=== PATIENT | female | born 1935 | race Native Hawaiian/Other Pacific Islander ===

== ENCOUNTER 2018-03-30 10:27 | Emergency (ER) | payer MEDICARE ==
[2018-03-30 10:42] VITALS: BMI 30.1
--- NOTE | 2018-03-30 10:52 | ED PDOC ---
Arrival/HPI - General Chief Complaint: Dizziness/Lightheaded Time Seen by Provider: 03/30/18 10:48 Historian: Patient - History of Present Illness Narrative History of Present Illness (Text): 03/30/18 10:45 82 year old female, whose PMH includes hypertension, diabetes, CVA, and atrial fibrillation, who presents to the emergency department complaining of dizziness since one week. Patient reports also having chest discomfort, mild shortness of breath, and abdominal pain that began 3 days ago. Patient associates her abdominal pain with lack of appetite. She denies taking medication for her atrial fibrillation. Patient denies nausea, vomiting, diarrhea, headache, dysruria, hematuria, or other complaints. PMD Dr. William Time/Duration: 1 week Symptom Onset: Gradual Symptom Course: Unchanged Context: Standing Past Medical History - Provider Review Nursing Documentation Reviewed: Yes - Infectious Disease Hx of Infectious Diseases: None - Reproductive Menopause: Yes - Cardiac Hx Atrial Fibrillation: Yes Hx Hypertension: Yes - Neurological HX Cerebrovascular Accident: Yes - Psychiatric Hx Substance Use: No Family/Social History - Physician Review Nursing Documentation Reviewed: Yes Family/Social History: Unknown Family HX Smoking Status: Never Smoked Hx Alcohol Use: No Hx Substance Use: No Allergies/Home Meds Allergies/Adverse Reactions: Allergies No Known Allergies Allergy (Verified 03/23/18 12:44) Home Medications: Home Meds Medication Instructions Recorded Confirmed Metoprolol Tartrate [Lopressor] 0 mg PO DAILY 03/23/18 03/23/18 metFORMIN [glucOPHAGE] 0 mg PO DAILY 03/23/18 03/23/18 Review of Systems - Review of Systems Constitutional: absent: Fevers ENT: absent: Sinus Congestion Respiratory: SOB. absent: Cough Cardiovascular: Chest Pain Gastrointestinal: Abdominal Pain, Appetite Changes. absent: Diarrhea Genitourinary Female: absent: Dysuria Musculoskeletal: absent: Back Pain Skin: absent: Rash Neurological: Dizziness. absent: Headache Endocrine: absent: Diaphoresis Physical Exam Vital Signs Temp Pulse Resp BP Pulse Ox 03/30/18 14:08 98 F 86 18 164/84 H 98 03/30/18 14:00 98 F 86 18 164/84 H 98 03/30/18 12:56 86 20 169/107 H 97 03/30/18 10:46 98.3 F 104 H 19 145/84 96 Appearance: Positive for: Well-Appearing, Non-Toxic, Comfortable Pain Distress: None Mental Status: Positive for: Alert and Oriented X 3 - Systems Exam Head: Present: Atraumatic, Normocephalic Pupils: Present: PERRL Extroacular Muscles: Present: EOMI Conjunctiva: Present: Normal Respiratory/Chest: Present: Clear to Auscultation, Good Air Exchange. No: Respiratory Distress, Accessory Muscle Use, Wheezes, Rhonchi Cardiovascular: Present: Irregular Rhythm. No: Regular Rate and Rhythm, Murmurs , Normal S1, S2 Abdomen: Present: Normal Bowel Sounds. No: Tenderness, Distention, Peritoneal Signs, Rebound, Guarding Lower Extremity: Present: Normal Inspection, NORMAL PULSES, Normal ROM, Neurovascularly Intact, Capillary Refill < 2 s. No: Edema, Tenderness, Swelling , Erythema, Deformity Neurological: Present: GCS=15, CN II-XII Intact, Speech Normal Skin: Present: Warm, Dry, Normal Color. No: Rashes Psychiatric: Present: Alert, Oriented x 3, Normal Insight, Normal Concentration Medical Decision Making ED Course and Treatment: 03/30/18 Impression: 82 year old female with irregularly irregular complaining of shortness of breath and chest discomfort Plan: -- EKG -- Labs -- Chest X-ray -- Urinalysis -- Reassess and disposition Progress Notes: 03/30/18 11:20 Chest X-ray: Creator : Evan Borrero MD COMPARISON: 09/14/2016 FINDINGS: LUNGS: No active pulmonary disease. PLEURA: No significant pleural effusion identified, no pneumothorax apparent. CARDIOVASCULAR: Normal. OSSEOUS STRUCTURES: No significant abnormalities. VISUALIZED UPPER ABDOMEN: Normal. OTHER FINDINGS: None. IMPRESSION: No active disease. 03/30/18 13:00 On reevaluation the patient feels better and is in no acute distress or feeling dizziness. I have discussed the results and plan with the patient, who expresses understanding. Patient given the opportunity to ask question, all questions were answered and there is agreement with the plan to discharge the patient home. Patient is stable for discharge and is requesting to eat something. 03/30/18 13:20 Case discussed with STEFANIE Malhotra, covering for Dr. William. STEFANIE states that he sent the patient to the emergency department due to her feeling dizziness and need assistance to ambulate, which made him concerned. If patient can ambulate, she can probably go home. 03/30/18 13:45 Patient is able to ambulate with minimal assistance and states she uses cane at home, this is her baseline ambulation sans cane. Patient also noted that she takes Meclizine for dizziness, but ran out of the medication a month ago. Will discharge with Rx for meclizine, advised outpatient followup and return to ED if symptoms do not improve. 03/30/18 EKG: Ordered, reviewed, and independently interpreted the EKG. Rate : 104 BPM Rhythm : Atrial fibrillation Interpretation : QTC [address] elevation - Lab Interpretations Lab Results: 03/30/18 11:00 03/30/18 11:00 Lab Results 03/30/18 11:24: Urine Color Yellow, Urine Appearance Clear, Urine pH 6.5, Ur Specific [place] 1.010, Urine Protein 30 H, Urine Glucose (UA) Negative, Urine Ketones Negative, Urine Blood Trace-lysed H, Urine Nitrate Negative, Urine Bilirubin Negative, Urine Urobilinogen 0.2, Ur Leukocyte Esterase Negative, Urine RBC 1 - 3, Urine WBC 0 - 2, Ur Epithelial Cells 3 - 4, Urine Bacteria Few 03/30/18 11:00: Sodium 143, Potassium 3.7, Chloride 105, Carbon Dioxide 27, Anion Gap 14, BUN 13, Creatinine 0.7, Est GFR ( Amer) > 60, Est GFR (Non- Af Amer) > 60, Random Glucose 161 H, Calcium 9.1, Magnesium 1.9, Total Bilirubin 0.8, AST 21, ALT 22, Alkaline Phosphatase 59, Lactate Dehydrogenase 528, Total Creatine Kinase 49, Troponin I < 0.01, Total Protein 7.4, Albumin 4.0 , Globulin 3.4, Albumin/Globulin Ratio 1.2 03/30/18 11:00: PT 12.3, INR 1.07, APTT 33.0 03/30/18 11:00: WBC 6.5, RBC 4.71, Hgb 14.8, Hct 42.5, MCV 90.2, MCH 31.4, MCHC 34.8, RDW 13.6, Plt Count 209, MPV 10.2, Gran % 55.2, Lymph % (Auto) 33.9, Garvin % (Auto) 6.9 H, Eos % (Auto) 3.2, Baso % (Auto) 0.8, Gran # 3.61, Lymph # (Auto ) 2.2, Garvin # (Auto) 0.5, Eos # (Auto) 0.2, Baso # (Auto) 0.05 03/30/18 10:45: POC Glucose (mg/dL) 150 H I have reviewed the lab results: Yes - RAD Interpretation Radiology Orders: 03/30/18 10:49 CHEST PORTABLE [RAD] Stat Membership Sales Advisor: Radiologist - EKG Interpretation Interpreted by ED Physician: Yes Type: 12 lead EKG - Medication Orders Current Medication Orders: Discontinued Medications Sodium Chloride (Sodium Chloride 0.9%) 1,000 mls @ 999 mls/hr IV .Q1H1M STA Stop: 03/30/18 12:42 Last Admin: 03/30/18 11:52 Dose: 999 mls/hr eMAR Start Stop Document 03/30/18 11:52 SRE (Rec: 03/30/18 11:53 SRE [id number]) Intravenous Solution Start Date 03/30/18 Start Time 11:52 End Date 03/30/18 End time 12:55 Total Infusion Time 63 - Scribe Statement The provider has reviewed the documentation as recorded by the Sobeidaibe Carmen Castro Provider Scribe Attestation: All medical record entries made by the Scribe were at my direction and personally dictated by me. I have reviewed the chart and agree that the record accurately reflects my personal performance of the history, physical exam, medical decision making, and the department course for this patient. I have also personally directed, reviewed, and agree with the discharge instructions and disposition. Disposition/Present on Arrival - Present on Arrival Any Indicators Present on Arrival: No History of DVT/PE: No History of Uncontrolled Diabetes: No Urinary Catheter: No History of Decub. Ulcer: No History Surgical Site Infection Following: CABG - Mediastinitis - Disposition Have Diagnosis and Disposition been Completed?: Yes Diagnosis: Dizziness Disposition: HOME/ ROUTINE Disposition Time: 14:08 Patient Plan: Discharge Condition: STABLE Discharge Instructions (ExitCare): Vertigo (a Type of Dizziness) (DC) Additional Instructions: KESHIA BASHIR, thank you for letting us take care of you today. Your provider was Katelyn Paige MD and you were treated for DIZZINESS. The emergency medical care you received today was directed at your acute symptoms. If you were prescribed any medication, please fill it and take as directed. It may take several days for your symptoms to resolve. Return to the Emergency Department if your symptoms worsen, do not improve, or if you have any other problems. Please contact your doctor or call one of the physicians/clinics you have been referred to that are listed on the Patient Visit Information form that is included in your discharge packet. Bring any paperwork you were given at discharge with you along with any medications you are taking to your follow up visit. Our treatment cannot replace ongoing medical care by a primary care provider outside of the emergency department. Thank you for allowing the [facility] team to be part of your care today. If you had an X-Ray or CT scan: A Radiologist will review the ED reading if any change in treatment is needed we will contact you. If you had a blood, urine, or wound culture: It will take several days for the results, if any change in treatment is needed we will contact you. If you had an STI test: It will take 48 hours for the results. Please call after 1 week if you have not heard back. Prescriptions: Meclizine [Meclizine*] 25 mg PO Q6 #14 tab Referrals: Teagan Pearce MD [Primary Care Provider] - Follow up with primary Forms: [employer] (Malawian)
[2018-03-30 11:10] LABS: BASO # 0.05 K/mm3 (0.0-2.0); BASO % 0.8 % (0.0-3.0); EOS # 0.2 (0.0-0.7); EOS % 3.2 % (1.5-5.0); GRAN # 3.61 (1.4-6.5); GRAN % 55.2 % (50.0-68.0); HEMOGLOBIN 14.8 g/dL (12.0-16.0); LYMPH # 2.2 (1.2-3.4); LYMPH % 33.9 % (22.0-35.0); MEAN CELL VOLUME 90.2 fl (80.0-105.0); MEAN CORPUSCULAR HEMOGLOBIN 31.4 pg (25.0-35.0); MEAN CORPUSCULAR HGB CONC 34.8 g/dl (31.0-37.0); MEAN PLATELET VOLUME 10.2 fl (7.0-11.0); MONO # 0.5 (0.1-0.6); MONO % 6.9 % (1.0-6.0); RBC 4.71 10^6/uL (3.5-6.1); RED CELL DISTRIBUTION WIDTH 13.6 % (11.5-14.5); WHITE BLOOD COUNT 6.5 10^3/ul (4.5-11.0)
--- NOTE | 2018-03-30 11:17 | RAD ---
Date of service: 03/30/2018 HISTORY: chest pain COMPARISON: 09/14/2016 FINDINGS: LUNGS: No active pulmonary disease. PLEURA: No significant pleural effusion identified, no pneumothorax apparent. CARDIOVASCULAR: Normal. OSSEOUS STRUCTURES: No significant abnormalities. VISUALIZED UPPER ABDOMEN: Normal. OTHER FINDINGS: None. IMPRESSION: No active disease.
[2018-03-30 11:22] LABS: PROTHROMBIN TIME 12.3 SECONDS (9.4-12.5)
[2018-03-30 11:23] LABS: INR 1.07 (0.93-1.08)
[2018-03-30 11:27] LABS: ALB/GLOB RATIO 1.2 (1.1-1.8); ALT/SGPT 22 U/L (7-56); AST/SGOT 21 U/L (14-36); BLOOD UREA NITROGEN 13 mg/dL (7-21); CALCIUM 9.1 mg/dL (8.4-10.5); GFR AFRICAN-AMERICAN > 60; GFR NON-AFRICAN AMERICAN > 60
[2018-03-30 11:27] LABS: PH,URINE 6.5 (4.7-8.0); URINE BILIRUBIN NEGATIVE (NEGATIVE); URINE BLOOD TRACE-LYSED (NEGATIVE); URINE GLUCOSE (UA) NEGATIVE (NEGATIVE); URINE LEUKOCYTE ESTERASE NEGATIVE Leu/uL (NEGATIVE); URINE PROTEIN 30 mg/dL (<30 mg/dL); URINE UROBILINOGEN 0.2 E.U./dL (<1 E.U./dL)
[2018-03-30 11:28] LABS: URINE APPEARANCE CLEAR (CLEAR); URINE COLOR YELLOW (YELLOW)
[2018-03-30 11:40] LABS: URINE BACTERIA FEW (NEG); URINE WBC 0 - 2 /hpf (0-6)
[2018-03-30 11:41] LABS: TROPONIN I < 0.01 ng/mL
[2018-03-30] MEDS ORDERED: Sodium Chloride 0.9% 1,000 ML IV STA (11:42)
[2018-03-30 12:57] VITALS: PULSE 86
[2018-03-30 14:08] VITALS: BP 164/84; RESP 18; TEMP 98; O2SAT 98
--- NOTE | 2018-03-30 17:32 | CARD ---
APPROVED REPORT Date of service: 03/30/2018 EKG Measurement Heart [id number] <Conclusion> Atrial fibrillation with rapid ventricular response Abnormal ECG
== END 2018-03-30 14:08 | disposition home or self-care (01) ==
LOC: ED 10:27
DX: R42 Dizziness and giddiness (principal); I10 Essential (primary) hypertension; I48.91 Unspecified atrial fibrillation; E11.9 Type 2 diabetes mellitus without complications; Z86.73 Personal history of transient ischemic attack (TIA), and cerebral infarction without residual deficits
CPT/HCPCS: 71045; 80053; 81001; 82550; 82948; 83615; 83735; 84484; 85025; 85610; 85730; 93005; 96360; 99285; J7030

== ENCOUNTER 2018-04-16 06:17 | Day surgery (SDC) | payer MEDICARE ==
--- NOTE | 2018-04-14 02:15 | HP ---
Copied To: Jie Hilton MD Attending MD: Jie Hilton MD REASON FOR ADMISSION: Left heart cath, possible angioplasty, abnormal stress test, history of atrial fibrillation. BRIEF CLINICAL HISTORY: This is an 82-year-old female with past medical history significant for atrial fibrillation, hypertension, hyperlipidemia, on Eliquis, history of CVA, obesity, being admitted for left heart cath, possible angioplasty, because the patient's abnormal stress test. PAST MEDICAL HISTORY: Significant for diabetes, hypertension, hyperlipidemia, chronic atrial fibrillation, on Eliquis. RECENT CARDIAC WORKUP: The patient had a stress test dated 03/23/2018 that showed an abnormal stress myocardial perfusion study, reversible ischemia, anterior defect suspicious for ischemia, ejection fraction of 63%. The patient had echocardiography dated 03/18/2018 that showed ejection fraction of 55%, biatrial enlargement in long axis. The patient is in AFib, mild to moderate aortic regurgitation, moderate mitral regurgitation, trace tricuspid regurgitation. CURRENT MEDICATIONS: The patient is taking meclizine 25 mg daily, metoprolol tartrate every a.m., clopidogrel 75 mg daily, simvastatin 20 mg daily, Hamilton-3, Pepcid, amlodipine, valsartan 80, metformin, hydrocortisone gel p.r.n. ALLERGIES: NO KNOWN DRUG ALLERGY. REVIEW OF SYSTEMS: As per HPI. SOCIAL HISTORY: Denies smoking. Denies any history of alcohol abuse. FAMILY HISTORY: Noncontributory at this stage of the life. PHYSICAL EXAMINATION: As follows; GENERAL: Height of the patient is 5 feet 3 inches, weight of the patient is 170 pounds, body mass index 30 kg/sq m. HEENT: PERRLA. Extraocular muscles intact. NECK: Supple. No carotid bruits or thyromegaly. CHEST: Clear to auscultation. HEART: S1 and S2, regular. ABDOMEN: Soft. EXTREMITIES: Clubbing and cyanosis negative. LABORATORY DATA: Blood workup pending. IMPRESSION: An 82-year-old female with a past medical history of diabetes, hypertension, hyperlipidemia, abnormal stress test, suspicious for ischemia, ejection fraction 60%-65%, chronic atrial fibrillation, moderate mitral regurgitation, trace tricuspid regurgitation, mild to moderate aortic regurgitation. No evidence of aortic stenosis. Scheduled for elective cardiac cath, possible angioplasty because of abnormal stress test. We will review the blood workup when available; after that, we will proceed for cardiac catheterization. Risks, benefits, and alternatives were discussed with the patient, patient agreed. We will proceed for cardiac catheterization. Thank you Dr. Rollins for providing us the opportunity in taking care of the patient, Hermila Arellano. iJe Hilton MD cc:
[2018-04-16 07:11] LABS: BASO # 0.03 K/mm3 (0.0-2.0); BASO % 0.4 % (0.0-3.0); EOS # 0.3 (0.0-0.7); GRAN % 58.8 % (50.0-68.0); HEMOGLOBIN 14.8 g/dL (12.0-16.0); LYMPH # 1.9 (1.2-3.4); LYMPH % 28.1 % (22.0-35.0); MEAN CELL VOLUME 90.8 fl (80.0-105.0); MEAN CORPUSCULAR HEMOGLOBIN 31.6 pg (25.0-35.0); MEAN CORPUSCULAR HGB CONC 34.8 g/dl (31.0-37.0); MEAN PLATELET VOLUME 9.6 fl (7.0-11.0); MONO # 0.6 (0.1-0.6); MONO % 8.7 % (1.0-6.0); RBC 4.68 10^6/uL (3.5-6.1); RED CELL DISTRIBUTION WIDTH 13.4 % (11.5-14.5); WHITE BLOOD COUNT 6.8 10^3/ul (4.5-11.0)
[2018-04-16 07:16] LABS: BLOOD UREA NITROGEN 15 mg/dL (7-21); CALCIUM 9.5 mg/dL (8.4-10.5); GFR AFRICAN-AMERICAN > 60; GFR NON-AFRICAN AMERICAN > 60; HDL CHOLESTEROL 34 mg/dL (29-60)
[2018-04-16 07:17] LABS: INR 0.99; PARTIAL THROMBOPLASTIN TIME 34.1 Seconds (25.1-36.5); PROTHROMBIN TIME 11.4 SECONDS (9.4-12.5)
[2018-04-16 07:27] LABS: LDL CHOLESTEROL 91 mg/dL (0-129)
[2018-04-16 07:43] VITALS: O2SAT 96
[2018-04-16] MEDS ORDERED: Iodixanol 320 MG/ML 200 ML BOTTLE IV ONE (09:57)
[2018-04-16] MEDS ORDERED: Iohexol 350mgl/ml 50 ML ONE (09:57)
[2018-04-16] MEDS ORDERED: Lidocaine PF 2% (5 ml) Inj (For Cardiac Arrhy) ONE (09:58)
[2018-04-16] MEDS ORDERED: Verapamil 2 ML ONE ×2 (09:59)
[2018-04-16] MEDS ORDERED: Midazolam 2 MG/2 ML VIAL ONE (10:23)
[2018-04-16] MEDS ORDERED: Eptifibatide 20 mg/10mL Inj IVP ONE (10:48)
[2018-04-16] MEDS ORDERED: Sodium Chloride 0.9% 1,000 ML IV SCH (11:30)
--- NOTE | 2018-04-16 11:35 | CARD ---
APPROVED REPORT Date of service: 04/16/2018 EKG Measurement Heart [id number] <Conclusion> Atrial fibrillation Moderate Rate.
[2018-04-16 12:01] VITALS: TEMP 97.6
--- NOTE | 2018-04-16 12:06 | CPOSTOP ---
Copied To: Jie Hilton MD Attending MD: Jie Hilton MD DATE: 04/16/2018 CARDIOVASCULAR LAB POST PROCEDURE NOTE PHYSICIAN: Jie Hilton MD BANQUET COORDINATOR: Ruperto Celis. TYPE OF ANESTHESIA: Moderate conscious sedation, total 1 mg of Versed, 50 mcg of fentanyl was given. PRE-PROCEDURE DIAGNOSES: Chest pain, abnormal stress test, anterior wall ischemia. PROCEDURE PERFORMED: Left heart catheterization/angioplasty of LAD with bare metal stent. FINDINGS: Single vessel disease. FINAL DIAGNOSIS: One-vessel disease. POST PROCEDURE CONDITION: Stable. VASCULAR ACCESS SITE: Right femoral artery. CLOSURE DEVICE: Angio-Seal. RADIATION DOSE: 7888.01 milligray unit. FLUORO TIME: 5.6 minute. Jie Hilton MD
--- NOTE | 2018-04-16 13:13 | CARD ---
APPROVED REPORT Date of service: 04/16/2018 EKG Measurement Heart [id number] <Conclusion> Atrial fibrillation Abnormal ECG
[2018-04-16] MEDS ORDERED: Insulin Reg-LOW-Coverage SC SCH (16:30)
--- NOTE | 2018-04-16 16:38 | CARD ---
APPROVED REPORT Date of service: 04/16/2018 Procedure(s) performed: Left Heart Catheterization PTCA with Stenting of Mid LAD with ELEANOR. HISTORY The patient is a 82 year-old female with a history of : most recent EF: 67%. (EF Method: RADIONUCLIDE), previous CVA remote >= 2 weeks, diabetes mellitus with oral treatment , previous diagnostic cath, hypertension , dyslipidemia , cerebrovascular disease , Hx of A fib on Eliquis but non comliance to meds. INDICATION The indication(s) include : positive stress test, arrhythmia, atrial fibrillation. CASE TECHNIQUE The patient was brought electively to the Cardiac Catheterization Laboratory in a fasting state and was prepped and draped in a sterile manner. The right femoral groin was infiltrated with 2% Lidocaine subcutaneous anesthesia. A 6 Fr x 11 cm Marianela sheath was inserted into the right femoral artery without difficulty. Coronary angiography was performed using coronary diagnostic catheters. The left coronary system was accessed and visualized with a Diagnostic , 6F JL4 CATH DXT 100 CM catheter. The right coronary system was accessed and visualized with a Diagnostic ,6F JR 4 CATH DXT 100 CM catheter. The left ventricle was accessed and visualized with a 6F PIGTAIL 145 CATH DXT 110 CM catheter. Left ventricular/Aortic Valve gradient assessed on pullback. Left ventriculogram was performed in ODONNELL projection. Closure device was deployed with a 6 Fr Angio-Seal without any complications. The patient tolerated the procedure well and there were no complications associated with the procedure. Vessel Analysis The patient's coronary anatomy is right dominant. The left main coronary artery is a large size vessel with diffuse calcification noted throughout this vessel and without significant stenosis. The left main bifurcates to the left anterior descending and circumflex. The left anterior descending artery is a medium size vessel with diffuse calcification noted throughout this vessel and with significant stenosis. There is a 80% stenosis in the mid segment. The first diagonal branch is a small size vessel with diffuse calcification noted throughout this vessel and without significant stenosis. The second diagonal branch is a small size vessel with diffuse calcification noted throughout this vessel and without significant stenosis. The circumflex artery is a medium size vessel with diffuse calcification noted throughout this vessel and without significant stenosis. The first obtuse marginal branch is a medium size vessel with diffuse calcification noted throughout this vessel and without significant stenosis. The right coronary artery is a medium size vessel with diffuse calcification noted throughout this vessel and without significant stenosis. There is a 30-40%% stenosis in the distal segment. The right posterior descending artery is a medium size vessel with diffuse calcification noted throughout this vessel and without significant stenosis. The right posterolateral branch is a medium size vessel with diffuse calcification noted throughout this vessel and without significant stenosis. Left Ventricle The left ventricle is normal in size with normal contractility. There was no cardiomyopathy. The left ventricular ejection fraction is estimated to be 55%. The left ventricular end diastolic pressure is 15-20 mmHg. There was no gradient across the aortic valve upon pullback. PCI Technique Lesion Anticoagulation was achieved with Heparin. Percutaneous coronary intervention was performed on the mid left anterior descending artery segment. The lesion stenosis prior to intervention was 80% with ALESIA 2 flow. A 6 Fr JL 3.5 Launcher Guide Catheter was used to engage the ostium. A BeQuan 182 Interventional Guidewire was used to cross the lesion. BALLOON DILATION A Balloon catheter 2.5 x 10 mm Sprinter RX was inserted and inflated up to 12.00atm for 9seconds. STENT DEPLOYMENT A drug-eluting stent 3.0 x 15 mm Vision BMS was inserted and inflated up to 12.00atm for 9seconds. POST STENT DEPLOYMENT BALLOON DILATION A Balloon catheter 3.25 x 9 mm Sprinter NC was inserted and inflated up to 12.00atm for 20seconds. Final angiography reveals 0 % stenosis with ALESIA 3 flow. Conclusion One vessel CAD involving Mid LAD. Preserved Lv Fx. EF-55%, EDP-15-20 mmof hg. Successful PTCA with BMS( BMS used b/c pt is non compliant to meds, on Eliquis for A fib., and alsao has unsteady gait). Recommendations Cardiac Rehabilitation Referral Aggressive Medical TherapyCardiac Risk Reduction Program Weight Loss Reduction Program Continue Eliquis for Afib plus Plavix for 4 weeks. then ASA and eliquis. CC; waqar William / Ayo.
[2018-04-16 17:04] LABS: BASO # 0.03 K/mm3 (0.0-2.0); BASO % 0.4 % (0.0-3.0); EOS # 0.2 (0.0-0.7); EOS % 3.2 % (1.5-5.0); GRAN # 3.9 (1.4-6.5); GRAN % 56.6 % (50.0-68.0); HEMOGLOBIN 14.1 g/dL (12.0-16.0); LYMPH # 2.4 (1.2-3.4); LYMPH % 34.4 % (22.0-35.0); MEAN CELL VOLUME 90.2 fl (80.0-105.0); MEAN CORPUSCULAR HEMOGLOBIN 31.3 pg (25.0-35.0); MEAN CORPUSCULAR HGB CONC 34.6 g/dl (31.0-37.0); MEAN PLATELET VOLUME 9.3 fl (7.0-11.0); MONO # 0.4 (0.1-0.6); MONO % 5.4 % (1.0-6.0); RBC 4.51 10^6/uL (3.5-6.1); RED CELL DISTRIBUTION WIDTH 13.4 % (11.5-14.5); WHITE BLOOD COUNT 6.9 10^3/ul (4.5-11.0)
[2018-04-16 17:13] LABS: BLOOD UREA NITROGEN 12 mg/dL (7-21); CALCIUM 8.7 mg/dL (8.4-10.5); GFR AFRICAN-AMERICAN > 60; GFR NON-AFRICAN AMERICAN > 60
[2018-04-16 17:56] VITALS: BP 121/66; PULSE 82; RESP 19
== END 2018-04-16 18:41 | disposition home or self-care (01) ==
LOC: CATH 06:17 → 2RSO 11:39 → CATH 18:41
PROVIDERS: ATTEND Internal Medicine Cardiovascular Disease
DX: I25.10 Atherosclerotic heart disease of native coronary artery without angina pectoris (principal); I10 Essential (primary) hypertension; E11.9 Type 2 diabetes mellitus without complications; I08.3 Combined rheumatic disorders of mitral, aortic and tricuspid valves; E78.5 Hyperlipidemia, unspecified; E66.9 Obesity, unspecified; I48.2 Chronic atrial fibrillation; Z79.01 Long term (current) use of anticoagulants; Z86.73 Personal history of transient ischemic attack (TIA), and cerebral infarction without residual deficits; Z68.30 Body mass index [BMI] 30.0-30.9, adult; Z91.14 Patient's other noncompliance with medication regimen
CPT/HCPCS: 36415; 80048; 80061; 82948; 85025; 85175; 85610; 85730; 86850; 86900; 92928; 93005; 93458; 99152; 99153; C1725 ×2; C1760; C1769 ×2; C1876; C1887; C2629; J1327; J1644 ×2; J2250; J3010; Q9966; Q9967

== ENCOUNTER 2019-01-09 03:03 | Inpatient (IN) | payer MEDICARE, OTHER ==
[2019-01-09] MEDS ORDERED: Sodium Chloride 0.9% 1,000 ML IV ONE (03:27)
[2019-01-09 04:44] VITALS: BMI 29.7
[2019-01-09 04:48] LABS: ALB/GLOB RATIO 1.2 (1.1-1.8); ALBUMIN 4.5 g/dL (3.0-4.8); ALT/SGPT < 6 U/L (7-56); AST/SGOT 23 U/L (14-36); BLOOD UREA NITROGEN 12 mg/dL (7-21); CALCIUM 9.5 mg/dL (8.4-10.5); GFR NON-AFRICAN AMERICAN > 60
[2019-01-09 04:49] LABS: INR 1.03; PARTIAL THROMBOPLASTIN TIME 36.4 Seconds (26.9-38.3); PROTHROMBIN TIME 11.4 SECONDS (9.4-12.5); TROPONIN I 0.01 ng/mL; WHITE BLOOD COUNT 9.9 10^3/uL (4.5-11.0)
[2019-01-09 04:50] LABS: BASO % 0.3 % (0.0-3.0); EOS % 3.3 % (1.5-5.0); HEMOGLOBIN 15.9 g/dL (12.0-16.0); LYMPH % 45.1 % (22.0-35.0); MEAN CELL VOLUME 92.1 fl (80.0-105.0); MEAN CORPUSCULAR HEMOGLOBIN 31.5 pg (25.0-35.0); MEAN CORPUSCULAR HGB CONC 34.3 g/dl (31.0-37.0); MEAN PLATELET VOLUME 10.5 fl (7.0-11.0); MONO % 4.8 % (1.0-6.0); RBC 5.04 10^6/uL (3.5-6.1); RED CELL DISTRIBUTION WIDTH 13.6 % (11.5-14.5)
[2019-01-09 04:51] LABS: BASO # 0.03 K/mm3 (0.0-2.0); EOS # 0.3 (0.0-0.7); LYMPH # 4.5 (1.2-3.4); MONO # 0.5 (0.1-0.6)
--- NOTE | 2019-01-09 05:43 | CP.PCM.HP ---
<Rio Hamilton - Last Filed: 01/09/19 07:04> History of Present Illness - History of Present Illness History of Present Illness: HISTORY & PHYSICAL NOTE FOR HOSPITALIST SERVICE- DR. DAX HAMILTON PGY1 cc: dizziness 83 y/o F polish with PMH of Afib, CAD s/p BM LAD stent, hx CVA w/minimal R sided deficits(10+ yrs ago), HTN, HLD, DM2, R breast ca s/p lumpectomy, obesity presents to ED with complaints of dizziness, nausea and non-bloody non-bilious, clear vomiting that started yesterday evening. Pt reports she normally is able to walk at home without a cane and noticed dizziness only yesterday evening. She hasn't ate anything unusual and denies recent travel, sick contacts. Pt is a very poor historian. She denies fevers, chills, chest pain, palpitations, shortness of breath, current nausea, vomiting, constipation, diarrhea, dysuria PMH: Afib, CAD s/p BM LAD stent(04/2018), hx CVA w/ minimal residual R sided deficits, HTN, HLD, DM2, obesity All: Denies PSH: cholecystectomy, R breast ca s/p lumpectomy, b/l TKR (20+ years ago) @[facility]: denies tobacco/ETOH/drug use Hosp: Denies recent hospitalization FH: Mother/Father: , no medical problems Meds: Pt unable to confirm-poor historian- will confirm in am PMD: Dr. Teagan William Pharmacy: [address] Present on Admission - Present on Admission Any Indicators Present on Admission: No Review of Systems - Review of Systems Review of Systems: per HPI Past Patient History - Infectious Disease Hx of Infectious Diseases: None - Past Social History Smoking Status: Never Smoked - CARDIAC Hx Cardiac Disorders: Yes Hx Hypercholesterolemia: Yes Hx Hypertension: Yes - NEUROLOGICAL Hx Neurological Disorder: Yes HX Cerebrovascular Accident: Yes (2013) Hx Paralysis: No - ENDOCRINE/METABOLIC Hx Endocrine Disorders: Yes Hx Diabetes Mellitus Type 2: Yes - HEMATOLOGICAL/ONCOLOGICAL Hx Blood Transfusions: No Hx Blood Transfusion Reaction: No - MUSCULOSKELETAL/RHEUMATOLOGICAL Hx Musculoskeletal Disorders: No - PSYCHIATRIC Hx Emotional Abuse: No Hx Physical Abuse: No Hx Substance Use: No - SURGICAL HISTORY Hx Surgeries: Yes Hx Breast Biopsy: Yes Hx Cholecystectomy: Yes - ANESTHESIA Hx Anesthesia Reactions: (UNKNOWN- COULD NOT REMEMBER) Hx Malignant Hyperthermia: No Meds Allergies/Adverse Reactions: Allergies Allergy/AdvReac Type Severity Reaction Status Date / Time No Known Allergies Allergy Verified 01/09/19 06:01 Physical Exam - Constitutional Appears: Well, Non-toxic, No Acute Distress - Head Exam Head Exam: NORMAL INSPECTION, NORMOCEPHALIC - Eye Exam Eye Exam: EOMI, Normal appearance, PERRL Additional comments: b/l cataracts noted - ENT Exam ENT Exam: Mucous Membranes Moist, Normal Exam - Neck Exam Neck exam: Positive for: Normal Inspection - Respiratory Exam Respiratory Exam: Clear to Auscultation Bilateral, NORMAL BREATHING PATTERN - Cardiovascular Exam Cardiovascular Exam: Irregular Rhythm, +S1, +S2 - GI/Abdominal Exam GI & Abdominal Exam: Soft. absent: Tenderness Additional comments: incision scars noted c/d/i Results - Vital Signs Recent Vital Signs: Last Vital Signs Temp 97.6 F 01/09/19 03:05 Pulse 79 01/09/19 03:28 Resp 18 01/09/19 03:28 BP 182/85 H 01/09/19 03:28 Pulse Ox 98 01/09/19 03:28 - Labs Result Diagrams: 01/09/19 03:27 01/09/19 03:27 Labs: Laboratory Results - last 24 hr 01/09/19 01/09/19 01/09/19 03:27 03:27 03:27 WBC 9.9 RBC 5.04 Hgb 15.9 Hct 46.4 MCV 92.1 MCH 31.5 MCHC 34.3 RDW 13.6 Plt Count 196 MPV 10.5 Neut % (Auto) 46.5 L Lymph % (Auto) 45.1 H [place] % (Auto) 4.8 Eos % (Auto) 3.3 Baso % (Auto) 0.3 Lymph # (Auto) 4.5 H [place] # (Auto) 0.5 Eos # (Auto) 0.3 Baso # (Auto) 0.03 Absolute Neuts (auto) 4.60 PT 11.4 INR 1.03 APTT 36.4 Sodium 142 Potassium 3.0 L Chloride 102 Carbon Dioxide 26 Anion Gap 17 BUN 12 Creatinine 0.7 Est GFR ( Amer) > 60 Est GFR (Non-Af Amer) > 60 Random Glucose 220 H Calcium 9.5 Total Bilirubin 0.7 AST 23 ALT < 6 L Alkaline Phosphatase 66 Troponin I 0.01 Total Protein 8.3 Albumin 4.5 Globulin 3.7 Albumin/Globulin Ratio 1.2 Assessment & Plan - Assessment and Plan (Free Text) Assessment: 83 y/o F with PMH of Afib, CAD s/p BM LAD stent 2018, hx CVA, HTN, HLD, DM2, obesity admitted for dizziness, vomiting Plan: Dizziness bedside magui-hallpike negative. CTH: no acute findings obtain orthostatic vital signs Continue home meclizine Physical therapy eval & treat fall precautions Atrial fibrillation Currently not in RVR Will continue home metoprolol Pt denies anticoagulation, will confirm with pharmacy Hypokalemia repleted in ED recheck BMP in am DM2 continue home metformin A1c pending DVT/GI: SCD/pepcid Case reviewed with attending physician, Dr. Dax Hamilton PGY1 <Jessica Verduzco - Last Filed: 01/09/19 10:01> Results - Vital Signs Recent Vital Signs: Last Vital Signs Temp 98.6 F 01/09/19 06:00 Pulse 89 01/09/19 07:11 Resp 18 01/09/19 07:11 BP 170/90 H 01/09/19 07:11 Pulse Ox 96 01/09/19 07:11 - Labs Result Diagrams: 01/09/19 03:27 01/09/19 08:00 Labs: Laboratory Results - last 24 hr 01/09/19 01/09/19 01/09/19 03:27 03:27 03:27 WBC 9.9 RBC 5.04 Hgb 15.9 Hct 46.4 MCV 92.1 MCH 31.5 MCHC 34.3 RDW 13.6 Plt Count 196 MPV 10.5 Neut % (Auto) 46.5 L Lymph % (Auto) 45.1 H [place] % (Auto) 4.8 Eos % (Auto) 3.3 Baso % (Auto) 0.3 Lymph # (Auto) 4.5 H [place] # (Auto) 0.5 Eos # (Auto) 0.3 Baso # (Auto) 0.03 Absolute Neuts (auto) 4.60 PT 11.4 INR 1.03 APTT 36.4 Sodium 142 Potassium 3.0 L Chloride 102 Carbon Dioxide 26 Anion Gap 17 BUN 12 Creatinine 0.7 Est GFR ( Amer) > 60 Est GFR (Non-Af Amer) > 60 POC Glucose (mg/dL) Random Glucose 220 H Calcium 9.5 Phosphorus Magnesium Total Bilirubin 0.7 AST 23 ALT < 6 L Alkaline Phosphatase 66 Troponin I 0.01 Total Protein 8.3 Albumin 4.5 Globulin 3.7 Albumin/Globulin Ratio 1.2 Triglycerides Cholesterol LDL Cholesterol Direct HDL Cholesterol Free T4 TSH 3rd Generation Urine Color Urine Appearance Urine pH Ur Specific [place] Urine Protein Urine Glucose (UA) Urine Ketones Urine Blood Urine Nitrate Urine Bilirubin Urine Urobilinogen Ur Leukocyte Esterase Urine RBC Urine WBC Ur Epithelial Cells Urine Bacteria Influenza Typ A,B (EIA) 01/09/19 01/09/19 01/09/19 03:27 03:27 05:39 WBC RBC Hgb Hct MCV MCH MCHC RDW Plt Count MPV Neut % (Auto) Lymph % (Auto) [place] % (Auto) Eos % (Auto) Baso % (Auto) Lymph # (Auto) [place] # (Auto) Eos # (Auto) Baso # (Auto) Absolute Neuts (auto) PT INR APTT Sodium Potassium Chloride Carbon Dioxide Anion Gap BUN Creatinine Est GFR ( Amer) Est GFR (Non-Af Amer) POC Glucose (mg/dL) Random Glucose Calcium Phosphorus 2.8 Magnesium 1.8 Total Bilirubin AST ALT Alkaline Phosphatase Troponin I Total Protein Albumin Globulin Albumin/Globulin Ratio Triglycerides 200 H Cholesterol 142 LDL Cholesterol Direct 79 HDL Cholesterol 34 Free T4 1.13 TSH 3rd Generation 1.91 Urine Color Urine Appearance Urine pH Ur Specific [place] Urine Protein Urine Glucose (UA) Urine Ketones Urine Blood Urine Nitrate Urine Bilirubin Urine Urobilinogen Ur Leukocyte Esterase Urine RBC Urine WBC Ur Epithelial Cells Urine Bacteria Influenza Typ A,B (EIA) Negative for flu a/b 01/09/19 01/09/19 01/09/19 05:39 07:40 08:00 WBC RBC Hgb Hct MCV MCH MCHC RDW Plt Count MPV Neut % (Auto) Lymph % (Auto) [place] % (Auto) Eos % (Auto) Baso % (Auto) Lymph # (Auto) [place] # (Auto) Eos # (Auto) Baso # (Auto) Absolute Neuts (auto) PT INR APTT Sodium 142 Potassium 4.3 Chloride 105 Carbon Dioxide 29 Anion Gap 13 BUN 11 Creatinine 0.7 Est GFR ( Amer) > 60 Est GFR (Non-Af Amer) > 60 POC Glucose (mg/dL) 196 H Random Glucose 204 H Calcium 8.5 Phosphorus Magnesium Total Bilirubin AST ALT Alkaline Phosphatase Troponin I Total Protein Albumin Globulin Albumin/Globulin Ratio Triglycerides Cholesterol LDL Cholesterol Direct HDL Cholesterol Free T4 TSH 3rd Generation Urine Color Straw Urine Appearance Clear Urine pH 7.0 Ur Specific [place] 1.020 Urine Protein 100 H Urine Glucose (UA) 100 H Urine Ketones Negative Urine Blood Small H Urine Nitrate Negative Urine Bilirubin Negative Urine Urobilinogen 0.2 Ur Leukocyte Esterase Negative Urine RBC 0 - 2 Urine WBC 0 - 2 Ur Epithelial Cells 1 - 3 Urine Bacteria Few Influenza Typ A,B (EIA) 01/09/19 09:16 WBC RBC Hgb Hct MCV MCH MCHC RDW Plt Count MPV Neut % (Auto) Lymph % (Auto) [place] % (Auto) Eos % (Auto) Baso % (Auto) Lymph # (Auto) [place] # (Auto) Eos # (Auto) Baso # (Auto) Absolute Neuts (auto) PT INR APTT Sodium Potassium Chloride Carbon Dioxide Anion Gap BUN Creatinine Est GFR ( Amer) Est GFR (Non-Af Amer) POC Glucose (mg/dL) 226 H Random Glucose Calcium Phosphorus Magnesium Total Bilirubin AST ALT Alkaline Phosphatase Troponin I Total Protein Albumin Globulin Albumin/Globulin Ratio Triglycerides Cholesterol LDL Cholesterol Direct HDL Cholesterol Free T4 TSH 3rd Generation Urine Color Urine Appearance Urine pH Ur Specific [place] Urine Protein Urine Glucose (UA) Urine Ketones Urine Blood Urine Nitrate Urine Bilirubin Urine Urobilinogen Ur Leukocyte Esterase Urine RBC Urine WBC Ur Epithelial Cells Urine Bacteria Influenza Typ A,B (EIA) Attending/Attestation - Attestation I have personally seen and examined this patient.: Yes I have fully participated in the care of the patient.: Yes I have reviewed all pertinent clinical information: Yes Notes (Text): 01/09/19 09:33 Pt seen with the resident. Case discussed. Documentation reviewed. Additional note to physical exam: Ext:No cyanosis,clubbing or edema.No calf tenderness. Neuro Exam:Oriented x 3,speech nl,slight R sided residual weakness n Orders reviewed. Additional orders to include work up for dizziness,namely CT angio of the neck.This was ordered by the hospitalist Additional diagnosis : History of CVA History of Hyperlipidemia History of Coronary artery disease. First troponin1 done in the ER was neg,2nd and 3rd troponin1 ordered. 01/09/19 09:49 01/09/19 09:56 01/09/19 10:00
[2019-01-09 06:05] LABS: URINE BILIRUBIN NEGATIVE (NEGATIVE); URINE BLOOD SMALL (NEGATIVE); URINE GLUCOSE (UA) 100 mg/dL (NEGATIVE); URINE LEUKOCYTE ESTERASE NEGATIVE Leu/uL (NEGATIVE); URINE PROTEIN 100 mg/dL (<30 mg/dL); URINE UROBILINOGEN 0.2 E.U./dL (<1 E.U./dL)
[2019-01-09 06:11] LABS: FREE T4 1.13 ng/dL (0.78-2.19)
[2019-01-09 06:25] LABS: URINE APPEARANCE CLEAR (CLEAR); URINE COLOR STRAW (YELLOW)
[2019-01-09 06:27] LABS: URINE BACTERIA FEW /hpf; URINE RBC 0 - 2 /hpf (0-2); URINE WBC 0 - 2 /hpf (0-6)
[2019-01-09] MEDS ORDERED: Metoprolol 1 mg/ml Inj IVP STA (06:50)
[2019-01-09] MEDS ORDERED: Iohexol 350 MG/100 ML VIAL ONE (08:00)
--- NOTE | 2019-01-09 08:03 | CT ---
Date of service: 01/09/2019 PROCEDURE: CT HEAD WITHOUT CONTRAST. HISTORY: NAUSEA, DIZZINESS COMPARISON: Brain MRI without contrast 07/18/2014. TECHNIQUE: Axial computed tomography images were obtained through the head/brain without intravenous contrast. Radiation dose: Total exam DLP = 905.63 mGy-cm. This CT exam was performed using one or more of the following dose reduction techniques: Automated exposure control, adjustment of the mA and/or kV according to patient size, and/or use of iterative reconstruction technique. FINDINGS: HEMORRHAGE: No intracranial hemorrhage. BRAIN: Good corticomedullary differentiation is seen. Proportional, diffuse expansion of the ventriculosulcal and cisternal spaces is appreciated with white matter lucency compatible with diffuse cerebral atrophy and chronic microangiopathy. No suspicious extra-axial fluid collection is identified and the midline brain anatomy appears grossly nonfocal as imaged. There is no mass effect throughout. VENTRICLES: Unremarkable. No hydrocephalus. CALVARIUM: Unremarkable. PARANASAL SINUSES: Unremarkable as visualized. No significant inflammatory changes. MASTOID AIR CELLS: Unremarkable as visualized. No inflammatory changes. OTHER FINDINGS: None. IMPRESSION: Age-appropriate age related neuro degenerative findings are identified as discussed above. Examination not dramatically changed compared prior brain MRI 07/18/2014. No definite acute findings as per standard CT criteria. Concordant preliminary report from [facility]ha, 01/09/2019, 5:22 a.m..
--- NOTE | 2019-01-09 08:12 | RAD ---
Date of service: 01/09/2019 HISTORY: NAUSEA, DIZZINESS COMPARISON: 03/30/2018 TECHNIQUE: 1 view obtained. FINDINGS: LUNGS: No active pulmonary disease. PLEURA: No significant pleural effusion identified, no pneumothorax apparent. CARDIOVASCULAR: Aortic calcification Normal cardiac size. No pulmonary vascular congestion. OSSEOUS STRUCTURES: No significant abnormalities. VISUALIZED UPPER ABDOMEN: Normal. OTHER FINDINGS: None. IMPRESSION: No active disease.
[2019-01-09 08:35] LABS: BLOOD UREA NITROGEN 11 mg/dL (7-21); CALCIUM 8.5 mg/dL (8.4-10.5); GFR NON-AFRICAN AMERICAN > 60
--- NOTE | 2019-01-09 09:42 | CARD ---
APPROVED REPORT Date of service: 01/09/2019 EKG Measurement Heart [id number] <Conclusion> Atrial fibrillation Abnormal ECG
[2019-01-09] MEDS: Insulin Reg-LOW-Coverage SC SCH ×4 (09:45→22:15)
[2019-01-09 09:53] LABS: ALB/GLOB RATIO 1.2 (1.1-1.8); ALBUMIN 4.1 g/dL (3.0-4.8); ALT/SGPT 8 U/L (7-56); AST/SGOT 23 U/L (14-36)
[2019-01-09] MEDS ORDERED: Metoprolol 1 mg/ml Inj IVP PRN (10:06)
[2019-01-09 10:10] LABS: HEMOGLOBIN 16.1 g/dL (12.0-16.0); MEAN CELL VOLUME 91.6 fl (80.0-105.0); MEAN CORPUSCULAR HEMOGLOBIN 31.4 pg (25.0-35.0); MEAN CORPUSCULAR HGB CONC 34.3 g/dl (31.0-37.0); MEAN PLATELET VOLUME 9.9 fl (7.0-11.0); RBC 5.12 10^6/uL (3.5-6.1); RED CELL DISTRIBUTION WIDTH 13.6 % (11.5-14.5); WHITE BLOOD COUNT 11.8 10^3/uL (4.5-11.0)
[2019-01-09] MEDS ORDERED: Sodium Chloride 0.45% 1,000 ML IV SCH (10:15)
--- NOTE | 2019-01-09 10:23 | CARD ---
APPROVED REPORT Date of service: 01/09/2019 EKG Measurement Heart [id number] <Conclusion> Atrial fibrillation Abnormal ECG
--- NOTE | 2019-01-09 10:24 | CARD ---
APPROVED REPORT Date of service: 01/09/2019 EKG Measurement Heart [id number] <Conclusion> Atrial fibrillation Abnormal ECG
[2019-01-09] MEDS ORDERED: Metoprolol Succinate 100 mg XL Tab PO SCH (11:00)
[2019-01-09] MEDS ORDERED: DiphenhydrAMINE 50 mg/ml Inj IVP STA (12:17)
--- NOTE | 2019-01-09 12:49 | CP.PCM.CON ---
<Alphonse Tony - Last Filed: 01/09/19 17:56> History of Present Illness - History of Present Illness History of Present Illness: PGY6 GI Fellow Consult Note Patient is an 83yo [place] female with past medical history significant for atrial fibrillation, CAD s/p PCI on ASA/plavix, CVA, uncontrolled HTN, DM, breast cancer s/p right lumpectomy who presented to the ED with dizziness. Patient is very uncomfortable at time of interview and is limited in her responses, thus history augmented from medical team and EMR. The patient developed sudden onset dizziness and lightheadedness two days prior to admission which progressively worsened to the point where she was having difficulty ambulating at home. She began to develop nausea and non-bloody, bilious emesis and was brought to the ED for further evaluation. Patient admits that she feels the room spinning at this time and is unable to even open her eyes to look at me during exam as this worsens symptoms. Moving her head in different directions also worsens her dizziness/nausea. She denies any prior episodes similar to this. Has had ongoing nausea/vomiting for the past several hours without much relief from Zofran administered in the hospital. Denies any abdominal pain, change in bowel habits, weight loss 12 system ROS performed and negative except where stated PMHx: See HPI PSHx: Right breast lumpectomy FHx: Patient denies pertinent family history Social: Denies tobacco, EtOH or illicit drug use Endo: Denies EGD/colonoscopy previously Past Patient History - Infectious Disease Hx of Infectious Diseases: None - Past Social History Smoking Status: Never Smoked - CARDIAC Hx Cardiac Disorders: Yes (A-FIB) Hx Cardia Arrhythmia: Yes Hx Congestive Heart Failure: Yes Hx Hypertension: Yes - PULMONARY Hx Respiratory Disorders: No - NEUROLOGICAL HX Cerebrovascular Accident: Yes (10 years ago) - HEENT Hx HEENT Problems: No - RENAL Hx Chronic Kidney Disease: No - ENDOCRINE/METABOLIC Hx Diabetes Mellitus Type 2: Yes - HEMATOLOGICAL/ONCOLOGICAL Hx Blood Disorders: No - INTEGUMENTARY Hx Dermatological Problems: No Other/Comment: dry skin on shins; bl heels black eschar - MUSCULOSKELETAL/RHEUMATOLOGICAL Hx Musculoskeletal Disorders: No Hx Falls: No Hx Unsteady Gait: Yes (walks with cane) - GASTROINTESTINAL Hx Gastrointestinal Disorders: Yes Other/Comment: cholectomy - GENITOURINARY/GYNECOLOGICAL Hx Genitourinary Disorders: No - PSYCHIATRIC Hx Psychophysiologic Disorder: No - SURGICAL HISTORY Hx Surgeries: Yes Hx Cardiac Catheterization: Yes (STENT) Hx Coronary Stent: Yes Hx Orthopedic Surgery: Yes (knee) Other/Comment: R breast lumpectomy - ANESTHESIA Hx Anesthesia Reactions: (UNKNOWN- COULD NOT REMEMBER) Hx Malignant Hyperthermia: No Meds Allergies/Adverse Reactions: Allergies Allergy/AdvReac Type Severity Reaction Status Date / Time No Known Allergies Allergy Verified 01/09/19 06:01 - Medications Medications: Current Medications Amlodipine Besylate (Norvasc) 10 mg PO DAILY [facility] Last Admin: 01/09/19 09:47 Dose: Not Given Aspirin (Aspirin Chewable) 81 mg PO DAILY [facility] Last Admin: 01/09/19 09:47 Dose: Not Given Atorvastatin Calcium (Lipitor) 10 mg PO QAM [facility] Last Admin: 01/09/19 09:47 Dose: Not Given Clonidine HCl (Catapres Tts1 0.1 Mg/24 Hr) 1 patch TD Q7D@1000 [facility] Clopidogrel Bisulfate (Plavix) 75 mg PO DAILY [facility] Last Admin: 01/09/19 09:47 Dose: Not Given Sodium Chloride (Sodium Chloride 0.45%) 1,000 mls @ 100 mls/hr IV .Q10H [facility] Stop: 01/09/19 20:14 Insulin Human Regular (Humulin R Low) 0 units SC ACHS [facility]; Protocol Last Admin: 01/09/19 09:45 Dose: 2 units Meclizine HCl (Antivert) 25 mg PO Q6H [facility] Last Admin: 01/09/19 07:02 Dose: 25 mg Metoprolol Succinate (Toprol Xl) 100 mg PO BRK [facility] Metoprolol Tartrate (Lopressor) 5 mg IVP Q6 PRN PRN Reason: Systolic Blood Pressure Ondansetron HCl (Zofran Inj) 4 mg IVP Q4H PRN PRN Reason: Nausea/Vomiting Pantoprazole Sodium (Protonix Inj) 40 mg IVP BID [facility] Physical Exam - Constitutional Additional comments: uncomfortable, nauseated, vomiting - Eye Exam Eye Exam: EOMI, PERRL - ENT Exam ENT Exam: Mucous Membranes Moist - Respiratory Exam Respiratory Exam: Clear to Auscultation Bilateral. absent: Rales, Rhonchi, Wheezes - Cardiovascular Exam Cardiovascular Exam: Tachycardia, REGULAR RHYTHM, +S1, +S2 - GI/Abdominal Exam GI & Abdominal Exam: Normal Bowel Sounds, Soft. absent: Distended, Firm, Guarding, Organomegaly, Rigid, Tenderness - Extremities Exam Extremities exam: Positive for: normal inspection. Negative for: pedal edema - Neurological Exam Neurological exam: Alert, Oriented x3 - Psychiatric Exam Psychiatric exam: Anxious - Skin Skin Exam: Dry, Warm Results - Vital Signs Recent Vital Signs: Last Vital Signs Temp 98.6 F 01/09/19 10:30 Pulse 96 H 01/09/19 10:30 Resp 18 01/09/19 10:36 BP 156/77 H 01/09/19 10:30 Pulse Ox 96 01/09/19 10:30 - Labs Result Diagrams: 01/09/19 10:00 01/09/19 08:00 Labs: Laboratory Results - last 24 hr 01/09/19 01/09/19 01/09/19 03:27 03:27 03:27 WBC 9.9 RBC 5.04 Hgb 15.9 Hct 46.4 MCV 92.1 MCH 31.5 MCHC 34.3 RDW 13.6 Plt Count 196 MPV 10.5 Neut % (Auto) 46.5 L Lymph % (Auto) 45.1 H Jay % (Auto) 4.8 Eos % (Auto) 3.3 Baso % (Auto) 0.3 Lymph # (Auto) 4.5 H Jay # (Auto) 0.5 Eos # (Auto) 0.3 Baso # (Auto) 0.03 Absolute Neuts (auto) 4.60 PT 11.4 INR 1.03 APTT 36.4 Sodium 142 Potassium 3.0 L Chloride 102 Carbon Dioxide 26 Anion Gap 17 BUN 12 Creatinine 0.7 Est GFR ( Amer) > 60 Est GFR (Non-Af Amer) > 60 POC Glucose (mg/dL) Random Glucose 220 H Hemoglobin A1c Calcium 9.5 Phosphorus Magnesium Total Bilirubin 0.7 AST 23 ALT < 6 L Alkaline Phosphatase 66 Troponin I 0.01 Total Protein 8.3 Albumin 4.5 Globulin 3.7 Albumin/Globulin Ratio 1.2 Triglycerides Cholesterol LDL Cholesterol Direct HDL Cholesterol Free T4 TSH 3rd Generation Urine Color Urine Appearance Urine pH Ur Specific [place] Urine Protein Urine Glucose (UA) Urine Ketones Urine Blood Urine Nitrate Urine Bilirubin Urine Urobilinogen Ur Leukocyte Esterase Urine RBC Urine WBC Ur Epithelial Cells Urine Bacteria Influenza Typ A,B (EIA) 01/09/19 01/09/19 01/09/19 03:27 03:27 03:27 WBC RBC Hgb Hct MCV MCH MCHC RDW Plt Count MPV Neut % (Auto) Lymph % (Auto) Jay % (Auto) Eos % (Auto) Baso % (Auto) Lymph # (Auto) Jay # (Auto) Eos # (Auto) Baso # (Auto) Absolute Neuts (auto) PT INR APTT Sodium Potassium Chloride Carbon Dioxide Anion Gap BUN Creatinine Est GFR ( Amer) Est GFR (Non-Af Amer) POC Glucose (mg/dL) Random Glucose Hemoglobin A1c 7.0 H Calcium Phosphorus 2.8 Magnesium 1.8 Total Bilirubin AST ALT Alkaline Phosphatase Troponin I Total Protein Albumin Globulin Albumin/Globulin Ratio Triglycerides 200 H Cholesterol 142 LDL Cholesterol Direct 79 HDL Cholesterol 34 Free T4 1.13 TSH 3rd Generation 1.91 Urine Color Urine Appearance Urine pH Ur Specific [place] Urine Protein Urine Glucose (UA) Urine Ketones Urine Blood Urine Nitrate Urine Bilirubin Urine Urobilinogen Ur Leukocyte Esterase Urine RBC Urine WBC Ur Epithelial Cells Urine Bacteria Influenza Typ A,B (EIA) 01/09/19 01/09/19 01/09/19 05:39 05:39 07:40 WBC RBC Hgb Hct MCV MCH MCHC RDW Plt Count MPV Neut % (Auto) Lymph % (Auto) Jay % (Auto) Eos % (Auto) Baso % (Auto) Lymph # (Auto) Jay # (Auto) Eos # (Auto) Baso # (Auto) Absolute Neuts (auto) PT INR APTT Sodium Potassium Chloride Carbon Dioxide Anion Gap BUN Creatinine Est GFR ( Amer) Est GFR (Non-Af Amer) POC Glucose (mg/dL) 196 H Random Glucose Hemoglobin A1c Calcium Phosphorus Magnesium Total Bilirubin AST ALT Alkaline Phosphatase Troponin I Total Protein Albumin Globulin Albumin/Globulin Ratio Triglycerides Cholesterol LDL Cholesterol Direct HDL Cholesterol Free T4 TSH 3rd Generation Urine Color Straw Urine Appearance Clear Urine pH 7.0 Ur Specific [place] 1.020 Urine Protein 100 H Urine Glucose (UA) 100 H Urine Ketones Negative Urine Blood Small H Urine Nitrate Negative Urine Bilirubin Negative Urine Urobilinogen 0.2 Ur Leukocyte Esterase Negative Urine RBC 0 - 2 Urine WBC 0 - 2 Ur Epithelial Cells 1 - 3 Urine Bacteria Few Influenza Typ A,B (EIA) Negative for flu a/b 0501/09/19 01/09/19 08:00 09:16 10:00 WBC RBC Hgb Hct MCV MCH MCHC RDW Plt Count MPV Neut % (Auto) Lymph % (Auto) Jay % (Auto) Eos % (Auto) Baso % (Auto) Lymph # (Auto) Jay # (Auto) Eos # (Auto) Baso # (Auto) Absolute Neuts (auto) PT INR APTT Sodium 142 Potassium 4.3 Chloride 105 Carbon Dioxide 29 Anion Gap 13 BUN 11 Creatinine 0.7 Est GFR ( Amer) > 60 Est GFR (Non-Af Amer) > 60 POC Glucose (mg/dL) 226 H Random Glucose 204 H Hemoglobin A1c Calcium 8.5 Phosphorus Magnesium Total Bilirubin 0.6 AST 23 ALT 8 Alkaline Phosphatase 59 Troponin I 0.02 D Total Protein 7.6 Albumin 4.1 Globulin 3.5 Albumin/Globulin Ratio 1.2 Triglycerides Cholesterol LDL Cholesterol Direct HDL Cholesterol Free T4 TSH 3rd Generation Urine Color Urine Appearance Urine pH Ur Specific [place] Urine Protein Urine Glucose (UA) Urine Ketones Urine Blood Urine Nitrate Urine Bilirubin Urine Urobilinogen Ur Leukocyte Esterase Urine RBC Urine WBC Ur Epithelial Cells Urine Bacteria Influenza Typ A,B (EIA) 01/09/19 10:00 WBC 11.8 H RBC 5.12 Hgb 16.1 H Hct 46.9 MCV 91.6 MCH 31.4 MCHC 34.3 RDW 13.6 Plt Count 192 MPV 9.9 Neut % (Auto) Lymph % (Auto) Jay % (Auto) Eos % (Auto) Baso % (Auto) Lymph # (Auto) Jay # (Auto) Eos # (Auto) Baso # (Auto) Absolute Neuts (auto) PT INR APTT Sodium Potassium Chloride Carbon Dioxide Anion Gap BUN Creatinine Est GFR ( Amer) Est GFR (Non-Af Amer) POC Glucose (mg/dL) Random Glucose Hemoglobin A1c Calcium Phosphorus Magnesium Total Bilirubin AST ALT Alkaline Phosphatase Troponin I Total Protein Albumin Globulin Albumin/Globulin Ratio Triglycerides Cholesterol LDL Cholesterol Direct HDL Cholesterol Free T4 TSH 3rd Generation Urine Color Urine Appearance Urine pH Ur Specific [place] Urine Protein Urine Glucose (UA) Urine Ketones Urine Blood Urine Nitrate Urine Bilirubin Urine Urobilinogen Ur Leukocyte Esterase Urine RBC Urine WBC Ur Epithelial Cells Urine Bacteria Influenza Typ A,B (EIA) Assessment & Plan - Assessment and Plan (Free Text) Assessment: Patient is an 83yo [place] female with past medical history significant for atrial fibrillation, CAD s/p PCI on ASA/plavix, CVA, uncontrolled HTN, DM, breast cancer s/p right lumpectomy who presented to the ED with dizziness -Vertigo - R/O BPPV vs other central causes -Nausea and vomiting, likely secondary to above -Hypertensive urgency -CAD s/p PCI on ASA/Plavix -Atrial fibrillation -DM -Medical nonadherence Plan: -Ongoing severe dizziness to the point where patient cannot open her eyes -Encourage treatment of vertiginous symptoms to alleviate nausea/vomiting as this is likely the cause -Consider neurology consultation given history of CVA, significant HTN with systolic in 200s on admission and persistent symptoms -Ongoing CVA w/u by primary team ordered - CT head was negative, CTA and MRI pending -Zofran PRN, can also use Reglan sparingly as tolerated -Cardiology consulted -Importance of medical compliance given numerous comorbid conditions stressed to patient -Monitor HGB; emesis does not appear bloody in nature but given frequent retching and emesis, possibility for M-W tear exists -Monitor clinical progress - Date & Time Date: 01/09/19 Time: 10:45 <Rukhsana Paniagua - Last Filed: 01/10/19 21:14> Meds - Medications Medications: Current Medications Amlodipine Besylate (Norvasc) 10 mg PO DAILY [facility] Last Admin: 01/10/19 10:20 Dose: Not Given Aspirin (Aspirin Supp) 600 mg RC DAILY [facility] Last Admin: 01/10/19 14:40 Dose: 600 mg Atorvastatin Calcium (Lipitor) 10 mg PO QAM [facility] Last Admin: 01/10/19 10:21 Dose: Not Given Clonidine HCl (Catapres-Tts3 0.3 Mg/24 Hr) 1 patch TD Q7D@1000 [facility] Last Admin: 01/10/19 16:24 Dose: Not Given Hydralazine HCl (Apresoline) 10 mg IVP Q6H PRN PRN Reason: For SBP >160 Sodium Chloride (Sodium Chloride 0.45%) 1,000 mls @ 50 mls/hr IV .Q20H [facility] Last Admin: 01/10/19 16:25 Dose: Not Given Mannitol (Mannitol) 100 mls @ 100 mls/hr IV Q8H [facility] Last Admin: 05/09/19 16:27 Dose: 100 mls/hr Insulin Human Regular (Humulin R Low) 0 units SC ACHS [facility]; Protocol Last Admin: 01/10/19 17:27 Dose: Not Given Meclizine HCl (Antivert) 25 mg PO Q6H [facility] Last Admin: 01/10/19 15:22 Dose: Not Given Metoprolol Succinate (Toprol Xl) 100 mg PO BRK [facility] Last Admin: 01/10/19 10:21 Dose: Not Given Metoprolol Tartrate (Lopressor) 5 mg IVP Q6 PRN PRN Reason: Systolic Blood Pressure Last Admin: 01/10/19 10:20 Dose: 5 mg Ondansetron HCl (Zofran Inj) 4 mg IVP Q4H PRN PRN Reason: Nausea/Vomiting Last Admin: 01/10/19 10:19 Dose: 4 mg Pantoprazole Sodium (Protonix Inj) 40 mg IVP BID [facility] Last Admin: 01/10/19 17:29 Dose: 40 mg Results - Vital Signs Recent Vital Signs: Last Vital Signs Temp 98.8 F 01/10/19 18:00 Pulse 87 01/10/19 18:20 Resp 22 01/10/19 18:20 BP 198/102 H 01/10/19 18:00 Pulse Ox 96 01/10/19 18:20 - Labs Result Diagrams: 01/10/19 06:30 01/10/19 19:15 Labs: Laboratory Results - last 24 hr 01/09/19 01/10/19 01/10/19 21:45 06:30 06:30 WBC 13.1 H RBC 4.85 Hgb 14.8 Hct 44.3 MCV 91.3 MCH 30.5 MCHC 33.4 RDW 13.8 Plt Count 184 MPV 10.3 Neut % (Auto) 90.4 H Lymph % (Auto) 7.3 L Jay % (Auto) 2.2 Eos % (Auto) 0.0 L Baso % (Auto) 0.1 Lymph # (Auto) 1.0 L Jay # (Auto) 0.3 Eos # (Auto) 0.0 Baso # (Auto) 0.01 Absolute Neuts (auto) 11.85 H Neutrophils % (Manual) 91 H Lymphocytes % (Manual) 9 L Monocytes % (Manual) TEST NOT PERFORMED Platelet Evaluation Normal Sodium 139 Potassium 3.1 L Chloride 103 Carbon Dioxide 25 Anion Gap 15 BUN 15 Creatinine 0.6 L Est GFR ( Amer) > 60 Est GFR (Non-Af Amer) > 60 POC Glucose (mg/dL) 182 H Random Glucose 229 H Calcium 8.7 Phosphorus 2.5 Magnesium 1.6 L Total Bilirubin 0.7 AST 26 ALT 11 Alkaline Phosphatase 60 Total Protein 7.6 Albumin 4.1 Globulin 3.5 Albumin/Globulin Ratio 1.2 01/10/19 01/10/19 01/10/19 07:26 16:33 19:15 WBC RBC Hgb Hct MCV MCH MCHC RDW Plt Count MPV Neut % (Auto) Lymph % (Auto) Jay % (Auto) Eos % (Auto) Baso % (Auto) Lymph # (Auto) Jay # (Auto) Eos # (Auto) Baso # (Auto) Absolute Neuts (auto) Neutrophils % (Manual) Lymphocytes % (Manual) Monocytes % (Manual) Platelet Evaluation Sodium 138 Potassium 3.7 Chloride 101 Carbon Dioxide 26 Anion Gap 15 BUN 15 Creatinine 0.6 L Est GFR ( Amer) > 60 Est GFR (Non-Af Amer) > 60 POC Glucose (mg/dL) 233 H 181 H Random Glucose 169 H Calcium 8.6 Phosphorus Magnesium Total Bilirubin AST ALT Alkaline Phosphatase Total Protein Albumin Globulin Albumin/Globulin Ratio Attending/Attestation - Attestation I have personally seen and examined this patient.: Yes I have fully participated in the care of the patient.: Yes I have reviewed all pertinent clinical information: Yes Notes (Text): 01/10/19 21:10 I have seen and examined the pt with the GI fellow. Suspect persistent n/v related to underlying dizziness and recommend neurological evaluation with brain imaging. Anti-emetics as needed.
--- NOTE | 2019-01-09 15:09 | CP.PCM.APN ---
Subjective - Date & Time of Evaluation Date of Evaluation: 01/09/19 Time of Evaluation: 11:15 - Subjective Subjective: Pt seen and examined at bedside pt with nausea/dizziness Review of Systems - Constitutional Constitutional: As Per HPI - Gastrointestinal Gastrointestinal: Nausea Objective - Vital Signs/Intake and Output Vital Signs (last 24 hours): Temp Pulse Resp BP Pulse Ox 98.7 F 96 H 20 156/100 H 96 01/09/19 14:43 01/09/19 14:43 01/09/19 14:43 01/09/19 14:43 01/09/19 10:30 - Medications Medications: Current Medications Amlodipine Besylate (Norvasc) 10 mg PO DAILY [facility] Last Admin: 01/09/19 09:47 Dose: Not Given Aspirin (Aspirin Chewable) 81 mg PO DAILY [facility] Last Admin: 01/09/19 09:47 Dose: Not Given Atorvastatin Calcium (Lipitor) 10 mg PO QAM [facility] Last Admin: 01/09/19 09:47 Dose: Not Given Clonidine HCl (Catapres Tts1 0.1 Mg/24 Hr) 1 patch TD Q7D@1000 [facility] Last Admin: 01/09/19 13:16 Dose: 1 patch Clopidogrel Bisulfate (Plavix) 75 mg PO DAILY [facility] Last Admin: 01/09/19 09:47 Dose: Not Given Sodium Chloride (Sodium Chloride 0.45%) 1,000 mls @ 100 mls/hr IV .Q10H [facility] Stop: 01/09/19 20:14 Insulin Human Regular (Humulin R Low) 0 units SC ACHS [facility]; Protocol Last Admin: 01/09/19 13:18 Dose: Not Given Meclizine HCl (Antivert) 25 mg PO Q6H [facility] Last Admin: 01/09/19 13:39 Dose: Not Given Metoprolol Succinate (Toprol Xl) 100 mg PO BRK [facility] Metoprolol Tartrate (Lopressor) 5 mg IVP Q6 PRN PRN Reason: Systolic Blood Pressure Ondansetron HCl (Zofran Inj) 4 mg IVP Q4H PRN PRN Reason: Nausea/Vomiting Pantoprazole Sodium (Protonix Inj) 40 mg IVP BID [facility] - Labs Labs: 01/09/19 10:00 01/09/19 08:00 PT 11.4 SECONDS (9.4-12.5) 01/09/19 03:27 INR 1.03 01/09/19 03:27 APTT 36.4 Seconds (26.9-38.3) 01/09/19 03:27 - Head Exam Head Exam: NORMOCEPHALIC - Respiratory Exam Respiratory Exam: NORMAL BREATHING PATTERN - Cardiovascular Exam Cardiovascular Exam: +S1, +S2 - GI/Abdominal Exam GI & Abdominal Exam: Soft, Normal Bowel Sounds - Neurological Exam Neurological Exam: Alert, Awake - Psychiatric Exam Psychiatric exam: Normal Mood - Skin Skin Exam: Dry, Intact Assessment and Plan - Assessment and Plan (Free Text) Plan: ITS Impressions Chest X-Ray 01/09/19 04:05 IMPRESSION: No active disease. Head CT 01/09/19 04:05 IMPRESSION: Age-appropriate age related neuro degenerative findings are identified as discussed above. Examination not dramatically changed compared prior brain MRI 07/18/2014. No definite acute findings as per standard CT criteria. Concordant preliminary report from Suha, 01/09/2019, 5:22 a.m.. A/P 83 yr old with pmh sig for afib, cad s/p stenting on asa and plavix, cva, uncontrolled htn, breast ca s/p lumpectomy, who presented to the ED with dizziness/ vertigo now admitted for additional workup. pt with vomiting coffee ground emesis this am with GI consultation. Pt pending workup for dizziness with pending MRi and Ct head/neck pending. will continue to follow. BPCI/TIC - BPCIA/TIC Educated pt/family on BPCIA/CIR/Med to Bed Programs: N/A Flyers given, including [facility] Beneficiary letter: N/A Pt/family verbalized understanding & agreed to program: N/A
[2019-01-09] MEDS: Metoprolol 1 mg/ml Inj IVP PRN (18:00)
--- NOTE | 2019-01-09 23:25 | CON ---
DATE: 01/09/2019 LOCATION: The patient is in room 267, bed 2. REASON FO CONSULTATION Atrial fibrillation, history of coronary artery disease, history of stent insertion in left anterior descending in 04/2018, hypertension, diabetes, and vomiting. HISTORY OF PRESENT ILLNESS: An 83-year-old female, known case of atrial fibrillation, coronary artery disease, had LAD stent in 04/2018 due to an abnormal stress test, admitted with a history that she started vomiting since yesterday evening and also started feeling dizzy at the same time. The patient is now lying flat in bed with closed eyes. She states if she opens her eyes, she gets dizzy, Denies any chest pain, shortness of breath, or palpitation. The patient vomited twice on the floor today and according to the nurses the color was dark brown to coffee-ground material. The patient denies any abdominal pain, denies any history of diarrhea or any abdominal pain. The patient in 04/2018, had a plain stent inserted because the patient was poorly complaint with medication and also had tendency to fall. The patient at home sometimes uses a cane to walk, sometimes she states she is able to walk at home without a cane. The patient's home medication does not show Eliquis, because she was put on Eliquis on the last admission and she was supposed to be taken off the Plavix after 4 weeks and then to continue aspirin and Eliquis, but on the home medication there is no Eliquis in the list of the medications. PAST MEDICAL HISTORY: Positive for atrial fibrillation, coronary artery disease, bare metal stent to LAD on 04/2018, history of CVA with minimal gradual right-sided weakness, hypertension, diabetes mellitus type 2, and obesity. PAST SURGICAL HISTORY: The patient has cholecystectomy, right breast lumpectomy for carcinoma. PERSONAL HISTORY: Denies smoking, denies drinking, denies any other illicit drugs. FAMILY HISTORY: Not significant. ALLERGIES: THE PATIENT DENIES ANY ALLERGIES. HOME MEDICATIONS: The patient supposed to have Plavix 75 mg daily, amlodipine 10 mg daily, metformin one tablet p.o. daily, metoprolol succinate, Toprol-XL 100 mg p.o. daily, simvastatin 20 mg p.o. daily, and meclizine 25 mg p.o. every 6 hours. REVIEW OF SYSTEMS: All the systems were reviewed, positives mentioned in history, others were negative. PHYSICAL EXAMINATION VITAL SIGNS: Blood pressure 170/90, respirations 18, pulse at present is around 80 per minute is irregular due to atrial fibrillation. The patient is afebrile. HEENT: Head is normocephalic. The patient does not open eyes. LUNGS: Clear. CARDIOVASCULAR: S1 and S2. ABDOMEN: Soft. No tenderness. Bowel sounds normal. EXTREMITIES: No clubbing. No cyanosis. LABORATORY DATA: WBC 11.8, hemoglobin 16.1, hematocrit 46.9, platelet 192. Sodium 142, potassium 4.3, BUN 11, creatinine 0.7, calcium and bilirubin is normal. AST is 23, total protein and albumin is normal. Troponin 0.02. Free T4 1.13, which is normal. TSH 1.91, which is normal. Chest x-ray is clear. EKG; atrial fibrillation moderate rate. DIAGNOSES: Vomiting with vertigo. Her vomiting were dark brown and according to the nurse also looked like coffee-ground, so not sure whether there is elemental of gastrointestinal bleeding along with the vomiting. The patient also having dizziness, coronary artery disease, history of bare metal stent insertion in 04/2018, history of cerebrovascular accident with minimal right-sided deficit, hypertension, diabetes mellitus, and obesity. Possibility Vomiting related to Vertigo. PLAN: The patient cannot take anything p.o. medications, so we will use Lopressor, Cardizem p.r.n. IV if her heart rate goes up. We will put a TTS patch for high blood pressure to the chest and we will continue to monitor closely and we will discuss with GI whether the patient can be on heparin because question of Coffee Ground Material Vomiting Can also use hydralazine IV p.r.n. for blood pressure. We will follow with you. Jie Rollins MD RIANNA
[2019-01-10 07:08] LABS: BASO # 0.01 K/mm3 (0.0-2.0); BASO % 0.1 % (0.0-3.0); HEMOGLOBIN 14.8 g/dL (12.0-16.0); LYMPH % 7.3 % (22.0-35.0); MEAN CELL VOLUME 91.3 fl (80.0-105.0); MEAN CORPUSCULAR HEMOGLOBIN 30.5 pg (25.0-35.0); MEAN CORPUSCULAR HGB CONC 33.4 g/dl (31.0-37.0); MEAN PLATELET VOLUME 10.3 fl (7.0-11.0); MONO # 0.3 (0.1-0.6); MONO % 2.2 % (1.0-6.0); PLATELET COUNT 184 10^3/uL (120.0-450.0); RBC 4.85 10^6/uL (3.5-6.1); RED CELL DISTRIBUTION WIDTH 13.8 % (11.5-14.5); WHITE BLOOD COUNT 13.1 10^3/uL (4.5-11.0)
[2019-01-10 07:27] LABS: ALB/GLOB RATIO 1.2 (1.1-1.8); ALBUMIN 4.1 g/dL (3.0-4.8); ALT/SGPT 11 U/L (7-56); AST/SGOT 26 U/L (14-36); BLOOD UREA NITROGEN 15 mg/dL (7-21); CALCIUM 8.7 mg/dL (8.4-10.5); GFR NON-AFRICAN AMERICAN > 60
[2019-01-10 07:55] LABS: LYMPHOCYTE 9 % (22.0-35.0); NEUTROPHIL 91 % (50.0-70.0); PLATELET ESTIMATE NORMAL (NORMAL)
[2019-01-10] MEDS ORDERED: Sodium Chloride 0.9% 1,000 ML IV SCH (09:00)
[2019-01-10] MEDS ORDERED: Potassium Chloride 20 mEq ER Tab PO STA (09:08)
[2019-01-10] MEDS: Insulin Reg-LOW-Coverage SC SCH ×4 (09:23→22:00)
[2019-01-10] MEDS ORDERED: Sodium Chloride 0.45% 1,000 ML IV SCH ×2 (09:45→10:53)
--- NOTE | 2019-01-10 09:54 | CP.PCM.PN ---
Subjective - Date & Time of Evaluation Date of Evaluation: 01/10/19 Time of Evaluation: 06:35 - Subjective Subjective: Awake, alert no distress Reason for consultation and follow up: Cardiac evaluation and follow up history of atrial fibrillation, coronary artery disease with stents, admitted due to dizziness Seen and examined by me and Dr. Hilton Objective - Vital Signs/Intake and Output Vital Signs (last 24 hours): Temp Pulse Resp BP Pulse Ox 99 F 102 H 16 192/73 H 99 01/10/19 09:30 01/10/19 09:30 01/10/19 09:30 01/10/19 09:30 01/10/19 09:30 Intake and Output: 01/10/19 01/10/19 06:59 18:59 Intake Total 0 Output Total 350 Balance -350 - Medications Medications: Current Medications Amlodipine Besylate (Norvasc) 10 mg PO DAILY [facility] Last Admin: 01/09/19 09:47 Dose: Not Given Aspirin (Aspirin Chewable) 81 mg PO DAILY [facility] Last Admin: 01/09/19 09:47 Dose: Not Given Atorvastatin Calcium (Lipitor) 10 mg PO QAM [facility] Last Admin: 01/09/19 09:47 Dose: Not Given Clopidogrel Bisulfate (Plavix) 75 mg PO DAILY [facility] Last Admin: 01/09/19 09:47 Dose: Not Given Sodium Chloride (Sodium Chloride 0.45%) 1,000 mls @ 60 mls/hr IV .[id number] [facility] Insulin Human Regular (Humulin R Low) 0 units SC ACHS [facility]; Protocol Last Admin: 01/10/19 09:23 Dose: Not Given Meclizine HCl (Antivert) 25 mg PO Q6H [facility] Last Admin: 01/10/19 06:00 Dose: Not Given Metoprolol Succinate (Toprol Xl) 100 mg PO BRK [facility] Metoprolol Tartrate (Lopressor) 5 mg IVP Q6 PRN PRN Reason: Systolic Blood Pressure Last Admin: 01/09/19 18:00 Dose: 5 mg Ondansetron HCl (Zofran Inj) 4 mg IVP Q4H PRN PRN Reason: Nausea/Vomiting Last Admin: 01/10/19 04:11 Dose: 4 mg Pantoprazole Sodium (Protonix Inj) 40 mg IVP BID [facility] Last Admin: 01/09/19 18:01 Dose: 40 mg - Labs Labs: 01/10/19 06:30 01/10/19 06:30 PT 11.4 SECONDS (9.4-12.5) 01/09/19 03:27 INR 1.03 01/09/19 03:27 APTT 36.4 Seconds (26.9-38.3) 01/09/19 03:27 - Constitutional Appears: Non-toxic, No Acute Distress - Head Exam Head Exam: NORMAL INSPECTION, NORMOCEPHALIC - Eye Exam Eye Exam: Normal appearance Pupil Exam: NORMAL ACCOMODATION - ENT Exam ENT Exam: Mucous Membranes Moist, Normal Exam - Respiratory Exam Respiratory Exam: Decreased Breath Sounds, Clear to Ausculation Bilateral, NORMAL BREATHING PATTERN - Cardiovascular Exam Cardiovascular Exam: REGULAR RHYTHM, +S1, +S2 - GI/Abdominal Exam GI & Abdominal Exam: Soft, Normal Bowel Sounds - Extremities Exam Extremities Exam: Full ROM, Normal Capillary Refill - Neurological Exam Neurological Exam: Alert, Awake, Oriented x3 - Psychiatric Exam Psychiatric exam: Normal Affect, Normal Mood - Skin Skin Exam: Dry, Normal Color, Warm Assessment and Plan - Assessment and Plan (Free Text) Assessment: An 83 year old female who came in to the ER due to dizziness and lightheadedness x 2 days. History of atrial fibrillation, coronary artery disease post bare metal stent to LAD 04/2018, on Plavix and ASA , CVA, uncontrolled hypertension, diabetes,cholecystectomy breast cancer post right lumpectomy. Non compliant with medications. Had coffee ground vomitus. Troponin negative, EKG showed atrial fibrillation. Orthostatic vital signs to rule out hypotension. GI and Neuro on consult. Started on liquid diet. Will hold Plavix and Aspirin. For echo to evaluate LV function. Admitted for vertigo with vomiting. Plan: For Echo today No distress, denies vomiting On liquid diet Heart rate controlled Orthostatic vital signs Blood pressure uncontrolled, will readjust medications after morning meds given On Norvasc 10 mg daily, Lipitor 10 mg daily, antivert 25 ,g every 6 hours Toprol 100 mg daily, PRN Zofran Continue current treatment Continue current medications Hold Plavix and Aspirin TSH, Hgb A1c, lipid profile Further recommendations during hospital course GI and Neuro on consult Magnesium and potassium replenished Will follow up Plan and treatment discussed with Dr. Hilton
[2019-01-10] MEDS ORDERED: Magnesium Sulfate 2 gm/50 ml 2 GM/50 ML BAG IVPB ONE (10:13)
[2019-01-10] MEDS: Metoprolol 1 mg/ml Inj IVP PRN (10:20)
--- NOTE | 2019-01-10 10:45 | CP.PCM.PCO ---
Physician Communication Note - Physician Communication Note Physician Communication Note: pt went for mri then has ct scan, will follow results
--- NOTE | 2019-01-10 10:59 | CP.PCM.PN ---
<Alfredo Johansen - Last Filed: 01/10/19 12:19> Subjective - Date & Time of Evaluation Date of Evaluation: 01/10/19 Time of Evaluation: 07:10 - Subjective Subjective: Alfredo Johansen DO PGY1 Hospitalist Progress Note for Dr Gonzales Patient seen and examined at bedside. She's still somnolent, lethargic, vomited once last nigh that was greenish in color, sill feels nausea with mild epigastric pain, dizziness. She denies CP, palpitations, new muscle weakness Objective - Vital Signs/Intake and Output Vital Signs (last 24 hours): Temp Pulse Resp BP Pulse Ox 99 F 102 H 16 197/73 H 99 01/10/19 09:30 01/10/19 10:20 01/10/19 09:30 01/10/19 10:20 01/10/19 09:30 Intake and Output: 01/10/19 01/10/19 06:59 18:59 Intake Total 0 Output Total 350 Balance -350 - Medications Medications: Current Medications Amlodipine Besylate (Norvasc) 10 mg PO DAILY [facility] Last Admin: 01/10/19 10:20 Dose: Not Given Atorvastatin Calcium (Lipitor) 10 mg PO QAM [facility] Last Admin: 01/10/19 10:21 Dose: Not Given Magnesium Sulfate (Magnesium Sulfate 2 Gm/50 Ml Water) 2 gm in 50 mls @ 50 mls/hr IVPB ONCE ONE Stop: 01/10/19 11:12 Potassium Chloride (Potassium Chloride 10 Meq/100 Ml) 10 meq in 100 mls @ 100 mls/hr IVPB Q2H [facility] Stop: 01/10/19 13:59 Sodium Chloride (Sodium Chloride 0.45%) 1,000 mls @ 75 mls/hr IV .[id number] [facility] Insulin Human Regular (Humulin R Low) 0 units SC ACHS [facility]; Protocol Last Admin: 01/10/19 09:23 Dose: Not Given Meclizine HCl (Antivert) 25 mg PO Q6H [facility] Last Admin: 01/10/19 06:00 Dose: Not Given Metoprolol Succinate (Toprol Xl) 100 mg PO BRK [facility] Last Admin: 01/10/19 10:21 Dose: Not Given Metoprolol Tartrate (Lopressor) 5 mg IVP Q6 PRN PRN Reason: Systolic Blood Pressure Last Admin: 01/10/19 10:20 Dose: 5 mg Ondansetron HCl (Zofran Inj) 4 mg IVP Q4H PRN PRN Reason: Nausea/Vomiting Last Admin: 01/10/19 10:19 Dose: 4 mg Pantoprazole Sodium (Protonix Inj) 40 mg IVP BID [facility] Last Admin: 01/10/19 10:19 Dose: 40 mg Potassium Chloride (K-Dur 20 Meq Er Tab) 40 meq PO ONCE ONE Stop: 01/10/19 13:01 - Labs Labs: 01/10/19 06:30 01/10/19 06:30 PT 11.4 SECONDS (9.4-12.5) 01/09/19 03:27 INR 1.03 01/09/19 03:27 APTT 36.4 Seconds (26.9-38.3) 01/09/19 03:27 - Constitutional Appears: No Acute Distress, Other (lethargic, somnolent) - Head Exam Head Exam: ATRAUMATIC, NORMAL INSPECTION, NORMOCEPHALIC - Eye Exam Eye Exam: EOMI, Normal appearance, PERRL Pupil Exam: NORMAL ACCOMODATION, PERRL - ENT Exam ENT Exam: Mucous Membranes Moist, Normal Exam - Neck Exam Neck Exam: Full ROM, Normal Inspection. absent: Lymphadenopathy - Respiratory Exam Respiratory Exam: Clear to Ausculation Bilateral, NORMAL BREATHING PATTERN - Cardiovascular Exam Cardiovascular Exam: REGULAR RHYTHM, +S1, +S2. absent: RRR, Rubs, Murmur - GI/Abdominal Exam GI & Abdominal Exam: Soft, Tenderness (mild epigastric ), Normal Bowel Sounds. absent: Mass, Pulsatile Mass, Rebound - Extremities Exam Extremities Exam: Full ROM, Normal Capillary Refill, Normal Inspection. 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 Patient admitted for workup Plan: Dizziness: -likely due central causes vertigo/inner ear etiology -h/o vertigo. on meclizine at home, questionable compliance with med -CT head: no ICH -brain MRI pending -CTA head/neck read pending -PT eval/treat -ENT outpatient recommended for possible inner ear pathology. Discussed with family today -fall precautions -orthostatic vitals Nausea/vomiting: -per GI note, emesis does not appear bloody in nature but given frequent retching and emesis, possibility for M-W tear exists. r/o BPPV vs other central causes -zofran prn -protonix IVP daily -NS@ 75 cc/hr -hypokalemia, hpomagnesemia in the setting of vomiting, lytes repleted -GI consulted Dr [place] Afib: -cardezem prn HTN: -BP 180s/130s -lopressor, hydralazine IV prn as per cardiology -hold oral ant-HTN meds for now. patient is vomiting -cardiology on board CAD s/p PCI - hold ASA/Plavix -trop negative x2 HLD: -hold lipitor , given N/V h/o CVA with R residual deficit: -no new focal deficits noted -hold asa DM2: -accucheck -ISS-low -hold home metformin -A1c PPX: DVT:SCD GI: protonix IV Case reviewed and plan discussed with attending physician, Dr Christian Johansen, PGY1 <Rebeca Gonzales R - Last Filed: 01/11/19 19:02> Objective - Vital Signs/Intake and Output Vital Signs (last 24 hours): Temp Pulse Resp BP Pulse Ox 97.6 F 81 21 199/95 H 87 L 01/11/19 12:00 01/11/19 16:40 01/11/19 04:48 01/11/19 16:30 01/11/19 05:00 - Medications Medications: Current Medications Amlodipine Besylate (Norvasc) 10 mg PO DAILY [facility] Last Admin: 01/10/19 10:20 Dose: Not Given Aspirin (Aspirin Supp) 600 mg RC DAILY [facility] Last Admin: 01/11/19 13:59 Dose: 600 mg Atorvastatin Calcium (Lipitor) 10 mg PO QAM [facility] Last Admin: 01/10/19 10:21 Dose: Not Given Dexamethasone (Decadron Inj) 4 mg IVP Q6 [facility] Last Admin: 01/11/19 12:18 Dose: 4 mg Sodium Chloride (Sodium Chloride 0.45%) 1,000 mls @ 50 mls/hr IV .Q20H [facility] Last Admin: 01/11/19 12:38 Dose: 50 mls/hr Levetiracetam (Keppra 500mg Ivpb) 500 mg in 100 mls @ 200 mls/hr IVPB Q12 [facility] Last Admin: 01/11/19 10:00 Dose: 200 mls/hr Propofol (Diprivan) 1,000 mg in 100 mls @ 2.286 mls/hr IV .Q24H [facility]; Protocol PRN Reason: TITRATE PER MD ORDER Last Admin: 01/11/19 05:00 Dose: 5 mcg/kg/min, 2.286 mls/hr Mannitol 25 gm/ IV SUPPLIES 100 mls @ 100 mls/hr IV Q6H [facility] Last Admin: 01/11/19 14:00 Dose: 100 mls/hr Insulin Human Regular (Humulin R Low) 0 units SC ACHS [facility]; Protocol Last Admin: 01/11/19 12:41 Dose: 2 units Meclizine HCl (Antivert) 25 mg PO Q6H [facility] Last Admin: 01/10/19 15:22 Dose: Not Given Metoprolol Succinate (Toprol Xl) 100 mg PO BRK [facility] Last Admin: 01/10/19 10:21 Dose: Not Given Ondansetron HCl (Zofran Inj) 4 mg IVP Q4H PRN PRN Reason: Nausea/Vomiting Last Admin: 01/10/19 10:19 Dose: 4 mg Pantoprazole Sodium (Protonix Inj) 40 mg IVP DAILY [facility] Last Admin: 01/11/19 12:26 Dose: 40 mg - Labs Labs: 01/11/19 05:30 01/11/19 05:30 PT 12.8 SECONDS (9.4-12.5) H 01/11/19 08:15 INR 1.13 01/11/19 08:15 APTT 32.8 Seconds (26.9-38.3) 01/11/19 08:15 Attending/Attestation - Attestation I have personally seen and examined this patient.: Yes I have fully participated in the care of the patient.: Yes I have reviewed all pertinent clinical information, including history, physical exam and plan: Yes Notes (Text): Patient seen and examined by me with resident at approximately 9:05AM on 01/10/19. Case including HPI, physical exam, and assessment and plan discussed with resident. Agree with above with following additions/corrections. Patient is an 83-year-old female with past medical history significant for atrial fibrillation, coronary artery disease status post bare metal stent placement, CVA with mild right-sided weakness, hypertension, hyperlipidemia, type 2 diabetes, right breast cancer status post lumpectomy, and dizziness to presented to the emergency room with complaints of dizziness, nausea, and vomiting. Patient is lethargic but arousable. States she is tired. Patient opens eyes a little. Feels nauseous but has not thrown up today. Family at bedside. Per daughter, patient has had vertigo in the past, but it has not been this bad. Unable to obtain any other review of systems from patient. Patient is afebrile. Physical exam: General: Lethargic but arousable. HEENT: Patient is not opening eyes, unable to evaulate. Mucous membranes appear dry. Cardiovascular: Irregularly irregular rhythm. No murmus, rubs, or gallops appreciated Pulmonary: Normal respiratory effort. No rhonci, rales, or wheezing appreciated. Auscultated anteriorly. Gastrointestinal: Soft, nondistended. Nontender. Positive bowel sounds all 4 quadrants. No guarding. Musculoskeletal: Moving all extremities. No calf tenderness. No edema appreicated. Central nervous system: Lethargic but arousable. Following some commands. Dermatologic: Skin warm and dry. Assessment and plan: Patient is an 83-year-old female with past medical history significant for atrial fibrillation, coronary artery disease status post bare metal stent placement, CVA with mild right-sided weakness, hypertension, hyperlipidemia, type 2 diabetes, right breast cancer status post lumpectomy, and dizziness to presented to the emergency room with complaints of dizziness, nausea, and vomiting. 1. Dizziness with persistent nausea and vomiting. Neuro consulted, follow up recommendations. Head CT per radiologist showed age appropriate-related neuro- degenerative findings. Head and neck CTA per radiologist showed calcified plaque in both carotid bifurcations with no significant stenosis, unremarkable angiography of the brain. Pending MRI brain. Continue with NPO. Continue Zofran as needed 2. Coffee ground emesis. Aspirin and Plavix held for now. GI recommendations appreciated. Continue Protonix. May have been secondary to frequent retching and emesis. He did not H&H. 3. Atrial fibrillation. She was not taking Eliquis at home as prescribed previously. Confirmed with patient's pharmacy. Cardiology recommendations appreciated. Continue with IV medications for now. Pending 2-D echo. On clonidine patch 4. Uncontrolled hypertension. Continue blood pressure medications as per cardiology. On clonidine patch 5. History of CVA with right-sided weakness. Aspirin on hold for now secondary to coffee-ground emesis. Still held as patient NPO 6. CAD s/p stent. ASA and Plavix held for now secondary to coffee ground emesis. Cardiology recommendations appreciated. 2D echo pending. 7. DM2. Continue with insulins sliding scale. Continue to monitor accuchecks. Case was discussed in detail with the patient's family at bedside regarding current diagnosis, study results, and treatment plan. All questions answered. Addendum. Notified at 2:28PM of MRI results. Neurosurgery consulted. Patient transferred to ICU. Case discussed with neurologist and cognos report developer. Also discussed with patient's daughter at bedside.
[2019-01-10] MEDS ORDERED: Iohexol 350 MG/100 ML VIAL ONE (11:35)
--- NOTE | 2019-01-10 12:55 | CT ---
Date of service: 01/09/2019 PROCEDURE: CT Angiography of the neck with contrast HISTORY: dizziness COMPARISON: None. TECHNIQUE: Contiguous axial images of the neck were obtained from the level of the skull-base to the superior mediastinum in the arteriographic phase of enhancement. Coronal and sagittal reformats or also generated. IV contrast dose: 100 cc of Omni 350 Radiation dose: Total exam DLP = 586.53 mGy-cm. This CT exam was performed using one or more of the following dose reduction techniques: Automated exposure control, adjustment of the mA and/or kV according to patient size, and/or use of iterative reconstruction technique. FINDINGS: RIGHT CAROTID ARTERIES: Common Carotid Artery: Calcified plaque without stenosis Carotid Bifurcation: Normal. Internal Carotid Artery:Normal. External Carotid Artery (proximal branches): Normal. LEFT CAROTID ARTERIES: Common Carotid Artery: Normal. Carotid Bifurcation: Calcified plaque without stenosis Internal Carotid Artery:Normal. External Carotid Artery (proximal branches): Normal. VERTEBRAL ARTERIES: Right Vertebral Artery: Hypoplastic Left Vertebral Artery: Normal. OTHER FINDINGS: no aortic atherosclerotic calcification or mural plaque present. IMPRESSION: Calcified plaque in both carotid bifurcations with no significant stenosis CT Angiography of the Brain. HISTORY: dizziness COMPARISON: None available. TECHNIQUE: CT angiography of the intracranial arteries was performed. Coronal and sagittal maximum intensity projection reformated images were generated. Radiation dose: Total exam DLP = 586.53 mGy-cm. This CT exam was performed using one or more of the following dose reduction techniques: Automated exposure control, adjustment of the mA and/or kV according to patient size, and/or use of iterative reconstruction technique. FINDINGS: INTERNAL CEREBRAL ARTERIES: Unremarkable. The skull base, petrous, cavernous and supraclinoid segments are bilaterally widely patent. ANTERIOR CEREBRAL ARTERIES: Unremarkable. A1 and A2 segments are widely patent. Smaller distal branches unremarkable, as visualized. MIDDLE CEREBRAL ARTERIES: Unremarkable. M1 and M2 segments are widely patent. Perisylvian branches grossly symmetric. POSTERIOR CIRCULATION: Basilar Artery: Unremarkable. Distal Vertebral Arteries: Unremarkable. Posterior Cerebral Arteries: Unremarkable. Posterior Inferior Cerebellar Arteries: Unremarkable. ANEURYSM/ VASCULAR MALFORMATIONS: None. OTHER FINDINGS: None. IMPRESSION: Unremarkable CT Angiography of the Brain.
[2019-01-10] MEDS ORDERED: Potassium Chloride 20 mEq ER Tab PO ONE (13:00)
--- NOTE | 2019-01-10 13:03 | MRI ---
Date of service: 01/10/2019 PROCEDURE: MRI BRAIN WITHOUT CONTRAST HISTORY: dizziness COMPARISON: CT 01/09/2019 TECHNIQUE: Multiplanar, multisequence MR images of the brain were obtained without intravenous contrast enhancement. FINDINGS: HEMORRHAGE: None DWI: There is an acute infarct in the inferior left cerebellar hemisphere in the distribution of the posterior inferior cerebellar artery. This also involves the left cerebellar tonsil. There is associated edema and mass effect with swelling of the left cerebellar hemisphere. There is no evidence of herniation. BRAIN PARENCHYMA: There is a chronic lacunar infarct in the left side of the nuris. Chronic microvascular changes are seen in the periventricular white matter. VENTRICLES: Unremarkable. No hydrocephalus. CRANIUM: Unremarkable. ORBITS: Grossly unremarkable. PARANASAL SINUSES/MASTOIDS: Clear VASCULAR SYSTEM: Skull base flow voids intact. OTHER FINDINGS: None. IMPRESSION: There is an acute infarct in the inferior left cerebellar hemisphere in the distribution of the posterior inferior cerebellar artery. This also involves the left cerebellar tonsil. There is associated edema and mass effect with swelling of the left cerebellar hemisphere. There is no evidence of herniation.
--- NOTE | 2019-01-10 14:38 | CP.PCM.PN ---
<Alphonse Tony - Last Filed: 01/10/19 14:33> Subjective - Date & Time of Evaluation Date of Evaluation: 01/10/19 Time of Evaluation: 08:10 - Subjective Subjective: PGY6 GI Fellow Progress Note Patient seen and examined bedside this morning. The patient has just returned from MRI brain. She states that she is feeling less dizzy today and thus nausea/vomiting improved somewhat. Did have episodes of retching last night. Admits to headache presently. Still feels dizzy when opening eyes. 12 system ROS performed and negative except where stated Objective - Vital Signs/Intake and Output Vital Signs (last 24 hours): Temp Pulse Resp BP Pulse Ox 99 F 102 H 16 197/73 H 99 01/10/19 09:30 01/10/19 10:20 01/10/19 09:30 01/10/19 10:20 01/10/19 09:30 Intake and Output: 01/10/19 01/10/19 06:59 18:59 Intake Total 0 Output Total 350 Balance -350 - Medications Medications: Current Medications Amlodipine Besylate (Norvasc) 10 mg PO DAILY [facility] Last Admin: 01/10/19 10:20 Dose: Not Given Aspirin (Aspirin Supp) 600 mg RC DAILY [facility] Atorvastatin Calcium (Lipitor) 10 mg PO QAM [facility] Last Admin: 01/10/19 10:21 Dose: Not Given Sodium Chloride (Sodium Chloride 0.45%) 1,000 mls @ 75 mls/hr IV .[id number] [facility] Last Admin: 01/10/19 14:14 Dose: 75 mls/hr Insulin Human Regular (Humulin R Low) 0 units SC [facility]; Protocol Last Admin: 01/10/19 14:08 Dose: Not Given Meclizine HCl (Antivert) 25 mg PO Q6H [facility] Last Admin: 01/10/19 14:12 Dose: 25 mg Metoprolol Succinate (Toprol Xl) 100 mg PO BRK [facility] Last Admin: 01/10/19 10:21 Dose: Not Given Metoprolol Tartrate (Lopressor) 5 mg IVP Q6 PRN PRN Reason: Systolic Blood Pressure Last Admin: 01/10/19 10:20 Dose: 5 mg Ondansetron HCl (Zofran Inj) 4 mg IVP Q4H PRN PRN Reason: Nausea/Vomiting Last Admin: 01/10/19 10:19 Dose: 4 mg Pantoprazole Sodium (Protonix Inj) 40 mg IVP BID [facility] Last Admin: 01/10/19 10:19 Dose: 40 mg - Labs Labs: 01/10/19 06:30 01/10/19 06:30 PT 11.4 SECONDS (9.4-12.5) 01/09/19 03:27 INR 1.03 01/09/19 03:27 APTT 36.4 Seconds (26.9-38.3) 01/09/19 03:27 - Constitutional Appears: No Acute Distress, Other (uncomfortable) - Eye Exam Additional comments: pt will not open eyes long enough for full examination - no evidence of nystagmus; PERRL - ENT Exam ENT Exam: Mucous Membranes Moist - Respiratory Exam Respiratory Exam: Clear to Ausculation Bilateral. absent: Rales, Rhonchi, Wheezes - Cardiovascular Exam Cardiovascular Exam: Irregular Rhythm, +S1, +S2 - GI/Abdominal Exam GI & Abdominal Exam: Soft, Normal Bowel Sounds. absent: Distended, Firm, Guarding, Rigid, Tenderness, Organomegaly - Extremities Exam Extremities Exam: Normal Inspection. absent: Pedal Edema - Neurological Exam Neurological Exam: Alert, Awake, Oriented x3 - Psychiatric Exam Psychiatric exam: Normal Affect, Normal Mood - Skin Skin Exam: Dry, Warm Assessment and Plan - Assessment and Plan (Free Text) Assessment: Patient is an 83yo [place] female with past medical history significant for atrial fibrillation, CAD s/p PCI on ASA/plavix, CVA, uncontrolled HTN, DM, breast cancer s/p right lumpectomy who presented to the ED with dizziness -Vertigo - R/O BPPV vs other central causes -Nausea and vomiting, likely secondary to above -Hypertensive urgency -CAD s/p PCI on ASA/Plavix -Atrial fibrillation -DM -Medical nonadherence Plan: -Ongoing treatment for vertigo - as this improves, nausea/vomiting will likely improve -No present concern for GI bleeding - patient is OK to start anticoagulation for atrial fibrillation -Cardiology consultation noted -MRI brain pending -Neurology eval pending -Zofran PRN, can also use Reglan sparingly as tolerated -Importance of medical compliance given numerous comorbid conditions stressed to patient -No further recommendations at this time; plan per primary, neuro, cardio teams *Of note, patient's admits to giving patient several OTC herbal supplements - abelino encourage cessation but as he is not clear on what these are it is difficulty to determine if they are contributing to current issues <Rukhsana Paniagua - Last Filed: 01/10/19 21:16> Objective - Vital Signs/Intake and Output Vital Signs (last 24 hours): Temp Pulse Resp BP Pulse Ox 98.8 F 87 22 198/102 H 96 01/10/19 18:00 01/10/19 18:20 01/10/19 18:20 01/10/19 18:00 01/10/19 18:20 - Medications Medications: Current Medications Amlodipine Besylate (Norvasc) 10 mg PO DAILY [facility] Last Admin: 01/10/19 10:20 Dose: Not Given Aspirin (Aspirin Supp) 600 mg RC DAILY [facility] Last Admin: 01/10/19 14:40 Dose: 600 mg Atorvastatin Calcium (Lipitor) 10 mg PO QAM [facility] Last Admin: 01/10/19 10:21 Dose: Not Given Clonidine HCl (Catapres-Tts3 0.3 Mg/24 Hr) 1 patch TD Q7D@1000 [facility] Last Admin: 01/10/19 16:24 Dose: Not Given Hydralazine HCl (Apresoline) 10 mg IVP Q6H PRN PRN Reason: For SBP >160 Sodium Chloride (Sodium Chloride 0.45%) 1,000 mls @ 50 mls/hr IV .Q20H [facility] Last Admin: 01/10/19 16:25 Dose: Not Given Mannitol (Mannitol) 100 mls @ 100 mls/hr IV Q8H [facility] Last Admin: 01/10/19 16:27 Dose: 100 mls/hr Insulin Human Regular (Humulin R Low) 0 units SC [facility]; Protocol Last Admin: 01/10/19 17:27 Dose: Not Given Meclizine HCl (Antivert) 25 mg PO Q6H [facility] Last Admin: 01/10/19 15:22 Dose: Not Given Metoprolol Succinate (Toprol Xl) 100 mg PO BRK [facility] Last Admin: 01/10/19 10:21 Dose: Not Given Metoprolol Tartrate (Lopressor) 5 mg IVP Q6 PRN PRN Reason: Systolic Blood Pressure Last Admin: 01/10/19 10:20 Dose: 5 mg Ondansetron HCl (Zofran Inj) 4 mg IVP Q4H PRN PRN Reason: Nausea/Vomiting Last Admin: 01/10/19 10:19 Dose: 4 mg Pantoprazole Sodium (Protonix Inj) 40 mg IVP BID [facility] Last Admin: 01/10/19 17:29 Dose: 40 mg - Labs Labs: 01/10/19 06:30 01/10/19 19:15 PT 11.4 SECONDS (9.4-12.5) 01/09/19 03:27 INR 1.03 01/09/19 03:27 APTT 36.4 Seconds (26.9-38.3) 01/09/19 03:27 Attending/Attestation - Attestation I have personally seen and examined this patient.: Yes I have fully participated in the care of the patient.: Yes I have reviewed all pertinent clinical information, including history, physical exam and plan: Yes Notes (Text): 01/10/19 21:15 I have seen and examined the pt with the GI fellow and agree with the assessment/plan.
--- NOTE | 2019-01-10 14:38 | CP.PCM.CON ---
History of Present Illness - History of Present Illness History of Present Illness: Neurology consult dictated. 83 yr old woman with dizziness, and nausea and vomiting, that started several days ago, and now has MRI brain that shows left cerebellar hemisphere acute stroke that most likely started yesterday afternoon. Initial CT scan did not show a stroke. Plan: 1. Transfer to ICU 2. Neurosurgery for cerebellar stroke management 3. Start aspirin 3a. Mannitol IV, HOB elevation. 4. ECHO 5. CTA head and neck has been completed. 6. PT ST OT 7. Lipid profile. Thank you Dr. Ernst Neurology Past Patient History - Infectious Disease Hx of Infectious Diseases: None - Past Social History Smoking Status: Never Smoked - CARDIAC Hx Cardiac Disorders: Yes (A-FIB) Hx Cardia Arrhythmia: Yes Hx Congestive Heart Failure: Yes Hx Hypertension: Yes - PULMONARY Hx Respiratory Disorders: No - NEUROLOGICAL HX Cerebrovascular Accident: Yes (10 years ago) - HEENT Hx HEENT Problems: No - RENAL Hx Chronic Kidney Disease: No - ENDOCRINE/METABOLIC Hx Diabetes Mellitus Type 2: Yes - HEMATOLOGICAL/ONCOLOGICAL Hx Blood Disorders: No - INTEGUMENTARY Hx Dermatological Problems: No Other/Comment: dry skin on shins; bl heels black eschar - MUSCULOSKELETAL/RHEUMATOLOGICAL Hx Musculoskeletal Disorders: No Hx Falls: No Hx Unsteady Gait: Yes (walks with cane) - GASTROINTESTINAL Hx Gastrointestinal Disorders: Yes Other/Comment: cholectomy - GENITOURINARY/GYNECOLOGICAL Hx Genitourinary Disorders: No - PSYCHIATRIC Hx Psychophysiologic Disorder: No - SURGICAL HISTORY Hx Surgeries: Yes Hx Cardiac Catheterization: Yes (STENT) Hx Coronary Stent: Yes Hx Orthopedic Surgery: Yes (knee) Other/Comment: R breast lumpectomy - ANESTHESIA Hx Anesthesia Reactions: (UNKNOWN- COULD NOT REMEMBER) Hx Malignant Hyperthermia: No Meds Allergies/Adverse Reactions: Allergies Allergy/AdvReac Type Severity Reaction Status Date / Time No Known Allergies Allergy Verified 01/09/19 06:01 - Medications Medications: Current Medications Amlodipine Besylate (Norvasc) 10 mg PO DAILY [facility] Last Admin: 01/10/19 10:20 Dose: Not Given Aspirin (Aspirin Supp) 600 mg RC DAILY [facility] Atorvastatin Calcium (Lipitor) 10 mg PO QAM [facility] Last Admin: 01/10/19 10:21 Dose: Not Given Sodium Chloride (Sodium Chloride 0.45%) 1,000 mls @ 75 mls/hr IV .[id number] [facility] Last Admin: 01/10/19 14:14 Dose: 75 mls/hr Insulin Human Regular (Humulin R Low) 0 units SC ACHS [facility]; Protocol Last Admin: 01/10/19 14:08 Dose: Not Given Meclizine HCl (Antivert) 25 mg PO Q6H [facility] Last Admin: 01/10/19 14:12 Dose: 25 mg Metoprolol Succinate (Toprol Xl) 100 mg PO BRK [facility] Last Admin: 01/10/19 10:21 Dose: Not Given Metoprolol Tartrate (Lopressor) 5 mg IVP Q6 PRN PRN Reason: Systolic Blood Pressure Last Admin: 01/10/19 10:20 Dose: 5 mg Ondansetron HCl (Zofran Inj) 4 mg IVP Q4H PRN PRN Reason: Nausea/Vomiting Last Admin: 01/10/19 10:19 Dose: 4 mg Pantoprazole Sodium (Protonix Inj) 40 mg IVP BID [facility] Last Admin: 01/10/19 10:19 Dose: 40 mg Results - Vital Signs Recent Vital Signs: Last Vital Signs Temp 99 F 01/10/19 09:30 Pulse 102 H 01/10/19 10:20 Resp 16 01/10/19 09:30 BP 197/73 H 01/10/19 10:20 Pulse Ox 99 01/10/19 09:30 - Labs Result Diagrams: 01/10/19 06:30 01/10/19 06:30 Labs: Laboratory Results - last 24 hr 01/09/19 01/09/19 01/09/19 16:16 17:45 17:45 WBC RBC Hgb 14.8 Hct MCV MCH MCHC RDW Plt Count MPV Neut % (Auto) Lymph % (Auto) Cannon % (Auto) Eos % (Auto) Baso % (Auto) Lymph # (Auto) Cannon # (Auto) Eos # (Auto) Baso # (Auto) Absolute Neuts (auto) Neutrophils % (Manual) Lymphocytes % (Manual) Monocytes % (Manual) Platelet Evaluation Sodium Potassium Chloride Carbon Dioxide Anion Gap BUN Creatinine Est GFR ( Amer) Est GFR (Non-Af Amer) POC Glucose (mg/dL) 200 H Random Glucose Calcium Phosphorus Magnesium Total Bilirubin AST ALT Alkaline Phosphatase Troponin I 0.02 Total Protein Albumin Globulin Albumin/Globulin Ratio 01/09/19 01/10/1901/10/19 21:45 06:30 06:30 WBC 13.1 H RBC 4.85 Hgb 14.8 Hct 44.3 MCV 91.3 MCH 30.5 MCHC 33.4 RDW 13.8 Plt Count 184 MPV 10.3 Neut % (Auto) 90.4 H Lymph % (Auto) 7.3 L Cannon % (Auto) 2.2 Eos % (Auto) 0.0 L Baso % (Auto) 0.1 Lymph # (Auto) 1.0 L Cannon # (Auto) 0.3 Eos # (Auto) 0.0 Baso # (Auto) 0.01 Absolute Neuts (auto) 11.85 H Neutrophils % (Manual) 91 H Lymphocytes % (Manual) 9 L Monocytes % (Manual) TEST NOT PERFORMED Platelet Evaluation Normal Sodium 139 Potassium 3.1 L Chloride 103 Carbon Dioxide 25 Anion Gap 15 BUN 15 Creatinine 0.6 L Est GFR ( Amer) > 60 Est GFR (Non-Af Amer) > 60 POC Glucose (mg/dL) 182 H Random Glucose 229 H Calcium 8.7 Phosphorus 2.5 Magnesium 1.6 L Total Bilirubin 0.7 AST 26 ALT 11 Alkaline Phosphatase 60 Troponin I Total Protein 7.6 Albumin 4.1 Globulin 3.5 Albumin/Globulin Ratio 1.2 01/10/19 07:26 WBC RBC Hgb Hct MCV MCH MCHC RDW Plt Count MPV Neut % (Auto) Lymph % (Auto) Cannon % (Auto) Eos % (Auto) Baso % (Auto) Lymph # (Auto) Cannon # (Auto) Eos # (Auto) Baso # (Auto) Absolute Neuts (auto) Neutrophils % (Manual) Lymphocytes % (Manual) Monocytes % (Manual) Platelet Evaluation Sodium Potassium Chloride Carbon Dioxide Anion Gap BUN Creatinine Est GFR ( Amer) Est GFR (Non-Af Amer) POC Glucose (mg/dL) 233 H Random Glucose Calcium Phosphorus Magnesium Total Bilirubin AST ALT Alkaline Phosphatase Troponin I Total Protein Albumin Globulin Albumin/Globulin Ratio
--- NOTE | 2019-01-10 14:43 | CP.PCM.CON ---
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 The nausea and dizziness persisted and she had an episode of coffee ground emesis. GI and cardio evaluated the patient. An MRI was done which showed acute CVA in the inferior left cerebellar hemisphere with edema and mass effect. Neurology is on board. Today patient appeared solmnolent, still nauseous and dizzy. She denied cp, diarrhea, fevers. Patient will now require monitoring in the ICU. PMHx: Afib, CAD s/p BM LAD stent(04/2018), hx CVA w/ minimal residual R sided deficits, HTN, HLD, DM2, obesity All: Denies PSHx: cholecystectomy, R breast ca s/p lumpectomy, b/l TKR (20+ years ago) @[facility] SHx: denies tobacco/ETOH/drug use FamHx: Mother/Father: , no medical problems Home Meds: Pt unable to confirm-poor historian PMD: Dr. Teagan William Review of Systems - Review of Systems All systems: reviewed and no additional remarkable complaints except (as stated in HPI) Past Patient History - Infectious Disease Hx of Infectious Diseases: None - Past Social History Smoking Status: Never Smoked - CARDIAC Hx Cardiac Disorders: Yes (A-FIB) Hx Cardia Arrhythmia: Yes Hx Congestive Heart Failure: Yes Hx Hypertension: Yes - PULMONARY Hx Respiratory Disorders: No - NEUROLOGICAL HX Cerebrovascular Accident: Yes (10 years ago) - HEENT Hx HEENT Problems: No - RENAL Hx Chronic Kidney Disease: No - ENDOCRINE/METABOLIC Hx Diabetes Mellitus Type 2: Yes - HEMATOLOGICAL/ONCOLOGICAL Hx Blood Disorders: No - INTEGUMENTARY Hx Dermatological Problems: No Other/Comment: dry skin on shins; bl heels black eschar - MUSCULOSKELETAL/RHEUMATOLOGICAL Hx Musculoskeletal Disorders: No Hx Falls: No Hx Unsteady Gait: Yes (walks with cane) - GASTROINTESTINAL Hx Gastrointestinal Disorders: Yes Other/Comment: cholectomy - GENITOURINARY/GYNECOLOGICAL Hx Genitourinary Disorders: No - PSYCHIATRIC Hx Psychophysiologic Disorder: No - SURGICAL HISTORY Hx Surgeries: Yes Hx Cardiac Catheterization: Yes (STENT) Hx Coronary Stent: Yes Hx Orthopedic Surgery: Yes (knee) Other/Comment: R breast lumpectomy - ANESTHESIA Hx Anesthesia Reactions: (UNKNOWN- COULD NOT REMEMBER) Hx Malignant Hyperthermia: No Meds Allergies/Adverse Reactions: Allergies Allergy/AdvReac Type Severity Reaction Status Date / Time No Known Allergies Allergy Verified 01/09/19 06:01 - Medications Medications: Current Medications Amlodipine Besylate (Norvasc) 10 mg PO DAILY [facility] Last Admin: 01/10/19 10:20 Dose: Not Given Aspirin (Aspirin Supp) 600 mg RC DAILY [facility] Atorvastatin Calcium (Lipitor) 10 mg PO QAM [facility] Last Admin: 01/10/19 10:21 Dose: Not Given Sodium Chloride (Sodium Chloride 0.45%) 1,000 mls @ 75 mls/hr IV .[id number] [facility] Last Admin: 01/10/19 14:14 Dose: 75 mls/hr Insulin Human Regular (Humulin R Low) 0 units SC ACHS [facility]; Protocol Last Admin: 01/10/19 14:08 Dose: Not Given Meclizine HCl (Antivert) 25 mg PO Q6H [facility] Last Admin: 01/10/19 14:12 Dose: 25 mg Metoprolol Succinate (Toprol Xl) 100 mg PO BRK [facility] Last Admin: 01/10/19 10:21 Dose: Not Given Metoprolol Tartrate (Lopressor) 5 mg IVP Q6 PRN PRN Reason: Systolic Blood Pressure Last Admin: 01/10/19 10:20 Dose: 5 mg Ondansetron HCl (Zofran Inj) 4 mg IVP Q4H PRN PRN Reason: Nausea/Vomiting Last Admin: 01/10/19 10:19 Dose: 4 mg Pantoprazole Sodium (Protonix Inj) 40 mg IVP BID [facility] Last Admin: 01/10/19 10:19 Dose: 40 mg Physical Exam - Constitutional Appears: Well, Non-toxic Additional comments: lethargic - Head Exam Head Exam: ATRAUMATIC, NORMAL INSPECTION - Eye Exam Eye Exam: EOMI, Normal appearance, PERRL. absent: Scleral icterus - ENT Exam ENT Exam: Mucous Membranes Moist Additional comments: b/l cataracts noted - Neck Exam Neck exam: Positive for: Normal Inspection - Respiratory Exam Respiratory Exam: Clear to Auscultation Bilateral, NORMAL BREATHING PATTERN. absent: Rales, Rhonchi, Wheezes - Cardiovascular Exam Cardiovascular Exam: Irregular Rhythm, +S1, +S2. absent: Tachycardia, JVD, Systolic Murmur - GI/Abdominal Exam GI & Abdominal Exam: Normal Bowel Sounds, Soft. absent: Distended, Tenderness Additional comments: incision scars noted c/d/i mild epigastric tenderness - Extremities Exam Extremities exam: Positive for: normal capillary refill, normal inspection, pedal pulses present. Negative for: pedal edema - Neurological Exam Neurological exam: Alert, Motor Sensory Deficit, Oriented x3 - Psychiatric Exam Psychiatric exam: Flat Affect - Skin Skin Exam: Dry, Intact, Normal Color, Warm Results - Vital Signs Recent Vital Signs: Last Vital Signs Temp 99 F 01/10/19 09:30 Pulse 102 H 01/10/19 10:20 Resp 16 01/10/19 09:30 BP 197/73 H 01/10/19 10:20 Pulse Ox 99 01/10/19 09:30 - Labs Result Diagrams: 01/10/19 06:30 01/10/19 06:30 Labs: Laboratory Results - last 24 hr 01/09/19 01/09/19 01/09/19 16:16 17:45 17:45 WBC RBC Hgb 14.8 Hct MCV MCH MCHC RDW Plt Count MPV Neut % (Auto) Lymph % (Auto) [place] % (Auto) Eos % (Auto) Baso % (Auto) Lymph # (Auto) [place] # (Auto) Eos # (Auto) Baso # (Auto) Absolute Neuts (auto) Neutrophils % (Manual) Lymphocytes % (Manual) Monocytes % (Manual) Platelet Evaluation Sodium Potassium Chloride Carbon Dioxide Anion Gap BUN Creatinine Est GFR ( Amer) Est GFR (Non-Af Amer) POC Glucose (mg/dL) 200 H Random Glucose Calcium Phosphorus Magnesium Total Bilirubin AST ALT Alkaline Phosphatase Troponin I 0.02 Total Protein Albumin Globulin Albumin/Globulin Ratio 05/08/19 05/09/19 05/09/19 21:45 06:30 06:30 WBC 13.1 H RBC 4.85 Hgb 14.8 Hct 44.3 MCV 91.3 MCH 30.5 MCHC 33.4 RDW 13.8 Plt Count 184 MPV 10.3 Neut % (Auto) 90.4 H Lymph % (Auto) 7.3 L [place] % (Auto) 2.2 Eos % (Auto) 0.0 L Baso % (Auto) 0.1 Lymph # (Auto) 1.0 L [place] # (Auto) 0.3 Eos # (Auto) 0.0 Baso # (Auto) 0.01 Absolute Neuts (auto) 11.85 H Neutrophils % (Manual) 91 H Lymphocytes % (Manual) 9 L Monocytes % (Manual) TEST NOT PERFORMED Platelet Evaluation Normal Sodium 139 Potassium 3.1 L Chloride 103 Carbon Dioxide 25 Anion Gap 15 BUN 15 Creatinine 0.6 L Est GFR ( Amer) > 60 Est GFR (Non-Af Amer) > 60 POC Glucose (mg/dL) 182 H Random Glucose 229 H Calcium 8.7 Phosphorus 2.5 Magnesium 1.6 L Total Bilirubin 0.7 AST 26 ALT 11 Alkaline Phosphatase 60 Troponin I Total Protein 7.6 Albumin 4.1 Globulin 3.5 Albumin/Globulin Ratio 1.2 01/10/19 07:26 WBC RBC Hgb Hct MCV MCH MCHC RDW Plt Count MPV Neut % (Auto) Lymph % (Auto) [place] % (Auto) Eos % (Auto) Baso % (Auto) Lymph # (Auto) [place] # (Auto) Eos # (Auto) Baso # (Auto) Absolute Neuts (auto) Neutrophils % (Manual) Lymphocytes % (Manual) Monocytes % (Manual) Platelet Evaluation Sodium Potassium Chloride Carbon Dioxide Anion Gap BUN Creatinine Est GFR ( Amer) Est GFR (Non-Af Amer) POC Glucose (mg/dL) 233 H Random Glucose Calcium Phosphorus Magnesium Total Bilirubin AST ALT Alkaline Phosphatase Troponin I Total Protein Albumin Globulin Albumin/Globulin Ratio Assessment & Plan - Assessment and Plan (Free Text) Plan: Mrs Arellano is a 83 year old female with a PMHx of Afib (not on anticoagulation), CAD s/p BM LAD stent on ASA/plavix, 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 An MRI conducted showed acute CVA in the inferior left cerebellar hemisphere with edema and mass effect. Neurology #acute CVA in the inferior left cerebellar hemisphere with edema and mass effect -start aspirin 600mg rc qd -npo until cleared by speech and swallow -mannitol drip -plavix not able to be given rc, hold plavix for now -zofran 4mg ivp q4h prn for nausea -lipid panel shows triglycerides of 200 otherwise normal -swallow eval and treat, physical therapy eval and treat, high fall risk protocol, neuro checks q2h, aspiration precautions -echo performed, waiting for official read -MRI 01/10/19: * acute CVA in the inferior left cerebellar hemisphere with edema and mass effe ct -CTA head/neck 01/10/19: * unremarkable -CT head w/o contrast 01/09/19: * Age-appropriate age related neuro degenerative findings are identified as discussed above. Examination not dramatically changed compared prior brain MRI 07/18/2014. No definite acute findings as per standard CT criteria. -plan for CT head w/o contrast for tomorrow morning -neurology consulted, Dr Ernst -neurosurgery consulted, Dr Cornejo GI #concern for coffee ground emesis -protonix 40mg ivp bid -seen by GI, Dr Paniagua -Per GI, no present concern for GI bleeding - patient is OK to start antic oagulation for atrial fibrillation -GI has signed off as persistent nausea/vomiting likely due to acute stroke Cardiovascular #Afib, Rate controlled -lopressor 5mg ivp q6h prn for rate control -currently holding home toprol 100mg po qd and amlodipine 10mg po qd -cardiology consulted, Dr Hilton Endocrine #DM2 -Hgba1c 7.0 -accuchecks achs -insulin sliding scale - low dose protocol -holding home metformin Infectious Disease -afebrile -no active ID issues PPx: protonix 40mg ivp bid; no AO for fear of hemorrhagic conversion Seen and discussed with Dr Mary Miller <Mary Miller - Last Filed: 01/10/19 15:55> Meds - Medications Medications: Current Medications Amlodipine Besylate (Norvasc) 10 mg PO DAILY [facility] Last Admin: 01/10/19 10:20 Dose: Not Given Aspirin (Aspirin Supp) 600 mg RC DAILY [facility] Last Admin: 01/10/19 14:40 Dose: 600 mg Atorvastatin Calcium (Lipitor) 10 mg PO QAM [facility] Last Admin: 01/10/19 10:21 Dose: Not Given Clonidine HCl (Catapres-Tts3 0.3 Mg/24 Hr) 1 patch TD Q7D@1000 [facility] Hydralazine HCl (Apresoline) 10 mg IVP Q6H PRN PRN Reason: For SBP >160 Sodium Chloride (Sodium Chloride 0.45%) 1,000 mls @ 50 mls/hr IV .Q20H [facility] Insulin Human Regular (Humulin R Low) 0 units SC ACHS [facility]; Protocol Last Admin: 01/10/19 14:08 Dose: Not Given Meclizine HCl (Antivert) 25 mg PO Q6H [facility] Last Admin: 01/10/19 15:22 Dose: Not Given Metoprolol Succinate (Toprol Xl) 100 mg PO BRK [facility] Last Admin: 01/10/19 10:21 Dose: Not Given Metoprolol Tartrate (Lopressor) 5 mg IVP Q6 PRN PRN Reason: Systolic Blood Pressure Last Admin: 01/10/19 10:20 Dose: 5 mg Ondansetron HCl (Zofran Inj) 4 mg IVP Q4H PRN PRN Reason: Nausea/Vomiting Last Admin: 01/10/19 10:19 Dose: 4 mg Pantoprazole Sodium (Protonix Inj) 40 mg IVP BID [facility] Last Admin: 01/10/19 10:19 Dose: 40 mg Results - Vital Signs Recent Vital Signs: Last Vital Signs Temp 99 F 01/10/19 14:00 Pulse 92 H 01/10/19 14:00 Resp 18 01/10/19 14:00 BP 192/84 H 01/10/19 14:00 Pulse Ox 96 01/10/19 14:00 - Labs Result Diagrams: 01/10/19 06:30 01/10/19 06:30 Labs: Laboratory Results - last 24 hr 01/09/19 01/09/19 01/09/19 16:16 17:45 17:45 WBC RBC Hgb 14.8 Hct MCV MCH MCHC RDW Plt Count MPV Neut % (Auto) Lymph % (Auto) [place] % (Auto) Eos % (Auto) Baso % (Auto) Lymph # (Auto) [place] # (Auto) Eos # (Auto) Baso # (Auto) Absolute Neuts (auto) Neutrophils % (Manual) Lymphocytes % (Manual) Monocytes % (Manual) Platelet Evaluation Sodium Potassium Chloride Carbon Dioxide Anion Gap BUN Creatinine Est GFR ( Amer) Est GFR (Non-Af Amer) POC Glucose (mg/dL) 200 H Random Glucose Calcium Phosphorus Magnesium Total Bilirubin AST ALT Alkaline Phosphatase Troponin I 0.02 Total Protein Albumin Globulin Albumin/Globulin Ratio 01/09/19 01/10/19 01/10/19 21:45 06:30 06:30 WBC 13.1 H RBC 4.85 Hgb 14.8 Hct 44.3 MCV 91.3 MCH 30.5 MCHC 33.4 RDW 13.8 Plt Count 184 MPV 10.3 Neut % (Auto) 90.4 H Lymph % (Auto) 7.3 L [place] % (Auto) 2.2 Eos % (Auto) 0.0 L Baso % (Auto) 0.1 Lymph # (Auto) 1.0 L [place] # (Auto) 0.3 Eos # (Auto) 0.0 Baso # (Auto) 0.01 Absolute Neuts (auto) 11.85 H Neutrophils % (Manual) 91 H Lymphocytes % (Manual) 9 L Monocytes % (Manual) TEST NOT PERFORMED Platelet Evaluation Normal Sodium 139 Potassium 3.1 L Chloride 103 Carbon Dioxide 25 Anion Gap 15 BUN 15 Creatinine 0.6 L Est GFR ( Amer) > 60 Est GFR (Non-Af Amer) > 60 POC Glucose (mg/dL) 182 H Random Glucose 229 H Calcium 8.7 Phosphorus 2.5 Magnesium 1.6 L Total Bilirubin 0.7 AST 26 ALT 11 Alkaline Phosphatase 60 Troponin I Total Protein 7.6 Albumin 4.1 Globulin 3.5 Albumin/Globulin Ratio 1.2 01/10/19 07:26 WBC RBC Hgb Hct MCV MCH MCHC RDW Plt Count MPV Neut % (Auto) Lymph % (Auto) [place] % (Auto) Eos % (Auto) Baso % (Auto) Lymph # (Auto) [place] # (Auto) Eos # (Auto) Baso # (Auto) Absolute Neuts (auto) Neutrophils % (Manual) Lymphocytes % (Manual) Monocytes % (Manual) Platelet Evaluation Sodium Potassium Chloride Carbon Dioxide Anion Gap BUN Creatinine Est GFR ( Amer) Est GFR (Non-Af Amer) POC Glucose (mg/dL) 233 H Random Glucose Calcium Phosphorus Magnesium Total Bilirubin AST ALT Alkaline Phosphatase Troponin I Total Protein Albumin Globulin Albumin/Globulin Ratio Addendum Addendum: 01/10/19 15:55 MICU Attending Patient seen and examined with housestaff agree with resident note above with the following additions/exceptions 83F with a PMHx of Afib (not on anticoagulation), CAD s/p stent and prior hx of CVA admitted yesterday with dizziness, n/v . Initial CT head w and without contrast did not show infarct however MRI done today shows acute CVA in the inferior left cerebellar hemisphere with edema and mass effect. I suspect this may be from her afib however unclear at this time/ Transfer to ICU neuro checks q1 hours patient maintaining her own airway, awake and alert so does not need to be i ntubated at this time f/u neuro rec which include mannitol and ASA per rectum permissive hypertension NPO f/u neurosurgical rec cont BB IV to control HR - guarded to not drop BP to low as to allow permissive HTN PPI SCD for dvt ppx - not heparin given concern for hemorrhagic conversion glycemic control 120-180 Rest of care as per resident note above Mary Miller MD MICU Attending 01/10/19 15:55
--- NOTE | 2019-01-10 16:18 | CARD ---
APPROVED REPORT Date of service: 01/10/2019 EXAM: Two-dimensional and M-mode echocardiogram with Doppler and color Doppler. INDICATION LVFX 2D DIMENSIONS Left Atrium (2D)4.2 (1.6-4.0cm)IVSd1.2 (0.7-1.1cm) LVDd4.3 (3.9-5.9cm)PWd1.3 (0.7-1.1cm) LVDs3.0 (2.5-4.0cm)FS (%) 30.6 % LVEF (%)58.4 (>50%) M-Mode DIMENSIONS Aortic Root3.00 (2.2-3.7cm)Aortic Cusp Exc.1.60 (1.5-2.0cm) Aortic Valve AoV Peak Ptbniujo085.0cm/sAoV VTI30.4cmAO Peak GR.10mmHg LVOT Peak Tqliywqe91.2cm/sLVOT VTI18.20cmAO Mean GR.5mmHg AI P 1/2 [id number] Mitral Valve E/A ratio0.0 TDI E/Lateral E'0.0E/Medial E'0.0 Pulmonary Valve PV Peak Naobnchi56.9cm/sPV Peak Grad.3mmHg Tricuspid Valve TR Peak [id number]/sRAP [id number] Peak Gr.51mmHg [id number] LEFT VENTRICLE The left ventricle is normal size. There is mild concentric left ventricular hypertrophy. The left ventricular function is normal.EF-55-60% There is normal LV segmental wall motion. Unable to assess,pt was in A fib at the time of study. No left ventricle thrombus noted on this study. There is no ventricular septal defect visualized. There is no left ventricular aneurysm. RIGHT VENTRICLE The right ventricle is normal size. There is normal right ventricular wall thickness. The right ventricular systolic function is normal. ATRIA The left atrium is mildly dilated. The right atrium size is normal. The interatrial septum is intact with no evidence for an atrial septal defect. AORTIC VALVE The aortic valve is calcified and displays decreased opening. The aortic valve is moderately sclerotic. There is mild aortic regurgitation. There is no aortic valvular stenosis. There is no aortic valvular vegetation. MITRAL VALVE The mitral valve is thickened but opens well. Mitral regurgitation is mild to moderate. There is no mitral valve stenosis. There is no evidence of mitral valve prolapse. TRICUSPID VALVE The tricuspid valve leaflets are thickened , but open well. There is moderate tricuspid regurgitation.RVSP-61 mmof hg. There is moderate to severe pulmonary hypertension. There is no tricuspid valve stenosis. There is no tricuspid valve prolapse or vegetation. PULMONIC VALVE The pulmonic valve is not well visualized. GREAT VESSELS The aortic root is normal in size. The ascending aorta is normal in size. The pulmonary artery is normal. The IVC is normal in size and collapses >50% with inspiration. PERICARDIAL EFFUSION There is no pleural effusion. There is no pericardial effusion. <Conclusion> The left ventricle is normal size. There is mild concentric left ventricular hypertrophy. The left ventricular function is normal.EF-55-60% There is mild aortic regurgitation. Mitral regurgitation is mild to moderate. There is moderate tricuspid regurgitation.RVSP-61 mmof hg. There is moderate to severe pulmonary hypertension. The IVC is normal in size and collapses >50% with inspiration. There is no pericardial effusion. No thrombus or vegetation noted. Pt. was in A fib at the time of study.
[2019-01-10] MEDS: Sodium Chloride 0.45% 1,000 ML IV SCH (16:25)
--- NOTE | 2019-01-10 18:15 | CP.PCM.PN ---
Subjective - Date & Time of Evaluation Date of Evaluation: 01/10/19 Time of Evaluation: 16:30 - Subjective Subjective: Adonis Addison, PGY-1 Progress Note for ICU NIHSS LOC: 1- [place] LOC to questions: 2 -neither question correct LOC to commands: 0- obeys both correctly Best Gaze: 1-partial gaze palsy, favored to R Visual: 0 no visual loss Facial: 1- minor asymmetry in R labial fold Motor:2- LUE drift before 10 sec, RUE no drift, no drift, RLE drift before 5 sec Limb ataxia: 0 - Finger to nose without issue, Difficult to assess heel to blanc d/t inability to bend knees 2/2 knee replacements Sensory: 1 mild loss Best language: 1 mild aphasia Dysarthria: 0 normal articulation Neglect: 1 - partial as patient often incorrectly which side was touched Score: 10 Moderate Stroke Case reviewed with Dr. Deep Miller. Adonis Addison, PGY-1 Objective - Vital Signs/Intake and Output Vital Signs (last 24 hours): Temp Pulse Resp BP Pulse Ox 99 F 92 H 18 192/84 H 96 01/10/19 14:00 01/10/19 14:00 01/10/19 14:00 01/10/19 14:00 01/10/19 14:00 Intake and Output: 01/10/19 01/10/19 06:59 18:59 Intake Total 0 Output Total 350 Balance -350 - Medications Medications: Current Medications Amlodipine Besylate (Norvasc) 10 mg PO DAILY [facility] Last Admin: 01/10/19 10:20 Dose: Not Given Aspirin (Aspirin Supp) 600 mg RC DAILY [facility] Last Admin: 01/10/19 14:40 Dose: 600 mg Atorvastatin Calcium (Lipitor) 10 mg PO QAM [facility] Last Admin: 01/10/19 10:21 Dose: Not Given Clonidine HCl (Catapres-Tts3 0.3 Mg/24 Hr) 1 patch TD Q7D@1000 [facility] Last Admin: 01/10/19 16:24 Dose: Not Given Hydralazine HCl (Apresoline) 10 mg IVP Q6H PRN PRN Reason: For SBP >160 Sodium Chloride (Sodium Chloride 0.45%) 1,000 mls @ 50 mls/hr IV .Q20H [facility] Last Admin: 01/10/19 16:25 Dose: Not Given Mannitol (Mannitol) 100 mls @ 100 mls/hr IV Q8H [facility] Last Admin: 01/10/19 16:27 Dose: 100 mls/hr Insulin Human Regular (Humulin R Low) 0 units SC ACHS [facility]; Protocol Last Admin: 01/10/19 17:27 Dose: Not Given Meclizine HCl (Antivert) 25 mg PO Q6H [facility] Last Admin: 01/10/19 15:22 Dose: Not Given Metoprolol Succinate (Toprol Xl) 100 mg PO BRK [facility] Last Admin: 01/10/19 10:21 Dose: Not Given Metoprolol Tartrate (Lopressor) 5 mg IVP Q6 PRN PRN Reason: Systolic Blood Pressure Last Admin: 01/10/19 10:20 Dose: 5 mg Ondansetron HCl (Zofran Inj) 4 mg IVP Q4H PRN PRN Reason: Nausea/Vomiting Last Admin: 01/10/19 10:19 Dose: 4 mg Pantoprazole Sodium (Protonix Inj) 40 mg IVP BID [facility] Last Admin: 01/10/19 17:29 Dose: 40 mg - Labs Labs: 01/10/19 06:30 01/10/19 06:30 PT 11.4 SECONDS (9.4-12.5) 01/09/19 03:27 INR 1.03 01/09/19 03:27 APTT 36.4 Seconds (26.9-38.3) 01/09/19 03:27
[2019-01-10 19:49] LABS: BLOOD UREA NITROGEN 15 mg/dL (7-21); CALCIUM 8.6 mg/dL (8.4-10.5); GFR NON-AFRICAN AMERICAN > 60
--- NOTE | 2019-01-10 19:49 | CP.PCM.CON ---
History of Present Illness - History of Present Illness History of Present Illness: Films reviewed/case d/w Dr Ernst 83 yo mult med problems has been on ASA and plavix at lesst 24 hr old cerebellar infarct - prob longer poor surgical candidate would rec max medical mgmt: HOB elevation,dehydration BP control Past Patient History - Infectious Disease Hx of Infectious Diseases: None - Past Social History Smoking Status: Never Smoked - CARDIAC Hx Cardiac Disorders: Yes Hx Congestive Heart Failure: Yes Hx Hypertension: Yes - PULMONARY Hx Respiratory Disorders: No - NEUROLOGICAL HX Cerebrovascular Accident: Yes (10 years ago; mild R residule) - HEENT Hx HEENT Problems: No - RENAL Hx Chronic Kidney Disease: No - ENDOCRINE/METABOLIC Hx Diabetes Mellitus Type 2: Yes - HEMATOLOGICAL/ONCOLOGICAL Hx Cancer: Yes (breast) - INTEGUMENTARY Hx Dermatological Problems: No Other/Comment: dry skin on shins; bl heels black eschar - MUSCULOSKELETAL/RHEUMATOLOGICAL Hx Musculoskeletal Disorders: No Hx Falls: No Hx Unsteady Gait: Yes (walks with cane) - GASTROINTESTINAL Hx Gastrointestinal Disorders: Yes Other/Comment: cholectomy - GENITOURINARY/GYNECOLOGICAL Hx Genitourinary Disorders: No - PSYCHIATRIC Hx Psychophysiologic Disorder: No - SURGICAL HISTORY Hx Surgeries: Yes Hx Cardiac Catheterization: Yes (STENT) Hx Coronary Stent: Yes Hx Orthopedic Surgery: Yes (knee) Other/Comment: R breast lumpectomy - ANESTHESIA Hx Anesthesia Reactions: (UNKNOWN- COULD NOT REMEMBER) Hx Malignant Hyperthermia: No Meds Allergies/Adverse Reactions: Allergies Allergy/AdvReac Type Severity Reaction Status Date / Time No Known Allergies Allergy Verified 01/09/19 06:01 - Medications Medications: Current Medications Amlodipine Besylate (Norvasc) 10 mg PO DAILY [facility] Last Admin: 01/10/19 10:20 Dose: Not Given Aspirin (Aspirin Supp) 600 mg RC DAILY [facility] Last Admin: 01/10/19 14:40 Dose: 600 mg Atorvastatin Calcium (Lipitor) 10 mg PO QAM [facility] Last Admin: 01/10/19 10:21 Dose: Not Given Clonidine HCl (Catapres-Tts3 0.3 Mg/24 Hr) 1 patch TD Q7D@1000 [facility] Last Admin: 01/10/19 16:24 Dose: Not Given Hydralazine HCl (Apresoline) 10 mg IVP Q6H PRN PRN Reason: For SBP >160 Sodium Chloride (Sodium Chloride 0.45%) 1,000 mls @ 50 mls/hr IV .Q20H [facility] Last Admin: 01/10/19 16:25 Dose: Not Given Mannitol (Mannitol) 100 mls @ 100 mls/hr IV Q8H [facility] Last Admin: 01/10/19 16:27 Dose: 100 mls/hr Insulin Human Regular (Humulin R Low) 0 units SC ACHS [facility]; Protocol Last Admin: 01/10/19 17:27 Dose: Not Given Meclizine HCl (Antivert) 25 mg PO Q6H [facility] Last Admin: 01/10/19 15:22 Dose: Not Given Metoprolol Succinate (Toprol Xl) 100 mg PO BRK [facility] Last Admin: 01/10/19 10:21 Dose: Not Given Metoprolol Tartrate (Lopressor) 5 mg IVP Q6 PRN PRN Reason: Systolic Blood Pressure Last Admin: 01/10/19 10:20 Dose: 5 mg Ondansetron HCl (Zofran Inj) 4 mg IVP Q4H PRN PRN Reason: Nausea/Vomiting Last Admin: 01/10/19 10:19 Dose: 4 mg Pantoprazole Sodium (Protonix Inj) 40 mg IVP BID [facility] Last Admin: 01/10/19 17:29 Dose: 40 mg Results - Vital Signs Recent Vital Signs: Last Vital Signs Temp 98.8 F 01/10/19 18:00 Pulse 87 01/10/19 18:20 Resp 22 01/10/19 18:20 BP 198/102 H 01/10/19 18:00 Pulse Ox 96 01/10/19 18:20 - Labs Result Diagrams: 01/10/19 06:30 01/10/19 06:30 Labs: Laboratory Results - last 24 hr 01/09/19 01/10/19 01/10/19 21:45 06:30 06:30 WBC 13.1 H RBC 4.85 Hgb 14.8 Hct 44.3 MCV 91.3 MCH 30.5 MCHC 33.4 RDW 13.8 Plt Count 184 MPV 10.3 Neut % (Auto) 90.4 H Lymph % (Auto) 7.3 L [place] % (Auto) 2.2 Eos % (Auto) 0.0 L Baso % (Auto) 0.1 Lymph # (Auto) 1.0 L [place] # (Auto) 0.3 Eos # (Auto) 0.0 Baso # (Auto) 0.01 Absolute Neuts (auto) 11.85 H Neutrophils % (Manual) 91 H Lymphocytes % (Manual) 9 L Monocytes % (Manual) TEST NOT PERFORMED Platelet Evaluation Normal Sodium 139 Potassium 3.1 L Chloride 103 Carbon Dioxide 25 Anion Gap 15 BUN 15 Creatinine 0.6 L Est GFR ( Amer) > 60 Est GFR (Non-Af Amer) > 60 POC Glucose (mg/dL) 182 H Random Glucose 229 H Calcium 8.7 Phosphorus 2.5 Magnesium 1.6 L Total Bilirubin 0.7 AST 26 ALT 11 Alkaline Phosphatase 60 Total Protein 7.6 Albumin 4.1 Globulin 3.5 Albumin/Globulin Ratio 1.2 01/10/19 01/10/19 07:26 16:33 WBC RBC Hgb Hct MCV MCH MCHC RDW Plt Count MPV Neut % (Auto) Lymph % (Auto) [place] % (Auto) Eos % (Auto) Baso % (Auto) Lymph # (Auto) [place] # (Auto) Eos # (Auto) Baso # (Auto) Absolute Neuts (auto) Neutrophils % (Manual) Lymphocytes % (Manual) Monocytes % (Manual) Platelet Evaluation Sodium Potassium Chloride Carbon Dioxide Anion Gap BUN Creatinine Est GFR ( Amer) Est GFR (Non-Af Amer) POC Glucose (mg/dL) 233 H 181 H Random Glucose Calcium Phosphorus Magnesium Total Bilirubin AST ALT Alkaline Phosphatase Total Protein Albumin Globulin Albumin/Globulin Ratio
[2019-01-11 00:46] LABS: BLOOD UREA NITROGEN 15 mg/dL (7-21); CALCIUM 8.4 mg/dL (8.4-10.5); GFR NON-AFRICAN AMERICAN > 60
[2019-01-11] MEDS ORDERED: levETIRAcetam 1000mg/100ml NS 100 ML IV ONE (04:05)
[2019-01-11] MEDS ORDERED: Midazolam 2 MG/2 ML VIAL ONE (04:14)
[2019-01-11] MEDS ORDERED: Propofol 10 mg/ml 1,000 MG/100 ML VIAL IV PRN (04:43)
[2019-01-11] MEDS ORDERED: Midazolam 2 MG/2 ML VIAL IVP ONE (04:44)
[2019-01-11] MEDS ORDERED: Midazolam 2 MG/2 ML VIAL IVP STA (04:44)
--- NOTE | 2019-01-11 04:56 | PCM.PROC ---
<Kristina Murrieta - Last Filed: 01/11/19 04:56> Procedures Attestation:: I certify that I have explained the specified Operation(s) or Procedure(s), risks, benefits and reasonable alternatives to the Patient and/or other person responsible. The opportunity was given to ask questions and all questions answered - Intubation Time Out Performed: Yes Sedative: Versed Mg Given: 2 mg IV x2 Laryngoscope: Danielle ET Tube Size: 7.5 ET Tube Secured at Depth: 22 cm ET Tube Secured Locarion: Lips ET Tube Placement Confirmation: Visualized Passing Through Cords, Breath Sounds Equal Bilaterally, No Breath Sounds Over Epigastrum, Confirmation w/Capnometry Patient Tolerated Procedure: Well Procedure Immediate Complications: None <Verona Casas - Last Filed: 01/11/19 06:03> Attending/Attestation - Attestation I have personally seen and examined this patient.: Yes I have fully participated in the care of the patient.: Yes I have reviewed all pertinent clinical information, including history, physical exam and plan: Yes
--- NOTE | 2019-01-11 05:18 | CP.PCM.PN ---
<Kristina Murrieta - Last Filed: 01/11/19 07:59> Subjective - Date & Time of Evaluation Date of Evaluation: 01/11/19 Time of Evaluation: 05:18 - Subjective Subjective: Kristina Murrieta, PGY2, ICU Note for Dr Casas: Nurse called to inform of a change in patient's mental status, patient confused initially, now aphasic, lethargic, left extremity paresis, unequal pupils. STAT CT head ordered, prelim read shows secondary midline shift to right side measuring 4.[address] Ernst made aware, recommends intubation, IV Keppra 1000 mg IV x 1 dose and then 500 mg IV BID. Increased her Mannitol to q6h and given Decadron 10 mg IV x1, then will receive 4 mg IV q6h. Patient intubated, sedated on Propofol. Spoke with neurosurgery Dr Cardozo, who recommends possible decompression. Request stat pt, ptt, platelet count, which are ordered. Spoke with family (, daughter Leon Arellano, son Mj Arellano and others) regarding patient status, all questions answered to the best of my ability. Family wants to speak to neurosurgery and Neurology. Nurse aware, states that she will call Dr Cornejo now to talk to family. Primary attending Dr Gonzales and ICU team aware of overnight events as well. Case seen and discussed with Dr Casas. Objective - Vital Signs/Intake and Output Vital Signs (last 24 hours): Temp Pulse Resp BP Pulse Ox 98.6 F 98 H 24 181/75 H 98 01/11/19 00:01 01/11/19 03:20 01/11/19 03:20 01/11/19 03:06 01/11/19 03:20 - Medications Medications: Current Medications Amlodipine Besylate (Norvasc) 10 mg PO DAILY [facility] Last Admin: 01/10/19 10:20 Dose: Not Given Aspirin (Aspirin Supp) 600 mg RC DAILY [facility] Last Admin: 01/10/19 14:40 Dose: 600 mg Atorvastatin Calcium (Lipitor) 10 mg PO QAM [facility] Last Admin: 01/10/19 10:21 Dose: Not Given Dexamethasone (Decadron Inj) 4 mg IVP Q6 [facility] Sodium Chloride (Sodium Chloride 0.45%) 1,000 mls @ 50 mls/hr IV .Q20H [facility] Last Admin: 01/10/19 16:25 Dose: Not Given Potassium Chloride (Potassium Chloride 10 Meq/100 Ml) 10 meq in 100 mls @ 100 mls/hr IVPB Q2H [facility] Stop: 01/11/19 06:29 Last Admin: 01/11/19 03:49 Dose: 100 mls/hr Levetiracetam 500 mg/ Sodium (Chloride) 105 mls @ 215 mls/hr IVPB Q12 [facility] Propofol (Diprivan) 1,000 mg in 100 mls @ 2.286 mls/hr IV .Q24H PRN; Protocol PRN Reason: TITRATE PER MD ORDER Mannitol (Mannitol) 100 mls @ 100 mls/hr IV Q6H [facility] Insulin Human Regular (Humulin R Low) 0 units SC ACHS [facility]; Protocol Last Admin: 01/10/19 22:00 Dose: Not Given Meclizine HCl (Antivert) 25 mg PO Q6H [facility] Last Admin: 01/10/19 15:22 Dose: Not Given Metoprolol Succinate (Toprol Xl) 100 mg PO BRK [facility] Last Admin: 01/10/19 10:21 Dose: Not Given Ondansetron HCl (Zofran Inj) 4 mg IVP Q4H PRN PRN Reason: Nausea/Vomiting Last Admin: 01/10/19 10:19 Dose: 4 mg Pantoprazole Sodium (Protonix Inj) 40 mg IVP BID [facility] Last Admin: 01/10/19 17:29 Dose: 40 mg - Labs Labs: 01/10/19 06:30 01/11/19 00:20 PT 11.4 SECONDS (9.4-12.5) 01/09/19 03:27 INR 1.03 01/09/19 03:27 APTT 36.4 Seconds (26.9-38.3) 01/09/19 03:27 <Verona Casas - Last Filed: 01/11/19 21:54> Objective - Vital Signs/Intake and Output Vital Signs (last 24 hours): Temp Pulse Resp BP Pulse Ox 98.6 F 79 21 180/105 H 100 01/11/19 17:00 01/11/19 19:40 01/11/19 04:48 01/11/19 19:00 01/11/19 19:40 - Medications Medications: Current Medications Amlodipine Besylate (Norvasc) 10 mg PO DAILY [facility] Last Admin: 01/10/19 10:20 Dose: Not Given Aspirin (Aspirin Supp) 600 mg RC DAILY [facility] Last Admin: 01/11/19 13:59 Dose: 600 mg Atorvastatin Calcium (Lipitor) 10 mg PO QAM [facility] Last Admin: 01/10/19 10:21 Dose: Not Given Dexamethasone (Decadron Inj) 4 mg IVP Q6 [facility] Last Admin: 01/11/19 19:48 Dose: 4 mg Sodium Chloride (Sodium Chloride 0.45%) 1,000 mls @ 50 mls/hr IV .Q20H [facility] Last Admin: 01/11/19 12:38 Dose: 50 mls/hr Levetiracetam (Keppra 500mg Ivpb) 500 mg in 100 mls @ 200 mls/hr IVPB Q12 [facility] Last Admin: 01/11/19 10:00 Dose: 200 mls/hr Propofol (Diprivan) 1,000 mg in 100 mls @ 2.286 mls/hr IV .Q24H [facility]; Protocol PRN Reason: TITRATE PER MD ORDER Last Admin: 01/11/19 05:00 Dose: 5 mcg/kg/min, 2.286 mls/hr Mannitol 25 gm/ IV SUPPLIES 100 mls @ 100 mls/hr IV Q6H [facility] Last Admin: 01/11/19 21:24 Dose: 100 mls/hr Insulin Human Regular (Humulin R Low) 0 units SC Q6 [facility]; Protocol Meclizine HCl (Antivert) 25 mg PO Q6H [facility] Last Admin: 01/10/19 15:22 Dose: Not Given Metoprolol Succinate (Toprol Xl) 100 mg PO BRK [facility] Last Admin: 01/10/19 10:21 Dose: Not Given Ondansetron HCl (Zofran Inj) 4 mg IVP Q4H PRN PRN Reason: Nausea/Vomiting Last Admin: 01/10/19 10:19 Dose: 4 mg Pantoprazole Sodium (Protonix Inj) 40 mg IVP DAILY [facility] Last Admin: 01/11/19 12:26 Dose: 40 mg - Labs Labs: 01/11/19 05:30 01/11/19 05:30 PT 12.8 SECONDS (9.4-12.5) H 01/11/19 08:15 INR 1.13 01/11/19 08:15 APTT 32.8 Seconds (26.9-38.3) 01/11/19 08:15 Attending/Attestation - Attestation I have personally seen and examined this patient.: Yes I have fully participated in the care of the patient.: Yes I have reviewed all pertinent clinical information, including history, physical exam and plan: Yes Notes (Text): 01/11/19 21:54 CCT spent -30 minutes.
[2019-01-11 05:39] LABS: ARTERIAL BLOOD GAS HCO3 24.1 mmol/L (21-28); ARTERIAL BLOOD GAS O2 CAPACITY 21.8 mL/dl (16-24); ARTERIAL BLOOD GAS O2 CONTENT 21.8 ML/dl (15-23); ARTERIAL BLOOD GAS PCO2 38 mm/Hg (35-45); ARTERIAL BLOOD GAS PH 7.41 (7.35-7.45); ARTERIAL BLOOD GAS TCO2 25.3 mmol.L (22-28)
[2019-01-11 06:24] LABS: BASO # 0.01 K/mm3 (0.0-2.0); BASO % 0.1 % (0.0-3.0); HEMOGLOBIN 14.7 g/dL (12.0-16.0); LYMPH # 0.6 (1.2-3.4); LYMPH % 4.6 % (22.0-35.0); MEAN CELL VOLUME 92.2 fl (80.0-105.0); MEAN CORPUSCULAR HEMOGLOBIN 30.8 pg (25.0-35.0); MEAN CORPUSCULAR HGB CONC 33.4 g/dl (31.0-37.0); MEAN PLATELET VOLUME 10.6 fl (7.0-11.0); MONO # 0.6 (0.1-0.6); MONO % 4.8 % (1.0-6.0); RBC 4.77 10^6/uL (3.5-6.1); RED CELL DISTRIBUTION WIDTH 14.1 % (11.5-14.5)
[2019-01-11 06:49] LABS: LDL CHOLESTEROL 91 mg/dL (0-129)
--- NOTE | 2019-01-11 06:59 | CP.PCM.PN ---
<Alfredo Johansen - Last Filed: 01/11/19 15:17> Subjective - Date & Time of Evaluation Date of Evaluation: 01/11/19 Time of Evaluation: 06:15 - Subjective Subjective: Alfredo Johansen DO PGY1 Hospitalist Progress Note for Dr Gonzales Patient seen and examined at bedside in ICU. Overnight, patient became aphasic, lethargic, left extremity paresis, unequal pupils. Stat CT head ordered and shows secondary midline shift to right side. Patient transferred to ICU for further management. Now she is intubated, sedated, on PRVC, responds to paiful stimuli, moves extremities spontaneously. Objective - Vital Signs/Intake and Output Vital Signs (last 24 hours): Temp Pulse Resp BP Pulse Ox 98.6 F 98 H 24 181/75 H 98 01/11/19 06:00 01/11/19 06:00 01/11/19 03:20 01/11/19 03:06 01/11/19 03:20 Intake and Output: 01/10/19 01/11/19 18:59 06:59 Intake Total 700 Output Total 750 Balance -50 - Medications Medications: Current Medications Amlodipine Besylate (Norvasc) 10 mg PO DAILY [facility] Last Admin: 01/10/19 10:20 Dose: Not Given Aspirin (Aspirin Supp) 600 mg RC DAILY [facility] Last Admin: 01/10/19 14:40 Dose: 600 mg Atorvastatin Calcium (Lipitor) 10 mg PO QAM [facility] Last Admin: 01/10/19 10:21 Dose: Not Given Dexamethasone (Decadron Inj) 4 mg IVP Q6 [facility] Sodium Chloride (Sodium Chloride 0.45%) 1,000 mls @ 50 mls/hr IV .Q20H [facility] Last Admin: 01/10/19 16:25 Dose: Not Given Levetiracetam 500 mg/ Sodium (Chloride) 105 mls @ 215 mls/hr IVPB Q12 [facility] Propofol (Diprivan) 1,000 mg in 100 mls @ 2.286 mls/hr IV .Q24H PRN; Protocol PRN Reason: TITRATE PER MD ORDER Last Admin: 01/11/19 05:00 Dose: 5 mcg/kg/min, 2.286 mls/hr Mannitol (Mannitol) 100 mls @ 100 mls/hr IV Q6H [facility] Last Admin: 01/11/19 06:44 Dose: 100 mls/hr Insulin Human Regular (Humulin R Low) 0 units SC ACHS [facility]; Protocol Last Admin: 01/10/19 22:00 Dose: Not Given Meclizine HCl (Antivert) 25 mg PO Q6H [facility] Last Admin: 01/10/19 15:22 Dose: Not Given Metoprolol Succinate (Toprol Xl) 100 mg PO BRK [facility] Last Admin: 01/10/19 10:21 Dose: Not Given Ondansetron HCl (Zofran Inj) 4 mg IVP Q4H PRN PRN Reason: Nausea/Vomiting Last Admin: 01/10/19 10:19 Dose: 4 mg Pantoprazole Sodium (Protonix Inj) 40 mg IVP BID [facility] Last Admin: 01/10/19 17:29 Dose: 40 mg - Labs Labs: 01/11/19 05:30 PT 11.4 SECONDS (9.4-12.5) 01/09/19 03:27 INR 1.03 01/09/19 03:27 APTT 36.4 Seconds (26.9-38.3) 01/09/19 03:27 - Constitutional Appears: Chronically Ill, Other (intubated, sedated, on propofol) - Head Exam Head Exam: ATRAUMATIC, NORMAL INSPECTION, NORMOCEPHALIC - Eye Exam Additional comments: pupils sluggish. Gaze Palsy - ENT Exam ENT Exam: Mucous Membranes Moist, Normal Exam - Neck Exam Neck Exam: Normal Inspection. absent: Thyromegaly - Respiratory Exam Respiratory Exam: absent: Rales, Rhonchi, Wheezes Additional comments: intubated - Cardiovascular Exam Cardiovascular Exam: Irregular Rhythm, +S1, +S2. absent: Gallop, JVD, RRR - GI/Abdominal Exam GI & Abdominal Exam: Soft, Normal Bowel Sounds. absent: Tenderness - Extremities Exam Extremities Exam: absent: Joint Swelling, Pedal Edema - Back Exam Back Exam: NORMAL INSPECTION - Neurological Exam Neurological Exam: Altered Additional comments: withdraw limb on painful stimuli. non responsive to verbal stimulation - Psychiatric Exam Additional comments: sedated - Skin Skin Exam: Dry, Intact, Normal Color, Warm Assessment and Plan - Assessment and Plan (Free Text) Assessment: 83 y/o F ic[place]ic with PMH of Afib, CAD s/p BM LAD stent, hx CVA w/minimal R sided deficits, HTN, HLD, DM2, R breast ca s/p lumpectomy, obesity presents to ED with dizziness, N/V x1 day.Found to have left cerebellar infarction on MRI. Admitted to ICU for further management Plan: Acute left cerebellar CVA: -MRI brain 01/10: acute CVA in the inferior left cerebellar hemisphere with edema and mass effect -CTA head/neck 01/10: unremarkable -continue mannitol, Decadron as per neurology -Neurosurgery Dr Cornejo following, the family opted against surgical intervention -neuro check Q1H -palliative care consulted -PT eval/treat -swallow eval -hold anticoagulants -aspiration precaution -neurology following, Dr Ernst Afib: -lopressor 5mg ivp q6h prn for rate control HTN/CAD -echo 01/10: EF 55%, mod to severe pulm HTN, no thrombus or vegetation noted, mild concentric LV hypertrophy -hold home toprol, amlodipine HLD -lipid panel: TG 200 -hold lipitor po DM2 -ISS-low -Hgba1c 7 -accuchecks achs -hold home metformin PPX: -GI: protonix -DVT: SCD -NPO Casee reviewed and plan discussed with attending Dr Christian Johansen, DO <Rebeca Gonzales R - Last Filed: 01/12/19 07:06> Objective - Vital Signs/Intake and Output Vital Signs (last 24 hours): Temp Pulse Resp BP Pulse Ox 98.4 F 72 16 175/82 H 100 01/12/19 00:01 01/12/19 00:01 01/12/19 00:01 01/12/19 00:01 01/12/19 00:01 - Medications Medications: Current Medications Amlodipine Besylate (Norvasc) 10 mg PO DAILY [facility] Last Admin: 01/10/19 10:20 Dose: Not Given Aspirin (Aspirin Supp) 600 mg RC DAILY [facility] Last Admin: 01/11/19 13:59 Dose: 600 mg Atorvastatin Calcium (Lipitor) 10 mg PO QAM [facility] Last Admin: 01/10/19 10:21 Dose: Not Given Dexamethasone (Decadron Inj) 4 mg IVP Q6 [facility] Last Admin: 01/12/19 06:16 Dose: 4 mg Sodium Chloride (Sodium Chloride 0.45%) 1,000 mls @ 50 mls/hr IV .Q20H [facility] Last Admin: 01/11/19 12:38 Dose: 50 mls/hr Levetiracetam (Keppra 500mg Ivpb) 500 mg in 100 mls @ 200 mls/hr IVPB Q12 [facility] Last Admin: 01/11/19 22:24 Dose: 200 mls/hr Propofol (Diprivan) 1,000 mg in 100 mls @ 2.286 mls/hr IV .Q24H PRN; Protocol PRN Reason: TITRATE PER MD ORDER Last Admin: 01/11/19 05:00 Dose: 5 mcg/kg/min, 2.286 mls/hr Mannitol 25 gm/ IV SUPPLIES 100 mls @ 100 mls/hr IV Q6H [facility] Last Admin: 01/12/19 02:17 Dose: 100 mls/hr Insulin Human Regular (Humulin R Low) 0 units SC Q6 [facility]; Protocol Last Admin: 01/12/19 06:16 Dose: 1 unit Meclizine HCl (Antivert) 25 mg PO Q6H [facility] Last Admin: 01/10/19 15:22 Dose: Not Given Metoprolol Succinate (Toprol Xl) 100 mg PO BRK [facility] Last Admin: 01/10/19 10:21 Dose: Not Given Ondansetron HCl (Zofran Inj) 4 mg IVP Q4H PRN PRN Reason: Nausea/Vomiting Last Admin: 01/10/19 10:19 Dose: 4 mg Pantoprazole Sodium (Protonix Inj) 40 mg IVP DAILY [facility] Last Admin: 01/11/19 12:26 Dose: 40 mg - Labs Labs: 01/12/19 05:30 01/12/19 05:30 PT 12.8 SECONDS (9.4-12.5) H 01/11/19 08:15 INR 1.13 01/11/19 08:15 APTT 32.8 Seconds (26.9-38.3) 01/11/19 08:15 Attending/Attestation - Attestation I have personally seen and examined this patient.: Yes I have fully participated in the care of the patient.: Yes I have reviewed all pertinent clinical information, including history, physical exam and plan: Yes Notes (Text): Patient seen and examined by me with resident at approximately 9:50AM on 01/11/19. Case including HPI, physical exam, and assessment and plan discussed with resident. Agree with above with following additions/corrections. Patient is an 83-year-old female with past medical history significant for atrial fibrillation, coronary artery disease status post bare metal stent placement, CVA with mild right-sided weakness, hypertension, hyperlipidemia, type 2 diabetes, right breast cancer status post lumpectomy, and dizziness to presented to the emergency room with complaints of dizziness, nausea, and vomiting. Patient inbtubated. Taken off sedation. Overnight events noted. Family at bedside. Patient is not opening eyes. Patient is moving right side. Squeezing hand when asked to with right hand. Unable to obtain any review of systems from patient. Patient is afebrile. Physical exam: General: Intubated HEENT: Patient is not opening eyes, unable to evaulate. ET tube in place. Cardiovascular: Irregularly irregular rhythm. No murmus, rubs, or gallops appreciated Pulmonary: Vent sounds heard throughout. No rhonci, rales, or wheezing appreci ated. Auscultated anteriorly. Gastrointestinal: Soft, nondistended. Nontender. Positive bowel sounds all 4 quadrants. No guarding. Musculoskeletal: Moving right upper and lower extremity. No movement of left extremities. No edema appreciated. Central nervous system: Intubated, just taken off of sedation. Dermatologic: Skin warm and dry. Assessment and plan: Patient is an 83-year-old female with past medical history significant for atrial fibrillation, coronary artery disease status post bare metal stent placement, CVA with mild right-sided weakness, hypertension, hyperlipidemia, type 2 diabetes, right breast cancer status post lumpectomy, and dizziness to presented to the emergency room with complaints of dizziness, nausea, and vomiting. 1. Acute large left cerebellar CVA. MRI brain per radiologist showed an acute infarct in the inferior left cerebellar hemisphere in the distribution of the posterior inferior cerebellar artery, also involves to left cerebellar tonsil, associated edema and mass effect with swelling of the left cerebellar hemisphere, no evidence of herniation. Head CT overnight per radiologist showed diffuse swelling of the left cerebellar hemisphere consistent with an acute infarct, findings appear to be unchanged compared to prior MRI; some mass effect with midline shift in the posterior fossa and compression of the fourth ventricle, no associated hydrocephalus. Patient intubated, vent settings as per ICU. Sedation held. Started on Keppra. Continue Decadron and mannitol. Continue hyperventilation. Neurology recommendations appreciated. Neurosurgery rec ommendations appreciated. Patient's family refusing surgical intervention. Continue aspirin rectally. 2-D echo per case specialist showed left ventricle is normal size, mild concentric left ventricular hypertrophy, left ventricular function is normal, EF 55-60%, mild aortic regurgitation, mitral regurgitation is mild to moderate, moderate tricuspid regurgitation, moderate to severe pulmonary hypertension, no pericardial effusion, no thrombus or vegetation noted, patient in A. fib at time of study. Continue to monitor closely in the ICU. 2. Dizziness with persistent nausea and vomiting. Secondary to #1. Continue care as above. 3. Coffee ground emesis. GI recommendations appreciated. Continue Protonix. May have been secondary to frequent retching and emesis. H&H stable. 4. Atrial fibrillation. Patient was not taking Eliquis at home as prescribed previously. Confirmed with patient's pharmacy. Cardiology recommendations appreciated. Aspirin rectally. Rate controlled. 2-D echo as above. 5. Uncontrolled hypertension. Blood pressure medications held for now. Allow for permissive hypertension. 6. History of CVA with right-sided weakness. Continue with aspirin rectally. 7. CAD s/p stent. Continue with aspirin rectally. Cardiology recommendations appreciated. 2D echo read as above 8. DM2. Continue with insulins sliding scale. Continue to monitor accuchecks. Case was discussed in detail with the patient's family at bedside regarding current diagnosis, study results, and treatment plan. All questions answered. Case also discussed with neurologist.
[2019-01-11 07:16] LABS: ALB/GLOB RATIO 1.1 (1.1-1.8); ALBUMIN 3.9 g/dL (3.0-4.8); ALT/SGPT 14 U/L (7-56); AST/SGOT 32 U/L (14-36); BLOOD UREA NITROGEN 16 mg/dL (7-21); CALCIUM 8.3 mg/dL (8.4-10.5); GFR NON-AFRICAN AMERICAN > 60; HDL CHOLESTEROL 38 mg/dL (29-60)
[2019-01-11] MEDS: Insulin Reg-LOW-Coverage SC SCH ×3 (07:30→19:48)
[2019-01-11] MEDS ORDERED: Propofol 10 mg/ml Inj (20 ML) ONE (07:42)
[2019-01-11] MEDS ORDERED: ePHEDrine 50 mg/ml Inj ONE (07:43)
[2019-01-11] MEDS ORDERED: Rocuronium 10 mg/ml (5 ml) ONE (07:44)
[2019-01-11] MEDS ORDERED: Phenylephrine 10 mg/ml Inj ONE (07:44)
[2019-01-11] MEDS ORDERED: Liquid Adhesive TOP ONE (08:05)
[2019-01-11] MEDS ORDERED: Lidocaine 1% w Epi 1:100,000 Inj ONE (08:06)
[2019-01-11] MEDS ORDERED: Thrombin Topical 20,000 Intl Units Spray Kit TOP ONE (08:07)
[2019-01-11] MEDS ORDERED: Mannitol 12.5 gm/50 ml Inj IV ONE (08:19)
--- NOTE | 2019-01-11 08:25 | PCM.PCON ---
History of Present Illness - History of Present Illness History of Present Illness: Palliative consult requested H Gonzales Reason Goals of care This is an 83year old [place] female with history of atrial fibrillation, CAD, CVA, DM, breast cancer who presented to the ED on 01/09 with dizziness, AMS. The patient developed sudden onset dizziness and lightheadedness two days prior to admission which progressively worsened to the point where she was having difficulty ambulating at home. She also complained of nausea when moving her head. Nausea/vomiting persisted for several hours without much relief from Zofran. Denied fever,chills,shortness of breath,chest pain,abdominal pain. Work up revealed acute left cerebellar infarct with mass effect This morning at 2:15 am the patient was found to be aphasic with eyes deviated to right CT showed midline shift. Seen by neurosurgery surgical intervention offered, family refused. Head CT 01/09: No acute findings. Age appropriate changes Head/Neck CTA 01/09: Unremarkable. MRI of Brain 01/10:Acute infarct in the inferior left cerebellar hemisphere in distribution of the posterior cerebral artery, also involves left cerebellar tonsi. Associated edema and mass effect with swelling in left cerebral hemisphere. PMHx: atrial fibrillation, CAD s/p PCI on ASA/plavix, CVA, uncontrolled HTN, DM, breast cancer PSHx: Right breast lumpectomy. Family History: HTN Social History: Never smoker, denied alcohol or illicit drug use. Lives with family. Review of Systems: As per HPI,intubated/unresponsive. Review of Systems - Review of Systems All systems: reviewed and no additional remarkable complaints except Physical Exam - Constitutional Appears: No Acute Distress - ENT Exam ENT Exam: Mucous Membranes Moist - Respiratory Exam Respiratory Exam: Clear to Auscultation Bilateral, NORMAL BREATHING PATTERN - Cardiovascular Exam Cardiovascular Exam: REGULAR RHYTHM, +S1, +S2 - GI/Abdominal Exam GI & Abdominal Exam: Normal Bowel Sounds, Soft - Skin Skin Exam: Dry, Warm - Additional Findings Additional findings: Palliative performance scale 20% Palliative Care - Goals Treatment Goal(s): Alleviate symptoms, Improve quality of life End of life care discussed: Yes - Plan Interdisciplinary involved: street worker, Physician Assessment & Plan - Assessment and Plan (Free Text) Assessment: 83 year old female with history of HTN,CAD, CVA, A Fib who was admitted with dizziness, nausea and vomiting. MRI brain that shows left cerebellar hemisphere acute stroke. During the night she became aphasic, eyes deviated to right CT showed midline shift. Seen by neurosurgery surgical intervention offered, family refused. Patients and children at bedside. Family has been updated of patient condition from MICU team, PCP and neurology. Palliative services explained as additional support for family. The family is aware that patients prognosis is guarded. Family has decided that they do not want any invasive procedures such as surgery but do want to continue supportive care. Family wants to wait a few days before making any other decision. If patient does not improve, they do not want to prolong her life on machines. Resuscitation status discussed. Patient stated that he does not want CPR, wants to allow for natural . Daughter to speak with her sister before moving to DNR status. Psychosocial support provided. Spiritual support offered, called Time spent with family in goals of care and advance care planning,30 minutes Plan: Goals of care and advance care planning As per Neuro recs, ASA 600mg rc, Mannitol 25%, Decadron 4mg, Keppra, hypotonic NA IVF Ventilator support, 02 sat>90% GI prophylaxes
[2019-01-11 08:37] LABS: INR 1.13; PARTIAL THROMBOPLASTIN TIME 32.8 Seconds (26.9-38.3); PROTHROMBIN TIME 12.8 SECONDS (9.4-12.5)
--- NOTE | 2019-01-11 09:07 | CP.PCM.PN ---
Subjective - Date & Time of Evaluation Date of Evaluation: 01/11/19 Time of Evaluation: 09:06 - Subjective Subjective: full consult dicatated after lengthy discussion with family they chose not to allow surgery suggest cont agressive med tx and if no improvement in 48 hrs then palliative care Objective - Vital Signs/Intake and Output Vital Signs (last 24 hours): Temp Pulse Resp BP Pulse Ox 98.6 F 98 H 21 197/146 H 87 L 01/11/19 06:00 01/11/19 06:00 01/11/19 04:48 01/11/19 04:30 01/11/19 05:00 Intake and Output: 01/11/19 01/11/19 06:59 18:59 Intake Total 700 Output Total 750 Balance -50 - Medications Medications: Current Medications Amlodipine Besylate (Norvasc) 10 mg PO DAILY [facility] Last Admin: 01/10/19 10:20 Dose: Not Given Aspirin (Aspirin Supp) 600 mg RC DAILY [facility] Last Admin: 01/10/19 14:40 Dose: 600 mg Atorvastatin Calcium (Lipitor) 10 mg PO QAM [facility] Last Admin: 01/10/19 10:21 Dose: Not Given Dexamethasone (Decadron Inj) 4 mg IVP Q6 BECCA Sodium Chloride (Sodium Chloride 0.45%) 1,000 mls @ 50 mls/hr IV .Q20H BECCA Last Admin: 01/10/19 16:25 Dose: Not Given Levetiracetam (Keppra 500mg Ivpb) 500 mg in 100 mls @ 200 mls/hr IVPB Q12 BECCA Propofol (Diprivan) 1,000 mg in 100 mls @ 2.286 mls/hr IV .Q24H PRN; Protocol PRN Reason: TITRATE PER MD ORDER Last Admin: 01/11/19 05:00 Dose: 5 mcg/kg/min, 2.286 mls/hr Mannitol (Mannitol) 100 mls @ 100 mls/hr IV Q6H [facility] Last Admin: 01/11/19 06:44 Dose: 100 mls/hr Insulin Human Regular (Humulin R Low) 0 units SC ACHS BECCA; Protocol Last Admin: 01/10/19 22:00 Dose: Not Given Meclizine HCl (Antivert) 25 mg PO Q6H [facility] Last Admin: 01/10/19 15:22 Dose: Not Given Metoprolol Succinate (Toprol Xl) 100 mg PO BRK BECCA Last Admin: 01/10/19 10:21 Dose: Not Given Ondansetron HCl (Zofran Inj) 4 mg IVP Q4H PRN PRN Reason: Nausea/Vomiting Last Admin: 01/10/19 10:19 Dose: 4 mg Pantoprazole Sodium (Protonix Inj) 40 mg IVP DAILY BECCA - Labs Labs: 01/11/19 05:30 01/11/19 05:30 PT 12.8 SECONDS (9.4-12.5) H 01/11/19 08:15 INR 1.13 01/11/19 08:15 APTT 32.8 Seconds (26.9-38.3) 01/11/19 08:15
--- NOTE | 2019-01-11 09:13 | CT ---
Date of service: 01/11/2019 PROCEDURE: CT HEAD WITHOUT CONTRAST. HISTORY: change in mental status COMPARISON: MRI 01/10/2019 TECHNIQUE: Axial computed tomography images were obtained through the head/brain without intravenous contrast. Radiation dose: Total exam DLP = 956.72 mGy-cm. This CT exam was performed using one or more of the following dose reduction techniques: Automated exposure control, adjustment of the mA and/or kV according to patient size, and/or use of iterative reconstruction technique. FINDINGS: HEMORRHAGE: No intracranial hemorrhage. BRAIN: There is diffuse swelling of the left cerebellar hemisphere consistent with an acute infarct. The findings appear to be unchanged compared to the prior MRI. There is some mass effect with midline shift in the posterior fossa and compression of the 4th ventricle. There is no associated hydrocephalus no atrophy or chronic microvascular ischemic changes. VENTRICLES: Unremarkable. No hydrocephalus. CALVARIUM: Unremarkable. PARANASAL SINUSES: Unremarkable as visualized. No significant inflammatory changes. MASTOID AIR CELLS: Unremarkable as visualized. No inflammatory changes. OTHER FINDINGS: None. IMPRESSION: There is diffuse swelling of the left cerebellar hemisphere consistent with an acute infarct. The findings appear to be unchanged compared to the prior MRI. There is some mass effect with midline shift in the posterior fossa and compression of the 4th ventricle. There is no associated hydrocephalus
[2019-01-11] MEDS: levETIRAcetam 500mg IVPB 500 MG/100 ML BAG IVPB SCH ×2 (10:00→22:24)
--- NOTE | 2019-01-11 10:34 | RAD ---
HISTORY: intubate COMPARISON: Chest x-ray performed 01/09/19 TECHNIQUE: Chest, one view. FINDINGS: Examination limited by habitus. Endotracheal tube terminates approximately 4.3 cm above the rosa. LUNGS: Mild venous congestion. No focal consolidation. Please note that chest x-ray has limited sensitivity for the detection of pulmonary masses. PLEURA: No significant pleural effusion identified. No definite pneumothorax . CARDIOVASCULAR: Cardiomegaly. Dense atherosclerotic calcifications of an ectatic aorta. OSSEOUS STRUCTURES: Degenerative changes. Osseous demineralization. VISUALIZED UPPER ABDOMEN: Elevation of the right hemidiaphragm. Right upper quadrant surgical clips. OTHER FINDINGS: None. IMPRESSION: Right hilar prominence. Mild venous congestion. Cardiomegaly.
--- NOTE | 2019-01-11 10:57 | CP.CCUPN ---
<Theron Gomez - Last Filed: 01/11/19 11:09> CCU Subjective - Physician Review Subjective (Free Text): PGY-2 ICU progress note for Dr Gentile Overnight patient's conditioned worsened - patient confused initially, then aphasic, lethargic, unilateral extremity paresis, unequal pupils. Patient was intubated, sedated on propofol and given decadron 10mg ivp, keppra 1000mg iv and stat CT head ordered. This morning, family at bedside. Patient withdraws to pain on left side, pupils sluggish to light reflex. ROS not obtainable as patient is intubated and sedated. 01/11/19 10:54 Critical Care Time Spent (in minutes): 35 CCU Objective - Vital Signs / Intake & Output Intake and Output (Last 8hrs): Intake & Output 01/10/19 01/11/19 01/11/19 22:59 06:59 14:59 Intake Total 700 Output Total 750 Balance -50 Weight 166 lb 11.2 oz Intake: IV 700 Bilateral Wrist 700 Oral 0 Output: Urine 750 Urethral (Angelo) 750 Other: # Bowel Movements 0 - Physical Exam Physical Exam Limitations: Positive for: Other (intubated) Head: Positive for: Atraumatic, Normocephalic Pupils: Positive for: Sluggish Extroacular Muscles: Positive for: Gaze Palsy Conjunctiva: Positive for: Normal Mouth: Positive for: Moist Mucous Membranes Respiratory/Chest: Positive for: Rales (intubated ) Cardiovascular: Positive for: Irregular Rhythm, Peripheal Pulses Present. Negative for: Murmurs, Tachycardic Abdomen: Positive for: Normal Bowel Sounds. Negative for: Distention Neurological: Positive for: Other (pt intubated and non-responsive to commands) Skin: Positive for: Warm, Dry, Normal Color - Medications Active Medications: Active Medications Generic Name Dose Route Start Last Admin Trade Name Freq PRN Reason Stop Dose Admin Amlodipine Besylate 10 mg 01/09/19 10:00 01/10/19 10:20 Norvasc PO Not Given DAILY BECCA Aspirin 600 mg 01/10/19 14:45 01/10/19 14:40 Aspirin Supp RC 600 mg DAILY BECCA Administration Atorvastatin Calcium 10 mg 01/09/19 10:00 01/10/19 10:21 Lipitor PO Not Given QAM [facility] Dexamethasone 4 mg 01/11/19 12:00 Decadron Inj IVP Q6 BECCA Sodium Chloride 1,000 mls @ 50 mls/hr 01/10/19 15:45 01/10/19 16:25 Sodium Chloride 0.45% IV Not Given .Q20H BECCA Levetiracetam 500 mg in 100 mls @ 200 mls/hr 01/11/19 10:00 Keppra 500mg Ivpb IVPB Q12 BECCA Propofol 1,000 mg in 100 mls @ 2.286 mls/hr 01/11/19 04:43 01/11/19 05:00 Diprivan IV 5 mcg/kg/min .Q24H PRN 2.286 mls/hr TITRATE PER MD ORDER Administration Protocol 5 MCG/KG/MIN Mannitol 100 mls @ 100 mls/hr 01/11/19 05:15 01/11/19 06:44 Mannitol IV 100 mls/hr Q6H BECCA Administration Insulin Human Regular 0 units 01/09/19 07:30 01/10/19 22:00 Humulin R Low SC Not Given ACHS [facility] Protocol Meclizine HCl 25 mg 01/09/19 06:30 01/10/19 15:22 Antivert PO Not Given Q6H [facility] Metoprolol Succinate 100 mg 01/09/19 11:00 01/10/19 10:21 Toprol Xl PO Not Given BRK [facility] Ondansetron HCl 4 mg 01/09/19 08:44 01/10/19 10:19 Zofran Inj IVP 4 mg Q4H PRN Administration Nausea/Vomiting Pantoprazole Sodium 40 mg 01/11/19 10:00 Protonix Inj IVP DAILY [facility] - Patient Studies Lab Studies: Lab Studies 01/11/19 01/11/19 01/11/19 Range/Units 08:15 07:38 05:30 WBC (4.5-11.0) 10^3/uL RBC (3.5-6.1) 10^6/uL Hgb (12.0-16.0) g/dL Hct (36.0-48.0) % MCV (80.0-105.0) fl MCH (25.0-35.0) pg MCHC (31.0-37.0) g/dl RDW (11.5-14.5) % Plt Count (120.0-450.0) 10^3/uL MPV (7.0-11.0) fl Neut % (Auto) (50.0-68.0) % Lymph % (Auto) (22.0-35.0) % [place] % (Auto) (1.0-6.0) % Eos % (Auto) (1.5-5.0) % Baso % (Auto) (0.0-3.0) % Lymph # (Auto) (1.2-3.4) [place] # (Auto) (0.1-0.6) Eos # (Auto) (0.0-0.7) Baso # (Auto) (0.0-2.0) K/mm3 Absolute Neuts (auto) (1.4-6.5) PT 12.8 H (9.4-12.5) SECONDS INR 1.13 APTT 32.8 (26.9-38.3) Seconds pCO2 (35-45) mm/Hg pO2 (80-100) mm/Hg HCO3 (21-28) mmol/L ABG pH (7.35-7.45) ABG Total CO2 (22-28) mmol.L ABG O2 Saturation (95-98) % ABG O2 Content (15-23) ML/dl ABG Base Excess (-2.0-3.0) mmol/L ABG Hemoglobin (11.7-17.4) g/dL ABG Carboxyhemoglobin (0.5-1.5) % POC ABG HHb (Measured) (0-5) % ABG Methemoglobin (0.0-3.0) % ABG O2 Capacity (16-24) mL/dl Hgb O2 Saturation (95.0-98.0) % FiO2 % Sodium (132-148) mmol/L Potassium (3.6-5.0) mmol/L Chloride (98-107) mmol/L Carbon Dioxide (21-33) mmol/L Anion Gap (10-20) BUN (7-21) mg/dL Creatinine (0.7-1.2) mg/dl Est GFR ( Amer) Est GFR (Non-Af Amer) POC Glucose (mg/dL) 198 H (65-110) mg/dL Random Glucose (70-110) mg/dL Calcium (8.4-10.5) mg/dL Phosphorus (2.5-4.5) mg/dL Magnesium (1.7-2.2) mg/dL Total Bilirubin (0.2-1.3) mg/dL AST (14-36) U/L ALT (7-56) U/L Alkaline Phosphatase (38-126) U/L Total Protein (5.8-8.3) g/dL Albumin (3.0-4.8) g/dL Globulin gm/dL Albumin/Globulin Ratio (1.1-1.8) Triglycerides (35-160) mg/dL Cholesterol (130-200) mg/dL LDL Cholesterol Direct (0-129) mg/dL HDL Cholesterol (29-60) mg/dL TSH 3rd Generation 0.69 (0.46-4.68) mIU/mL 01/11/19 01/11/19 01/11/19 Range/Units 05:30 05:30 05:25 WBC 12.0 H (4.5-11.0) 10^3/uL RBC 4.77 (3.5-6.1) 10^6/uL Hgb 14.7 (12.0-16.0) g/dL Hct 44.0 (36.0-48.0) % MCV 92.2 (80.0-105.0) fl MCH 30.8 (25.0-35.0) pg MCHC 33.4 (31.0-37.0) g/dl RDW 14.1 (11.5-14.5) % Plt Count 160 (120.0-450.0) 10^3/uL MPV 10.6 (7.0-11.0) fl Neut % (Auto) 90.5 H (50.0-68.0) % Lymph % (Auto) 4.6 L (22.0-35.0) % [place] % (Auto) 4.8 (1.0-6.0) % Eos % (Auto) 0.0 L (1.5-5.0) % Baso % (Auto) 0.1 (0.0-3.0) % Lymph # (Auto) 0.6 L (1.2-3.4) [place] # (Auto) 0.6 (0.1-0.6) Eos # (Auto) 0.0 (0.0-0.7) Baso # (Auto) 0.01 (0.0-2.0) K/mm3 Absolute Neuts (auto) 10.89 H (1.4-6.5) PT (9.4-12.5) SECONDS INR APTT (26.9-38.3) Seconds pCO2 38 (35-45) mm/Hg pO2 498.0 H (80-100) mm/Hg HCO3 24.1 (21-28) mmol/L ABG pH 7.41 (7.35-7.45) ABG Total CO2 25.3 (22-28) mmol.L ABG O2 Saturation 100.0 H (95-98) % ABG O2 Content 21.8 (15-23) ML/dl ABG Base Excess -0.3 (-2.0-3.0) mmol/L ABG Hemoglobin 15.0 (11.7-17.4) g/dL ABG Carboxyhemoglobin 1.6 H (0.5-1.5) % POC ABG HHb (Measured) 0 (0-5) % ABG Methemoglobin 1.2 (0.0-3.0) % ABG O2 Capacity 21.8 (16-24) mL/dl Hgb O2 Saturation 97.2 (95.0-98.0) % FiO2 100.0 % Sodium 138 (132-148) mmol/L Potassium 3.8 (3.6-5.0) mmol/L Chloride 101 (98-107) mmol/L Carbon Dioxide 26 (21-33) mmol/L Anion Gap 15 (10-20) BUN 16 (7-21) mg/dL Creatinine 0.7 (0.7-1.2) mg/dl Est GFR ( Amer) > 60 Est GFR (Non-Af Amer) > 60 POC Glucose (mg/dL) (65-110) mg/dL Random Glucose 222 H (70-110) mg/dL Calcium 8.3 L (8.4-10.5) mg/dL Phosphorus 2.3 L (2.5-4.5) mg/dL Magnesium 2.3 H (1.7-2.2) mg/dL Total Bilirubin 0.7 (0.2-1.3) mg/dL AST 32 (14-36) U/L ALT 14 (7-56) U/L Alkaline Phosphatase 59 (38-126) U/L Total Protein 7.3 (5.8-8.3) g/dL Albumin 3.9 (3.0-4.8) g/dL Globulin 3.4 gm/dL Albumin/Globulin Ratio 1.1 (1.1-1.8) Triglycerides 253 H (35-160) mg/dL Cholesterol 143 (130-200) mg/dL LDL Cholesterol Direct 91 (0-129) mg/dL HDL Cholesterol 38 (29-60) mg/dL TSH 3rd Generation (0.46-4.68) mIU/mL 01/11/19 01/10/19 01/10/19 Range/Units 00:20 21:43 19:15 WBC (4.5-11.0) 10^3/uL RBC (3.5-6.1) 10^6/uL Hgb (12.0-16.0) g/dL Hct (36.0-48.0) % MCV (80.0-105.0) fl MCH (25.0-35.0) pg MCHC (31.0-37.0) g/dl RDW (11.5-14.5) % Plt Count (120.0-450.0) 10^3/uL MPV (7.0-11.0) fl Neut % (Auto) (50.0-68.0) % Lymph % (Auto) (22.0-35.0) % [place] % (Auto) (1.0-6.0) % Eos % (Auto) (1.5-5.0) % Baso % (Auto) (0.0-3.0) % Lymph # (Auto) (1.2-3.4) [place] # (Auto) (0.1-0.6) Eos # (Auto) (0.0-0.7) Baso # (Auto) (0.0-2.0) K/mm3 Absolute Neuts (auto) (1.4-6.5) PT (9.4-12.5) SECONDS INR APTT (26.9-38.3) Seconds pCO2 (35-45) mm/Hg pO2 (80-100) mm/Hg HCO3 (21-28) mmol/L ABG pH (7.35-7.45) ABG Total CO2 (22-28) mmol.L ABG O2 Saturation (95-98) % ABG O2 Content (15-23) ML/dl ABG Base Excess (-2.0-3.0) mmol/L ABG Hemoglobin (11.7-17.4) g/dL ABG Carboxyhemoglobin (0.5-1.5) % POC ABG HHb (Measured) (0-5) % ABG Methemoglobin (0.0-3.0) % ABG O2 Capacity (16-24) mL/dl Hgb O2 Saturation (95.0-98.0) % FiO2 % Sodium 136 138 (132-148) mmol/L Potassium 3.5 L 3.7 (3.6-5.0) mmol/L Chloride 100 101 (98-107) mmol/L Carbon Dioxide 27 26 (21-33) mmol/L Anion Gap 13 15 (10-20) BUN 15 15 (7-21) mg/dL Creatinine 0.6 L 0.6 L (0.7-1.2) mg/dl Est GFR ( Amer) > 60 > 60 Est GFR (Non-Af Amer) > 60 > 60 POC Glucose (mg/dL) 158 H (65-110) mg/dL Random Glucose 192 H 169 H (70-110) mg/dL Calcium 8.4 8.6 (8.4-10.5) mg/dL Phosphorus (2.5-4.5) mg/dL Magnesium (1.7-2.2) mg/dL Total Bilirubin (0.2-1.3) mg/dL AST (14-36) U/L ALT (7-56) U/L Alkaline Phosphatase (38-126) U/L Total Protein (5.8-8.3) g/dL Albumin (3.0-4.8) g/dL Globulin gm/dL Albumin/Globulin Ratio (1.1-1.8) Triglycerides (35-160) mg/dL Cholesterol (130-200) mg/dL LDL Cholesterol Direct (0-129) mg/dL HDL Cholesterol (29-60) mg/dL TSH 3rd Generation (0.46-4.68) mIU/mL 01/10/19 Range/Units 16:33 WBC (4.5-11.0) 10^3/uL RBC (3.5-6.1) 10^6/uL Hgb (12.0-16.0) g/dL Hct (36.0-48.0) % MCV (80.0-105.0) fl MCH (25.0-35.0) pg MCHC (31.0-37.0) g/dl RDW (11.5-14.5) % Plt Count (120.0-450.0) 10^3/uL MPV (7.0-11.0) fl Neut % (Auto) (50.0-68.0) % Lymph % (Auto) (22.0-35.0) % [place] % (Auto) (1.0-6.0) % Eos % (Auto) (1.5-5.0) % Baso % (Auto) (0.0-3.0) % Lymph # (Auto) (1.2-3.4) [place] # (Auto) (0.1-0.6) Eos # (Auto) (0.0-0.7) Baso # (Auto) (0.0-2.0) K/mm3 Absolute Neuts (auto) (1.4-6.5) PT (9.4-12.5) SECONDS INR APTT (26.9-38.3) Seconds pCO2 (35-45) mm/Hg pO2 (80-100) mm/Hg HCO3 (21-28) mmol/L ABG pH (7.35-7.45) ABG Total CO2 (22-28) mmol.L ABG O2 Saturation (95-98) % ABG O2 Content (15-23) ML/dl ABG Base Excess (-2.0-3.0) mmol/L ABG Hemoglobin (11.7-17.4) g/dL ABG Carboxyhemoglobin (0.5-1.5) % POC ABG HHb (Measured) (0-5) % ABG Methemoglobin (0.0-3.0) % ABG O2 Capacity (16-24) mL/dl Hgb O2 Saturation (95.0-98.0) % FiO2 % Sodium (132-148) mmol/L Potassium (3.6-5.0) mmol/L Chloride (98-107) mmol/L Carbon Dioxide (21-33) mmol/L Anion Gap (10-20) BUN (7-21) mg/dL Creatinine (0.7-1.2) mg/dl Est GFR ( Amer) Est GFR (Non-Af Amer) POC Glucose (mg/dL) 181 H (65-110) mg/dL Random Glucose (70-110) mg/dL Calcium (8.4-10.5) mg/dL Phosphorus (2.5-4.5) mg/dL Magnesium (1.7-2.2) mg/dL Total Bilirubin (0.2-1.3) mg/dL AST (14-36) U/L ALT (7-56) U/L Alkaline Phosphatase (38-126) U/L Total Protein (5.8-8.3) g/dL Albumin (3.0-4.8) g/dL Globulin gm/dL Albumin/Globulin Ratio (1.1-1.8) Triglycerides (35-160) mg/dL Cholesterol (130-200) mg/dL LDL Cholesterol Direct (0-129) mg/dL HDL Cholesterol (29-60) mg/dL TSH 3rd Generation (0.46-4.68) mIU/mL Laboratory Results - last 24 hr 01/10/19 01/10/19 01/10/19 16:33 19:15 21:43 WBC RBC Hgb Hct MCV MCH MCHC RDW Plt Count MPV Neut % (Auto) Lymph % (Auto) [place] % (Auto) Eos % (Auto) Baso % (Auto) Lymph # (Auto) [place] # (Auto) Eos # (Auto) Baso # (Auto) Absolute Neuts (auto) PT INR APTT pCO2 pO2 HCO3 ABG pH ABG Total CO2 ABG O2 Saturation ABG O2 Content ABG Base Excess ABG Hemoglobin ABG Carboxyhemoglobin POC ABG HHb (Measured) ABG Methemoglobin ABG O2 Capacity Hgb O2 Saturation FiO2 Sodium 138 Potassium 3.7 Chloride 101 Carbon Dioxide 26 Anion Gap 15 BUN 15 Creatinine 0.6 L Est GFR ( Amer) > 60 Est GFR (Non-Af Amer) > 60 POC Glucose (mg/dL) 181 H 158 H Random Glucose 169 H Calcium 8.6 Phosphorus Magnesium Total Bilirubin AST ALT Alkaline Phosphatase Total Protein Albumin Globulin Albumin/Globulin Ratio Triglycerides Cholesterol LDL Cholesterol Direct HDL Cholesterol TSH 3rd Generation 01/11/19 01/11/19 01/11/19 00:20 05:25 05:30 WBC RBC Hgb Hct MCV MCH MCHC RDW Plt Count MPV Neut % (Auto) Lymph % (Auto) [place] % (Auto) Eos % (Auto) Baso % (Auto) Lymph # (Auto) [place] # (Auto) Eos # (Auto) Baso # (Auto) Absolute Neuts (auto) PT INR APTT pCO2 38 pO2 498.0 H HCO3 24.1 ABG pH 7.41 ABG Total CO2 25.3 ABG O2 Saturation 100.0 H ABG O2 Content 21.8 ABG Base Excess -0.3 ABG Hemoglobin 15.0 ABG Carboxyhemoglobin 1.6 H POC ABG HHb (Measured) 0 ABG Methemoglobin 1.2 ABG O2 Capacity 21.8 Hgb O2 Saturation 97.2 FiO2 100.0 Sodium 136 138 Potassium 3.5 L 3.8 Chloride 100 101 Carbon Dioxide 27 26 Anion Gap 13 15 BUN 15 16 Creatinine 0.6 L 0.7 Est GFR ( Amer) > 60 > 60 Est GFR (Non-Af Amer) > 60 > 60 POC Glucose (mg/dL) Random Glucose 192 H 222 H Calcium 8.4 8.3 L Phosphorus 2.3 L Magnesium 2.3 H Total Bilirubin 0.7 AST 32 ALT 14 Alkaline Phosphatase 59 Total Protein 7.3 Albumin 3.9 Globulin 3.4 Albumin/Globulin Ratio 1.1 Triglycerides 253 H Cholesterol 143 LDL Cholesterol Direct 91 HDL Cholesterol 38 TSH 3rd Generation 01/11/19 01/11/19 01/11/19 05:30 05:30 07:38 WBC 12.0 H RBC 4.77 Hgb 14.7 Hct 44.0 MCV 92.2 MCH 30.8 MCHC 33.4 RDW 14.1 Plt Count 160 MPV 10.6 Neut % (Auto) 90.5 H Lymph % (Auto) 4.6 L [place] % (Auto) 4.8 Eos % (Auto) 0.0 L Baso % (Auto) 0.1 Lymph # (Auto) 0.6 L [place] # (Auto) 0.6 Eos # (Auto) 0.0 Baso # (Auto) 0.01 Absolute Neuts (auto) 10.89 H PT INR APTT pCO2 pO2 HCO3 ABG pH ABG Total CO2 ABG O2 Saturation ABG O2 Content ABG Base Excess ABG Hemoglobin ABG Carboxyhemoglobin POC ABG HHb (Measured) ABG Methemoglobin ABG O2 Capacity Hgb O2 Saturation FiO2 Sodium Potassium Chloride Carbon Dioxide Anion Gap BUN Creatinine Est GFR ( Amer) Est GFR (Non-Af Amer) POC Glucose (mg/dL) 198 H Random Glucose Calcium Phosphorus Magnesium Total Bilirubin AST ALT Alkaline Phosphatase Total Protein Albumin Globulin Albumin/Globulin Ratio Triglycerides Cholesterol LDL Cholesterol Direct HDL Cholesterol TSH 3rd Generation 0.69 01/11/19 08:15 WBC RBC Hgb Hct MCV MCH MCHC RDW Plt Count MPV Neut % (Auto) Lymph % (Auto) [place] % (Auto) Eos % (Auto) Baso % (Auto) Lymph # (Auto) [place] # (Auto) Eos # (Auto) Baso # (Auto) Absolute Neuts (auto) PT 12.8 H INR 1.13 APTT 32.8 pCO2 pO2 HCO3 ABG pH ABG Total CO2 ABG O2 Saturation ABG O2 Content ABG Base Excess ABG Hemoglobin ABG Carboxyhemoglobin POC ABG HHb (Measured) ABG Methemoglobin ABG O2 Capacity Hgb O2 Saturation FiO2 Sodium Potassium Chloride Carbon Dioxide Anion Gap BUN Creatinine Est GFR ( Amer) Est GFR (Non-Af Amer) POC Glucose (mg/dL) Random Glucose Calcium Phosphorus Magnesium Total Bilirubin AST ALT Alkaline Phosphatase Total Protein Albumin Globulin Albumin/Globulin Ratio Triglycerides Cholesterol LDL Cholesterol Direct HDL Cholesterol TSH 3rd Generation Radiology Impressions: Radiology Impressions Head/Neck CTA 01/10/19 07:44 IMPRESSION: Calcified plaque in both carotid bifurcations with no significant stenosis CT Angiography of the Brain. HISTORY: dizziness COMPARISON: None available. TECHNIQUE: CT angiography of the intracranial arteries was performed. Coronal and sagittal maximum intensity projection reformated images were generated. Radiation dose: Total exam DLP = 586.53 mGy-cm. This CT exam was performed using one or more of the following dose reduction techniques: Automated exposure control, adjustment of the mA and/or kV according to patient size, and/or use of iterative reconstruction technique. FINDINGS: INTERNAL CEREBRAL ARTERIES: Unremarkable. The skull base, petrous, cavernous and supraclinoid segments are bilaterally widely patent. ANTERIOR CEREBRAL ARTERIES: Unremarkable. A1 and A2 segments are widely patent. Smaller distal branches unremarkable, as visualized. MIDDLE CEREBRAL ARTERIES: Unremarkable. M1 and M2 segments are widely patent. Perisylvian branches grossly symmetric. POSTERIOR CIRCULATION: Basilar Artery: Unremarkable. Distal Vertebral Arteries: Unremarkable. Posterior Cerebral Arteries: Unremarkable. Posterior Inferior Cerebellar Arteries: Unremarkable. ANEURYSM/ VASCULAR MALFORMATIONS: None. OTHER FINDINGS: None. IMPRESSION: Unremarkable CT Angiography of the Brain. Brain MRI 01/10/19 10:45 IMPRESSION: There is an acute infarct in the inferior left cerebellar hemisphere in the distribution of the posterior inferior cerebellar artery. This also involves the left cerebellar tonsil. There is associated edema and mass effect with swelling of the left cerebellar hemisphere. There is no evidence of herniation. Head CT 01/11/19 02:40 IMPRESSION: There is diffuse swelling of the left cerebellar hemisphere consistent with an acute infarct. The findings appear to be unchanged compared to the prior MRI. There is some mass effect with midline shift in the posterior fossa and compression of the 4th ventricle. There is no associated hydrocephalus Chest X-Ray 01/11/19 04:43 IMPRESSION: Right hilar prominence. Mild venous congestion. Cardiomegaly. 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 An MRI conducted showed acute CVA in the inferior left cerebellar hemisphere with edema and mass effect. 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 - was intubated and sedated on propofol -neurosurgery offered neurosurgical intervention w/ explanation of risks/benefits - the family has refused; neurosurgery recommends continued aggressive medical tx and if no improvement in 48 hrs then palliative care -aspirin 600mg rc qd, mannitol 25% 100ml iv q6h, decadron 4mg ivp q6, 1/2NS 50cc/hr, keppra 500mg ivpb q12 -plavix not able to be given rc, hold plavix for now -zofran 4mg ivp q4h prn for nausea -allow permissive HTN -lipid panel shows triglycerides of 200 otherwise normal -echo 01/10/19: EF 55%, mod to severe pulm HTN, no thrombus or vegetation noted, mild concentric LV hypertrophy -MRI 01/10/19: * acute CVA in the inferior left cerebellar hemisphere with edema and mass effect -CTA head/neck 01/10/19: * unremarkable -CT head w/o contrast 01/09/19: * Age-appropriate age related neuro degenerative findings are identified as discussed above. Examination not dramatically changed compared prior brain MRI 07/18/2014. No definite acute findings as per standard CT criteria. -CT head w/o contrast 01/11/19: diffuse swelling of left cerebellar hemisphere consistent w/ an acute infarct, the findings appear to be unchanged compared to prior MRI, there is some mass effect w/ midline shift in posterior fossa and compression of 4th ventricle, no associated hydrocephalus -f/u CT head for tomorrow morning -if improvement, swallow eval and treat, physical therapy eval and treat -high fall risk protocol, neuro checks q2h, aspiration precautions -palliative consulted, Mrs Markham -neurology consulted, Dr Ernst -neurosurgery consulted, Dr Cornejo GI #concern for coffee ground emesis -protonix 40mg ivp bid -seen by GI, Dr Paniagua -Per GI, no present concern for GI bleeding - patient is OK to start anticoagulation for atrial fibrillation -GI has signed off as persistent nausea/vomiting likely due to acute stroke Cardiovascular #Afib, Rate controlled -lopressor 5mg ivp q6h prn for rate control -currently holding home toprol 100mg po qd and amlodipine 10mg po qd -cardiology consulted, Dr Hilton Endocrine #DM2 -Hgba1c 7.0 -accuchecks achs -insulin sliding scale - low dose protocol -holding home metformin Infectious Disease -afebrile -no active ID issues PPx: protonix 40mg ivp bid; no AO for fear of hemorrhagic conversion Seen and discussed with Dr Flanagan <Schuyler Flanagan - Last Filed: 01/11/19 13:17> CCU Objective - Vital Signs / Intake & Output Vital Signs (Last 4 hours): Vital Signs Pulse BP 01/11/19 12:01 84 202/93 H 01/11/19 12:00 93 H 01/11/19 11:50 84 01/11/19 11:49 83 195/100 H 01/11/19 11:40 94 H 01/11/19 11:30 90 202/92 H 01/11/19 11:20 84 01/11/19 11:10 81 01/11/19 11:00 93 H 194/113 H 01/11/19 10:50 85 01/11/19 10:40 81 01/11/19 10:30 79 191/103 H 01/11/19 10:20 93 H 01/11/19 10:10 90 01/11/19 10:00 82 180/101 H 01/11/19 09:50 77 01/11/19 09:40 90 01/11/19 09:30 88 206/102 H 01/11/19 09:20 88 Intake and Output (Last 8hrs): Intake & Output 01/10/19 01/11/19 01/11/19 22:59 06:59 14:59 Intake Total 700 Output Total 750 Balance -50 Weight 166 lb 11.2 oz Intake: IV 700 Bilateral Wrist 700 Oral 0 Output: Urine 750 Urethral (Angelo) 750 Other: # Bowel Movements 0 - Medications Active Medications: Active Medications Generic Name Dose Route Start Last Admin Trade Name Freq PRN Reason Stop Dose Admin Amlodipine Besylate 10 mg 01/09/19 10:00 01/10/19 10:20 Norvasc PO Not Given DAILY BECCA Aspirin 600 mg 01/10/19 14:45 01/10/19 14:40 Aspirin Supp RC 600 mg DAILY BECCA Administration Atorvastatin Calcium 10 mg 01/09/19 10:00 01/10/19 10:21 Lipitor PO Not Given QAM BECCA Dexamethasone 4 mg 01/11/19 12:00 01/11/19 12:18 Decadron Inj IVP 4 mg Q6 BECCA Administration Sodium Chloride 1,000 mls @ 50 mls/hr 01/10/19 15:45 01/11/19 12:38 Sodium Chloride 0.45% IV 50 mls/hr .Q20H BECCA Administration Levetiracetam 500 mg in 100 mls @ 200 mls/hr 01/11/19 10:00 01/11/19 10:00 Keppra 500mg Ivpb IVPB 200 mls/hr Q12 BECCA Administration Propofol 1,000 mg in 100 mls @ 2.286 mls/hr 01/11/19 04:43 01/11/19 05:00 Diprivan IV 5 mcg/kg/min .Q24H PRN 2.286 mls/hr TITRATE PER MD ORDER Administration Protocol 5 MCG/KG/MIN Mannitol 25 gm/ IV SUPPLIES 100 mls @ 100 mls/hr 01/11/19 12:22 01/11/19 12:42 IV 100 mls/hr Q6H BECCA Administration Insulin Human Regular 0 units 01/09/19 07:30 01/11/19 12:41 Humulin R Low SC 2 units ACHS BECCA Administration Protocol Meclizine HCl 25 mg 01/09/19 06:30 01/10/19 15:22 Antivert PO Not Given Q6H BECCA Metoprolol Succinate 100 mg 01/09/19 11:00 01/10/19 10:21 Toprol Xl PO Not Given BRK BECCA Ondansetron HCl 4 mg 01/09/19 08:44 01/10/19 10:19 Zofran Inj IVP 4 mg Q4H PRN Administration Nausea/Vomiting Pantoprazole Sodium 40 mg 01/11/19 10:00 01/11/19 12:26 Protonix Inj IVP 40 mg DAILY BECCA Administration - Patient Studies Lab Studies: Lab Studies 01/11/19 01/11/19 01/11/19 Range/Units 08:15 07:38 05:30 WBC (4.5-11.0) 10^3/uL RBC (3.5-6.1) 10^6/uL Hgb (12.0-16.0) g/dL Hct (36.0-48.0) % MCV (80.0-105.0) fl MCH (25.0-35.0) pg MCHC (31.0-37.0) g/dl RDW (11.5-14.5) % Plt Count (120.0-450.0) 10^3/uL MPV (7.0-11.0) fl Neut % (Auto) (50.0-68.0) % Lymph % (Auto) (22.0-35.0) % [place] % (Auto) (1.0-6.0) % Eos % (Auto) (1.5-5.0) % Baso % (Auto) (0.0-3.0) % Lymph # (Auto) (1.2-3.4) [place] # (Auto) (0.1-0.6) Eos # (Auto) (0.0-0.7) Baso # (Auto) (0.0-2.0) K/mm3 Absolute Neuts (auto) (1.4-6.5) PT 12.8 H (9.4-12.5) SECONDS INR 1.13 APTT 32.8 (26.9-38.3) Seconds pCO2 (35-45) mm/Hg pO2 (80-100) mm/Hg HCO3 (21-28) mmol/L ABG pH (7.35-7.45) ABG Total CO2 (22-28) mmol.L ABG O2 Saturation (95-98) % ABG O2 Content (15-23) ML/dl ABG Base Excess (-2.0-3.0) mmol/L ABG Hemoglobin (11.7-17.4) g/dL ABG Carboxyhemoglobin (0.5-1.5) % POC ABG HHb (Measured) (0-5) % ABG Methemoglobin (0.0-3.0) % ABG O2 Capacity (16-24) mL/dl Hgb O2 Saturation (95.0-98.0) % FiO2 % Sodium (132-148) mmol/L Potassium (3.6-5.0) mmol/L Chloride (98-107) mmol/L Carbon Dioxide (21-33) mmol/L Anion Gap (10-20) BUN (7-21) mg/dL Creatinine (0.7-1.2) mg/dl Est GFR ( Amer) Est GFR (Non-Af Amer) POC Glucose (mg/dL) 198 H (65-110) mg/dL Random Glucose (70-110) mg/dL Hemoglobin A1c 7.0 H (4.2-6.5) % Calcium (8.4-10.5) mg/dL Phosphorus (2.5-4.5) mg/dL Magnesium (1.7-2.2) mg/dL Total Bilirubin (0.2-1.3) mg/dL AST (14-36) U/L ALT (7-56) U/L Alkaline Phosphatase (38-126) U/L Total Protein (5.8-8.3) g/dL Albumin (3.0-4.8) g/dL Globulin gm/dL Albumin/Globulin Ratio (1.1-1.8) Triglycerides (35-160) mg/dL Cholesterol (130-200) mg/dL LDL Cholesterol Direct (0-129) mg/dL HDL Cholesterol (29-60) mg/dL TSH 3rd Generation (0.46-4.68) mIU/mL 01/11/19 01/11/19 01/11/19 Range/Units 05:30 05:30 05:30 WBC 12.0 H (4.5-11.0) 10^3/uL RBC 4.77 (3.5-6.1) 10^6/uL Hgb 14.7 (12.0-16.0) g/dL Hct 44.0 (36.0-48.0) % MCV 92.2 (80.0-105.0) fl MCH 30.8 (25.0-35.0) pg MCHC 33.4 (31.0-37.0) g/dl RDW 14.1 (11.5-14.5) % Plt Count 160 (120.0-450.0) 10^3/uL MPV 10.6 (7.0-11.0) fl Neut % (Auto) 90.5 H (50.0-68.0) % Lymph % (Auto) 4.6 L (22.0-35.0) % [place] % (Auto) 4.8 (1.0-6.0) % Eos % (Auto) 0.0 L (1.5-5.0) % Baso % (Auto) 0.1 (0.0-3.0) % Lymph # (Auto) 0.6 L (1.2-3.4) [place] # (Auto) 0.6 (0.1-0.6) Eos # (Auto) 0.0 (0.0-0.7) Baso # (Auto) 0.01 (0.0-2.0) K/mm3 Absolute Neuts (auto) 10.89 H (1.4-6.5) PT (9.4-12.5) SECONDS INR APTT (26.9-38.3) Seconds pCO2 (35-45) mm/Hg pO2 (80-100) mm/Hg HCO3 (21-28) mmol/L ABG pH (7.35-7.45) ABG Total CO2 (22-28) mmol.L ABG O2 Saturation (95-98) % ABG O2 Content (15-23) ML/dl ABG Base Excess (-2.0-3.0) mmol/L ABG Hemoglobin (11.7-17.4) g/dL ABG Carboxyhemoglobin (0.5-1.5) % POC ABG HHb (Measured) (0-5) % ABG Methemoglobin (0.0-3.0) % ABG O2 Capacity (16-24) mL/dl Hgb O2 Saturation (95.0-98.0) % FiO2 % Sodium 138 (132-148) mmol/L Potassium 3.8 (3.6-5.0) mmol/L Chloride 101 (98-107) mmol/L Carbon Dioxide 26 (21-33) mmol/L Anion Gap 15 (10-20) BUN 16 (7-21) mg/dL Creatinine 0.7 (0.7-1.2) mg/dl Est GFR ( Amer) > 60 Est GFR (Non-Af Amer) > 60 POC Glucose (mg/dL) (65-110) mg/dL Random Glucose 222 H (70-110) mg/dL Hemoglobin A1c (4.2-6.5) % Calcium 8.3 L (8.4-10.5) mg/dL Phosphorus 2.3 L (2.5-4.5) mg/dL Magnesium 2.3 H (1.7-2.2) mg/dL Total Bilirubin 0.7 (0.2-1.3) mg/dL AST 32 (14-36) U/L ALT 14 (7-56) U/L Alkaline Phosphatase 59 (38-126) U/L Total Protein 7.3 (5.8-8.3) g/dL Albumin 3.9 (3.0-4.8) g/dL Globulin 3.4 gm/dL Albumin/Globulin Ratio 1.1 (1.1-1.8) Triglycerides 253 H (35-160) mg/dL Cholesterol 143 (130-200) mg/dL LDL Cholesterol Direct 91 (0-129) mg/dL HDL Cholesterol 38 (29-60) mg/dL TSH 3rd Generation 0.69 (0.46-4.68) mIU/mL 01/11/19 01/11/19 01/10/19 Range/Units 05:25 00:20 21:43 WBC (4.5-11.0) 10^3/uL RBC (3.5-6.1) 10^6/uL Hgb (12.0-16.0) g/dL Hct (36.0-48.0) % MCV (80.0-105.0) fl MCH (25.0-35.0) pg MCHC (31.0-37.0) g/dl RDW (11.5-14.5) % Plt Count (120.0-450.0) 10^3/uL MPV (7.0-11.0) fl Neut % (Auto) (50.0-68.0) % Lymph % (Auto) (22.0-35.0) % [place] % (Auto) (1.0-6.0) % Eos % (Auto) (1.5-5.0) % Baso % (Auto) (0.0-3.0) % Lymph # (Auto) (1.2-3.4) [place] # (Auto) (0.1-0.6) Eos # (Auto) (0.0-0.7) Baso # (Auto) (0.0-2.0) K/mm3 Absolute Neuts (auto) (1.4-6.5) PT (9.4-12.5) SECONDS INR APTT (26.9-38.3) Seconds pCO2 38 (35-45) mm/Hg pO2 498.0 H (80-100) mm/Hg HCO3 24.1 (21-28) mmol/L ABG pH 7.41 (7.35-7.45) ABG Total CO2 25.3 (22-28) mmol.L ABG O2 Saturation 100.0 H (95-98) % ABG O2 Content 21.8 (15-23) ML/dl ABG Base Excess -0.3 (-2.0-3.0) mmol/L ABG Hemoglobin 15.0 (11.7-17.4) g/dL ABG Carboxyhemoglobin 1.6 H (0.5-1.5) % POC ABG HHb (Measured) 0 (0-5) % ABG Methemoglobin 1.2 (0.0-3.0) % ABG O2 Capacity 21.8 (16-24) mL/dl Hgb O2 Saturation 97.2 (95.0-98.0) % FiO2 100.0 % Sodium 136 (132-148) mmol/L Potassium 3.5 L (3.6-5.0) mmol/L Chloride 100 (98-107) mmol/L Carbon Dioxide 27 (21-33) mmol/L Anion Gap 13 (10-20) BUN 15 (7-21) mg/dL Creatinine 0.6 L (0.7-1.2) mg/dl Est GFR ( Amer) > 60 Est GFR (Non-Af Amer) > 60 POC Glucose (mg/dL) 158 H (65-110) mg/dL Random Glucose 192 H (70-110) mg/dL Hemoglobin A1c (4.2-6.5) % Calcium 8.4 (8.4-10.5) mg/dL Phosphorus (2.5-4.5) mg/dL Magnesium (1.7-2.2) mg/dL Total Bilirubin (0.2-1.3) mg/dL AST (14-36) U/L ALT (7-56) U/L Alkaline Phosphatase (38-126) U/L Total Protein (5.8-8.3) g/dL Albumin (3.0-4.8) g/dL Globulin gm/dL Albumin/Globulin Ratio (1.1-1.8) Triglycerides (35-160) mg/dL Cholesterol (130-200) mg/dL LDL Cholesterol Direct (0-129) mg/dL HDL Cholesterol (29-60) mg/dL TSH 3rd Generation (0.46-4.68) mIU/mL 01/10/19 01/10/19 Range/Units 19:15 16:33 WBC (4.5-11.0) 10^3/uL RBC (3.5-6.1) 10^6/uL Hgb (12.0-16.0) g/dL Hct (36.0-48.0) % MCV (80.0-105.0) fl MCH (25.0-35.0) pg MCHC (31.0-37.0) g/dl RDW (11.5-14.5) % Plt Count (120.0-450.0) 10^3/uL MPV (7.0-11.0) fl Neut % (Auto) (50.0-68.0) % Lymph % (Auto) (22.0-35.0) % [place] % (Auto) (1.0-6.0) % Eos % (Auto) (1.5-5.0) % Baso % (Auto) (0.0-3.0) % Lymph # (Auto) (1.2-3.4) [place] # (Auto) (0.1-0.6) Eos # (Auto) (0.0-0.7) Baso # (Auto) (0.0-2.0) K/mm3 Absolute Neuts (auto) (1.4-6.5) PT (9.4-12.5) SECONDS INR APTT (26.9-38.3) Seconds pCO2 (35-45) mm/Hg pO2 (80-100) mm/Hg HCO3 (21-28) mmol/L ABG pH (7.35-7.45) ABG Total CO2 (22-28) mmol.L ABG O2 Saturation (95-98) % ABG O2 Content (15-23) ML/dl ABG Base Excess (-2.0-3.0) mmol/L ABG Hemoglobin (11.7-17.4) g/dL ABG Carboxyhemoglobin (0.5-1.5) % POC ABG HHb (Measured) (0-5) % ABG Methemoglobin (0.0-3.0) % ABG O2 Capacity (16-24) mL/dl Hgb O2 Saturation (95.0-98.0) % FiO2 % Sodium 138 (132-148) mmol/L Potassium 3.7 (3.6-5.0) mmol/L Chloride 101 (98-107) mmol/L Carbon Dioxide 26 (21-33) mmol/L Anion Gap 15 (10-20) BUN 15 (7-21) mg/dL Creatinine 0.6 L (0.7-1.2) mg/dl Est GFR ( Amer) > 60 Est GFR (Non-Af Amer) > 60 POC Glucose (mg/dL) 181 H (65-110) mg/dL Random Glucose 169 H (70-110) mg/dL Hemoglobin A1c (4.2-6.5) % Calcium 8.6 (8.4-10.5) mg/dL Phosphorus (2.5-4.5) mg/dL Magnesium (1.7-2.2) mg/dL Total Bilirubin (0.2-1.3) mg/dL AST (14-36) U/L ALT (7-56) U/L Alkaline Phosphatase (38-126) U/L Total Protein (5.8-8.3) g/dL Albumin (3.0-4.8) g/dL Globulin gm/dL Albumin/Globulin Ratio (1.1-1.8) Triglycerides (35-160) mg/dL Cholesterol (130-200) mg/dL LDL Cholesterol Direct (0-129) mg/dL HDL Cholesterol (29-60) mg/dL TSH 3rd Generation (0.46-4.68) mIU/mL Laboratory Results - last 24 hr 01/10/19 01/10/19 01/10/19 16:33 19:15 21:43 WBC RBC Hgb Hct MCV MCH MCHC RDW Plt Count MPV Neut % (Auto) Lymph % (Auto) [place] % (Auto) Eos % (Auto) Baso % (Auto) Lymph # (Auto) [place] # (Auto) Eos # (Auto) Baso # (Auto) Absolute Neuts (auto) PT INR APTT pCO2 pO2 HCO3 ABG pH ABG Total CO2 ABG O2 Saturation ABG O2 Content ABG Base Excess ABG Hemoglobin ABG Carboxyhemoglobin POC ABG HHb (Measured) ABG Methemoglobin ABG O2 Capacity Hgb O2 Saturation FiO2 Sodium 138 Potassium 3.7 Chloride 101 Carbon Dioxide 26 Anion Gap 15 BUN 15 Creatinine 0.6 L Est GFR ( Amer) > 60 Est GFR (Non-Af Amer) > 60 POC Glucose (mg/dL) 181 H 158 H Random Glucose 169 H Hemoglobin A1c Calcium 8.6 Phosphorus Magnesium Total Bilirubin AST ALT Alkaline Phosphatase Total Protein Albumin Globulin Albumin/Globulin Ratio Triglycerides Cholesterol LDL Cholesterol Direct HDL Cholesterol TSH 3rd Generation 01/11/19 01/11/19 01/11/19 00:20 05:25 05:30 WBC RBC Hgb Hct MCV MCH MCHC RDW Plt Count MPV Neut % (Auto) Lymph % (Auto) [place] % (Auto) Eos % (Auto) Baso % (Auto) Lymph # (Auto) [place] # (Auto) Eos # (Auto) Baso # (Auto) Absolute Neuts (auto) PT INR APTT pCO2 38 pO2 498.0 H HCO3 24.1 ABG pH 7.41 ABG Total CO2 25.3 ABG O2 Saturation 100.0 H ABG O2 Content 21.8 ABG Base Excess -0.3 ABG Hemoglobin 15.0 ABG Carboxyhemoglobin 1.6 H POC ABG HHb (Measured) 0 ABG Methemoglobin 1.2 ABG O2 Capacity 21.8 Hgb O2 Saturation 97.2 FiO2 100.0 Sodium 136 138 Potassium 3.5 L 3.8 Chloride 100 101 Carbon Dioxide 27 26 Anion Gap 13 15 BUN 15 16 Creatinine 0.6 L 0.7 Est GFR ( Amer) > 60 > 60 Est GFR (Non-Af Amer) > 60 > 60 POC Glucose (mg/dL) Random Glucose 192 H 222 H Hemoglobin A1c Calcium 8.4 8.3 L Phosphorus 2.3 L Magnesium 2.3 H Total Bilirubin 0.7 AST 32 ALT 14 Alkaline Phosphatase 59 Total Protein 7.3 Albumin 3.9 Globulin 3.4 Albumin/Globulin Ratio 1.1 Triglycerides 253 H Cholesterol 143 LDL Cholesterol Direct 91 HDL Cholesterol 38 TSH 3rd Generation 01/11/19 01/11/19 01/11/19 05:30 05:30 05:30 WBC 12.0 H RBC 4.77 Hgb 14.7 Hct 44.0 MCV 92.2 MCH 30.8 MCHC 33.4 RDW 14.1 Plt Count 160 MPV 10.6 Neut % (Auto) 90.5 H Lymph % (Auto) 4.6 L [place] % (Auto) 4.8 Eos % (Auto) 0.0 L Baso % (Auto) 0.1 Lymph # (Auto) 0.6 L [place] # (Auto) 0.6 Eos # (Auto) 0.0 Baso # (Auto) 0.01 Absolute Neuts (auto) 10.89 H PT INR APTT pCO2 pO2 HCO3 ABG pH ABG Total CO2 ABG O2 Saturation ABG O2 Content ABG Base Excess ABG Hemoglobin ABG Carboxyhemoglobin POC ABG HHb (Measured) ABG Methemoglobin ABG O2 Capacity Hgb O2 Saturation FiO2 Sodium Potassium Chloride Carbon Dioxide Anion Gap BUN Creatinine Est GFR ( Amer) Est GFR (Non-Af Amer) POC Glucose (mg/dL) Random Glucose Hemoglobin A1c 7.0 H Calcium Phosphorus Magnesium Total Bilirubin AST ALT Alkaline Phosphatase Total Protein Albumin Globulin Albumin/Globulin Ratio Triglycerides Cholesterol LDL Cholesterol Direct HDL Cholesterol TSH 3rd Generation 0.69 01/11/19 01/11/19 07:38 08:15 WBC RBC Hgb Hct MCV MCH MCHC RDW Plt Count MPV Neut % (Auto) Lymph % (Auto) [place] % (Auto) Eos % (Auto) Baso % (Auto) Lymph # (Auto) [place] # (Auto) Eos # (Auto) Baso # (Auto) Absolute Neuts (auto) PT 12.8 H INR 1.13 APTT 32.8 pCO2 pO2 HCO3 ABG pH ABG Total CO2 ABG O2 Saturation ABG O2 Content ABG Base Excess ABG Hemoglobin ABG Carboxyhemoglobin POC ABG HHb (Measured) ABG Methemoglobin ABG O2 Capacity Hgb O2 Saturation FiO2 Sodium Potassium Chloride Carbon Dioxide Anion Gap BUN Creatinine Est GFR ( Amer) Est GFR (Non-Af Amer) POC Glucose (mg/dL) 198 H Random Glucose Hemoglobin A1c Calcium Phosphorus Magnesium Total Bilirubin AST ALT Alkaline Phosphatase Total Protein Albumin Globulin Albumin/Globulin Ratio Triglycerides Cholesterol LDL Cholesterol Direct HDL Cholesterol TSH 3rd Generation Radiology Impressions: Radiology Impressions Brain MRI 01/10/19 10:45 IMPRESSION: There is an acute infarct in the inferior left cerebellar hemisphere in the distribution of the posterior inferior cerebellar artery. This also involves the left cerebellar tonsil. There is associated edema and mass effect with swelling of the left cerebellar hemisphere. There is no evidence of herniation. Head CT 01/11/19 02:40 IMPRESSION: There is diffuse swelling of the left cerebellar hemisphere consistent with an acute infarct. The findings appear to be unchanged compared to the prior MRI. There is some mass effect with midline shift in the posterior fossa and compression of the 4th ventricle. There is no associated hydrocephalus Chest X-Ray 01/11/19 04:43 IMPRESSION: Right hilar prominence. Mild venous congestion. Cardiomegaly. Critical Care Progress Note - Nutrition Nutrition: Nutrition Category Date Time Status NPO Diet [DIET] Diets 01/10/19 Lunch Ordered Assessment/Plan - Assessment and Plan (Free Text) Plan: I saw and examined the patient on rounds with resident, agree with note with following additions/exceptions: Patient is 83 year old female with a PMHx of Afib (not on anticoagulation), CAD s/p BM LAD stent on ASA/plavix, hx CVA w/minimal R sided deficits (10+ yrs ago), uncontrolled HTN, HLD, DM2, R breast ca s/p lumpectomy, obesity, who presented to the ED on 01/09/19 with complaints of sudden onset dizziness, nausea. An MRI conducted showed acute CVA in the inferior left cerebellar hemisphere with edema and mass effect. Patient transferred to MICU, started on Mannitol, Decadron as per neurology. After an extensive discussion by NSG Dr Cornejo, myself, the family opted against surgical intervention after risks and benefits and clinical scenarios fully explained in great detail. Currently intubated, OFF sedation, withdrawing left side to pain Acute CVA Afib not on AC CAD HTN HLD Hx breast Ca Recommend: - cont with vent support, low tidal vol ventilation, daily ABG, CXR, sedation vacation - NO ID issues - BP control - Decadron, Mannitol - q1hr neuro checks - follow up neurology - check serum osm - ASA, Plavix - Statin - palliative care consult - GI ppx - DVT ppx - monitor in MICU Critical care time 40 minutes Patient at high risk for morbidity and mortality
[2019-01-11] MEDS: Dexamethasone 4 mg/1 ml IVP SCH ×2 (12:18→19:48)
--- NOTE | 2019-01-11 12:23 | CON ---
DATE: 01/10/2019 Neurology consult called by Dr. Rebeca Gonzales. HISTORY OF PRESENT ILLNESS: The patient is an 83-year-old [place] woman with past medical history of AFib, CAD, status post LAD stent, history of stroke with right-sided weakness 10 years ago, hypertension, hyperlipidemia, diabetes type 2, right breast CA status post lumpectomy, who presented to the emergency room with complaints of dizziness, nausea, and nonbloody nonbilious clear vomiting that started on 01/08/2019 evening. The patient presented yesterday at 9:00 in the morning. It was noted that she was normally able to walk around without a cane and had dizziness only yesterday evening. There was no seizure. There was . There was no weakness. Today morning, the patient was seen and after review of the MRI, it was noted that the MRI showed an acute left vermian and cerebellar infarct, embolic in nature. REVIEW OF SYSTEMS: For the patient on my exam today was not accurate due to the patient's mental status. PAST MEDICAL HISTORY: AFib, CAD, status post CABG 2017, history of stroke as above. PAST SURGICAL HISTORY: Cholecystectomy, breast CA, status post lumpectomy, bilateral TKA 20 years ago at [place]. SOCIAL HISTORY: No tobacco, no alcohol, and no drug use. Lives with family. FAMILY HISTORY: Mother and father ; had no medical problems. ALLERGIES: NO KNOWN DRUG ALLERGIES. PHYSICAL EXAMINATION: GENERAL: The patient is awake. She follows three-step commands. NEUROLOGIC: Pupils are 2 mm to 3 mm with light. There is upward nystagmus throughout the left upper quadrant. There is no ptosis. There is no miosis. There is no facial asymmetry. The patient's speech is fluent. She is, however, somewhat lethargic in nature. She is able to tell me her name and where she is, but she does not know the date. There is right-sided weakness, it is 4/5, left is 5/5. There is neglect of the left upper and lower limbs. Strength in the right arm is 4+/5. Strength in the left arm is weak; however, I believe this is due to neglect. Sensory exam is not accurate. Reflexes are +2 in upper and lower limbs bilaterally. LABORATORY DATA: Labs as follows: White count 9.9, hemoglobin 15.9, hematocrit 47.4, and platelets 186. Sodium 142, potassium 3, BUN 12, creatinine 0.7, and glucose 220. CAT scan of the head was reviewed by myself and the radiologist and agreed as it is normal with some atrophy. MRI of the brain done today at 11:00 in the morning shows the following: Acute infarct in the inferior left cerebellar hemisphere and vermis involving left cerebellar tonsil with edema and mass like swelling in the left cerebellar hemisphere and no evidence of herniation. In addition, there is chronic acute lacunar infarct in the left side of the nuris. CTA of the head and neck was done and is normal with no occlusion or atherosclerosis. NIH stroke scale was approximately 15. IMPRESSION: This is an 83-year-old woman with acute left posterior-inferior cerebellar artery infarct, most likely secondary to thrombosis. NIH stroke scale was approximately 15 PLAN: 1. Send her to ICU. 2. Neuro check every [address] of the head in the morning. 4. Mannitol IV immediately. 5. Head of the bed elevated at 30 degrees. 6. Echo. 7. PT, ST, OT. 8. Lipid profile. Case and plan was discussed with Angela and Christian. Jennifer Ernst MD MTDD
[2019-01-11] MEDS: Sodium Chloride 0.45% 1,000 ML IV SCH (12:38)
--- NOTE | 2019-01-11 13:59 | CP.PCM.PCO ---
Additional Comments - Additional Comments Additional Comments: Pt. with left large cerebellar infarct, with midline shift, herniation Intubated, vented, on Keppra 500 mg IV q12, on Keppra 500 mg IV q12 Repeat Head CT pending for tommorow PT eval pending. Further recs per Neuro and Neurosurgery. Will continue to monitor clinical status and follow closely cont medical treatment as per Neuro and Neurosurgery.
--- NOTE | 2019-01-11 14:04 | CP.PCM.PN ---
Subjective - Date & Time of Evaluation Date of Evaluation: 01/11/19 Time of Evaluation: 06:10 Objective - Vital Signs/Intake and Output Vital Signs (last 24 hours): Temp Pulse Resp BP Pulse Ox 98.6 F 84 21 202/93 H 87 L 01/11/19 06:00 01/11/19 12:01 01/11/19 04:48 01/11/19 12:01 01/11/19 05:00 Intake and Output: 01/11/19 01/11/19 06:59 18:59 Intake Total 700 Output Total 750 Balance -50 - Medications Medications: Current Medications Amlodipine Besylate (Norvasc) 10 mg PO DAILY [facility] Last Admin: 01/10/19 10:20 Dose: Not Given Aspirin (Aspirin Supp) 600 mg RC DAILY [facility] Last Admin: 01/10/19 14:40 Dose: 600 mg Atorvastatin Calcium (Lipitor) 10 mg PO QAM [facility] Last Admin: 01/10/19 10:21 Dose: Not Given Dexamethasone (Decadron Inj) 4 mg IVP Q6 [facility] Last Admin: 01/11/19 12:18 Dose: 4 mg Sodium Chloride (Sodium Chloride 0.45%) 1,000 mls @ 50 mls/hr IV .Q20H [facility] Last Admin: 01/11/19 12:38 Dose: 50 mls/hr Levetiracetam (Keppra 500mg Ivpb) 500 mg in 100 mls @ 200 mls/hr IVPB Q12 [facility] Last Admin: 01/11/19 10:00 Dose: 200 mls/hr Propofol (Diprivan) 1,000 mg in 100 mls @ 2.286 mls/hr IV .Q24H PRN; Protocol PRN Reason: TITRATE PER MD ORDER Last Admin: 01/11/19 05:00 Dose: 5 mcg/kg/min, 2.286 mls/hr Mannitol 25 gm/ IV SUPPLIES 100 mls @ 100 mls/hr IV Q6H [facility] Last Admin: 01/11/19 12:42 Dose: 100 mls/hr Insulin Human Regular (Humulin R Low) 0 units SC ACHS [facility]; Protocol Last Admin: 01/11/19 12:41 Dose: 2 units Meclizine HCl (Antivert) 25 mg PO Q6H [facility] Last Admin: 01/10/19 15:22 Dose: Not Given Metoprolol Succinate (Toprol Xl) 100 mg PO BRK [facility] Last Admin: 01/10/19 10:21 Dose: Not Given Ondansetron HCl (Zofran Inj) 4 mg IVP Q4H PRN PRN Reason: Nausea/Vomiting Last Admin: 01/10/19 10:19 Dose: 4 mg Pantoprazole Sodium (Protonix Inj) 40 mg IVP DAILY [facility] Last Admin: 01/11/19 12:26 Dose: 40 mg - Labs Labs: 01/11/19 05:30 01/11/19 05:30 PT 12.8 SECONDS (9.4-12.5) H 01/11/19 08:15 INR 1.13 01/11/19 08:15 APTT 32.8 Seconds (26.9-38.3) 01/11/19 08:15
--- NOTE | 2019-01-11 14:58 | PN ---
DATE: 01/11/2019 REASON FOR CONSULTATION AND FOLLOWUP: History of coronary artery disease admitted with dizziness, history of atrial fibrillation, admitted with acute cerebrovascular accident, acute infarct in cerebral hemisphere, also involves cerebellar tonsils associated with edema and mass effect and swelling of the brain in the left hemisphere status post respiratory failure, intubated. SUBJECTIVE: The patient remains intubated. Family is at the bedside. PHYSICAL EXAMINATION: As follows: VITAL SIGNS: Temperature afebrile, heart rate 98, blood pressure 197/143. HEENT: PERRLA. Extraocular muscles intact. NECK: Supple. No carotid bruits or thyromegaly. CHEST: Clear to auscultation. HEART: S1 and S2 regular. ABDOMEN: Soft. EXTREMITIES: Clubbing and cyanosis, negative. LABORATORY DATA: Blood workup; WBC 12, hemoglobin 14, hematocrit 44, platelet count 160. Chemistry shows sodium 130, potassium 3.8, chloride 101, carbon dioxide 26, anion gap of 15, BUN 16, creatinine 0.7. IMPRESSION: An 83-year-old female with past medical history significant for atrial fibrillation, coronary artery disease, cerebrovascular accident, diabetes, breast cancer, presented to the emergency room initially with dizziness, altered mental status. MRI of the brain shows acute infarct in the inferior left cerebral hemisphere and distribution of posterior cerebral artery, also involves the left cerebellar tonsil associated with edema and mass effect with swelling of the left brain hemisphere, history of atrial fibrillation, noncompliance with medication, history of bare-metal stent in left anterior descending artery in 04/2018 and was put on bare-metal because the patient was very noncompliant. The patient was suggested to continue Plavix and Eliquis for four weeks and then baby aspirin and Eliquis, the patient apparently was not taking at home. Admitted with dizziness. Workup shows acute stroke, intubated, now has mass effect. Neurosurgery has been consulted. Discussed with the patient's family asking about surgical intervention such that neurosurgeon, Dr. Ferdinand Cornejo will explain the procedure and the length of the procedure. The patient had echo yesterday that shows ejection fraction 55-60%, mild aortic regurgitation, [id number] mitral regurgitation, moderate tricuspid regurgitation, right ventricular systolic pressure 61, [id number] pulmonary hypertension. Overall, the patient's condition is critical. Prognosis is guarded. Clonidine patch is started, but wanted to be permissive hypertension for the acute stroke. Neurology as well as Neurosurgery is on the case. We will monitor closely. Overall, the patient's condition is critical. Long-term prognosis is extremely guarded. We will follow with you. Thank you for providing us the opportunity in taking care of the patient, Adan Cleaning. Jie Hilton MD
--- NOTE | 2019-01-11 17:15 | CON ---
DATE: 01/11/2019 HISTORY OF PRESENT ILLNESS: This is an 83-year-old [place] female with past medical history of AFib, cardiac artery disease status post stent, CVA with some right-sided deficit 10 years ago, hypertension, diabetes, history of breast cancer, and obesity, admitted through the emergency room on 01/09/2019 with complaint of nausea and vomiting. She initially had a CT scan of the head which was essentially negative and was thought she had a TIA. Subsequent CT scans and MRI demonstrated a left cerebellar infarct with left ventricle pio with compressed open and minimal pressure on the brain stem. She was awake and alert until sometime late last night when she started complaining of headache. Her blood pressure spiked to level of 220 systolic. She was given antihypertensive medication; blood pressure dropped, and then she was noted to be much more lethargic and less arousable. Repeat CT scan of the head continued to show the left cerebellar infarct with some mild mass affect on the brain stem and left ventricle. According to my review of the study, there is really is not changed since the day before. MRI study in terms of the infarct and with the mass affect. However, she was rapidly intubated and at this present time, she has comatose with pinpoint pupils. She has corneal oculocephalic. She has on the left and some might purposeful on the right. Based upon her acute demise, she was also given mannitol and Decadron acutely after the mental status change. Based upon these changes and the findings, my initial plan was to perform a left posterior fossa craniectomy and debridement of infarct. I had a very lengthy discussion with the and his approximately five children. We discussed the pros and cons with Surgery versus conservative care. The appeared to be quite adamant that he did not want surgical intervention; the children were mixed. After approximately 30 minutes of their self discussion, they decided that they did not want surgical intervention. We discussed further medical management which they agreed to and at this point, she should be continued on Decadron, mannitol, and hyperventilation. It is also my opinion that if there is no significant change in 48 hours or so, the family should consider palliative care. As time progresses, they become less and less benefit from surgical intervention and at this point since it is relatively close to this time of her demise, we are still in an optimal window. However, as time progresses, I think that we will end up that the benefit of surgery will continue to vain further. If there is anything further that I can do, please do not hesitate to contact me. If the family needs further discussion, I will be happy to talk to them again. Ferdinand Cornejo MD
[2019-01-12] MEDS: Insulin Reg-LOW-Coverage SC SCH ×3 (00:32→12:06)
[2019-01-12] MEDS: Dexamethasone 4 mg/1 ml IVP SCH ×3 (00:33→12:06)
[2019-01-12 06:10] LABS: ARTERIAL BLOOD GAS HCO3 24.9 mmol/L (21-28); ARTERIAL BLOOD GAS O2 CAPACITY 22.4 mL/dl (16-24); ARTERIAL BLOOD GAS O2 CONTENT 22.3 ML/dl (15-23); ARTERIAL BLOOD GAS O2 SAT 99.7 % (95-98); ARTERIAL BLOOD GAS PCO2 35 mm/Hg (35-45); ARTERIAL BLOOD GAS PH 7.46 (7.35-7.45)
[2019-01-12 06:25] LABS: LYMPH # 0.7 (1.2-3.4); MEAN CELL VOLUME 92.4 fl (80.0-105.0); MEAN CORPUSCULAR HGB CONC 33.5 g/dl (31.0-37.0); MEAN PLATELET VOLUME 10.2 fl (7.0-11.0); MONO # 0.7 (0.1-0.6); MONO % 3.9 % (1.0-6.0); RBC 5.16 10^6/uL (3.5-6.1); RED CELL DISTRIBUTION WIDTH 14.1 % (11.5-14.5); WHITE BLOOD COUNT 16.7 10^3/uL (4.5-11.0)
[2019-01-12 06:49] LABS: ALB/GLOB RATIO 1.1 (1.1-1.8); ALBUMIN 3.9 g/dL (3.0-4.8); ALT/SGPT 22 U/L (7-56); AST/SGOT 52 U/L (14-36); BLOOD UREA NITROGEN 18 mg/dL (7-21); CALCIUM 8.9 mg/dL (8.4-10.5); GFR NON-AFRICAN AMERICAN > 60
--- NOTE | 2019-01-12 09:42 | CT ---
Date of service: 01/12/2019 PROCEDURE: CT HEAD WITHOUT CONTRAST. HISTORY: f/u cerebellar CVA COMPARISON: 01/11/2019 TECHNIQUE: Axial computed tomography images were obtained through the head/brain without intravenous contrast. Radiation dose: Total exam DLP = 949.75 mGy-cm. This CT exam was performed using one or more of the following dose reduction techniques: Automated exposure control, adjustment of the mA and/or kV according to patient size, and/or use of iterative reconstruction technique. FINDINGS: HEMORRHAGE: No intracranial hemorrhage. BRAIN: There is interval development of global acute infarction involving the entire right cerebral hemisphere with associated significant edema, diffuse effacement of the cortical sulci, local regional mass effect, effacement of the right lateral ventricle and 7 mm midline shift from right to left. There is also mass effect on the right brainstem and subfalcine herniation. There is asymmetric high attenuation in the right middle cerebral artery and M2 branches in the sylvian fissure There are late acute/subacute infarctions in both cerebellar hemispheres, worse on the left with left cerebellar edema, mass effect on the 4th ventricle and developing obstructive hydrocephalus. There are moderate chronic microangiopathic changes. There are coarse atherosclerotic calcifications in the cavernous carotid arteries. VENTRICLES: Redemonstration of mild obstructive hydrocephalus. CALVARIUM: There is no calvarial fracture or extracranial soft tissue swelling. PARANASAL SINUSES: Predominantly clear. MASTOID AIR CELLS: Predominantly clear. OTHER FINDINGS: None. IMPRESSION: 1. Interval development of globe acute infarction in the right cerebral hemisphere with diffuse cerebral edema, mass effect and effacement of the right lateral ventricle and brainstem, 7 mm midline shift from right to left and subfalcine herniation. Acute thrombus is identified in the right middle cerebral artery and M2 branches in the sylvian fissure. 2. Evolving late acute/late subacute bilateral cerebellar hemisphere infarctions, worse on the left with stable obstructive hydrocephalus. Critical findings were discussed with the resident in the CCU on 01/12/2019 at 9:35 a.m.
[2019-01-12] MEDS: levETIRAcetam 500mg IVPB 500 MG/100 ML BAG IVPB SCH (09:45)
--- NOTE | 2019-01-12 11:07 | CP.PCM.PN ---
<Kehinde Ramirez - Last Filed: 01/12/19 14:20> Subjective - Date & Time of Evaluation Date of Evaluation: 01/12/19 Time of Evaluation: 08:00 - Subjective Subjective: Kehinde Ramirez DO, PGY-1 Hospitalist Progress Note for Dr. Iris Gonzales Patient was seen and examined at bedside this AM. On examination this AM, patient is less responsive and pupils are no longer reactive. Family is at bedside. was called and saw patient yesterday evening. Objective - Vital Signs/Intake and Output Vital Signs (last 24 hours): Temp Pulse Resp BP Pulse Ox 98.4 F 85 14 199/103 H 89 L 01/12/19 08:00 01/12/19 10:30 01/12/19 08:50 01/12/19 10:00 01/12/19 10:30 Intake and Output: 01/12/19 01/12/19 06:59 18:59 Intake Total 216 Output Total 700 Balance -484 - Medications Medications: Current Medications Amlodipine Besylate (Norvasc) 10 mg PO DAILY [facility] Last Admin: 01/10/19 10:20 Dose: Not Given Aspirin (Aspirin Supp) 600 mg RC DAILY [facility] Last Admin: 01/11/19 13:59 Dose: 600 mg Atorvastatin Calcium (Lipitor) 10 mg PO QAM [facility] Last Admin: 01/10/19 10:21 Dose: Not Given Dexamethasone (Decadron Inj) 4 mg IVP Q6 [facility] Last Admin: 01/12/19 06:16 Dose: 4 mg Sodium Chloride (Sodium Chloride 0.45%) 1,000 mls @ 50 mls/hr IV .Q20H [facility] Last Admin: 01/11/19 12:38 Dose: 50 mls/hr Levetiracetam (Keppra 500mg Ivpb) 500 mg in 100 mls @ 200 mls/hr IVPB Q12 [facility] Last Admin: 01/12/19 09:45 Dose: 200 mls/hr Propofol (Diprivan) 1,000 mg in 100 mls @ 2.286 mls/hr IV .Q24H PRN; Protocol PRN Reason: TITRATE PER MD ORDER Last Admin: 01/11/19 05:00 Dose: 5 mcg/kg/min, 2.286 mls/hr Mannitol 25 gm/ IV SUPPLIES 100 mls @ 100 mls/hr IV Q6H [facility] Last Admin: 01/12/19 09:04 Dose: 100 mls/hr Insulin Human Regular (Humulin R Low) 0 units SC Q6 [facility]; Protocol Last Admin: 01/12/19 06:16 Dose: 1 unit Meclizine HCl (Antivert) 25 mg PO Q6H [facility] Last Admin: 01/10/19 15:22 Dose: Not Given Metoprolol Succinate (Toprol Xl) 100 mg PO BRK [facility] Last Admin: 01/10/19 10:21 Dose: Not Given Ondansetron HCl (Zofran Inj) 4 mg IVP Q4H PRN PRN Reason: Nausea/Vomiting Last Admin: 01/10/19 10:19 Dose: 4 mg Pantoprazole Sodium (Protonix Inj) 40 mg IVP DAILY [facility] Last Admin: 01/12/19 09:45 Dose: 40 mg - Labs Labs: 01/12/19 05:30 01/12/19 05:30 PT 12.8 SECONDS (9.4-12.5) H 01/11/19 08:15 INR 1.13 01/11/19 08:15 APTT 32.8 Seconds (26.9-38.3) 01/11/19 08:15 - Constitutional Appears: Other (intubated, sedated on ventilator) - Head Exam Head Exam: ATRAUMATIC, NORMOCEPHALIC - Eye Exam Eye Exam: absent: PERRL (pupils not reactive ) Pupil Exam: Fixed. absent: PERRL - ENT Exam Additional comments: ET tube in place - Neck Exam Neck Exam: absent: Lymphadenopathy - Respiratory Exam Respiratory Exam: Clear to Ausculation Bilateral. absent: Rales, Rhonchi Additional comments: patient intubated on ventilator, breath sounds auscultated b/l - Cardiovascular Exam Cardiovascular Exam: Irregular Rhythm (continues to be in AFib). absent: Gallop, Rubs, Murmur - GI/Abdominal Exam GI & Abdominal Exam: Soft, Normal Bowel Sounds - Extremities Exam Extremities Exam: absent: Pedal Edema - Neurological Exam Additional comments: intubated, sedated on ventilator, pupils sluggish and poorly reactive to light, gag and corneal reflexes intact Assessment and Plan - Assessment and Plan (Free Text) Assessment: 83 yo F with PMH of AFib (and non-compliance with eliquis), CAD (s/p PCI), CVA (w/residual R-sided weakness), HTN, HLD, DM2 (last A1c 7.0), and breast CA (s/p lumpectomy) originally presented to ED with a complaint of dizziness, nausea/vomiting, and worsened R-sided weakness/instability. Code stroke was called. She was found to have acute large L cerebellar CVA on initial head CT. Cerebral edema continued to worsen, prompting her immediate intubation and transfer to MICU. Plan: Acute L cerebellar CVA Repeat head CT this AM shows interval development of globe acute infarction in R cerebral hemisphere w/diffuse cerebral edema Patient now has worsened 7 mm midline shift Acute thrombus identified in R MCA and M2 branches in the sylvian fissure These findings are acute with worsened mid-line shift compared to prior head CT and brain MRI Reflexes worsened this AM, consistent with new CT head findings Per neurology, will get video EEG to assess for prognosis at this point Intubation, vent settings per ICU team Continue keppra, decadron, mannitol, ASA RC and hyperventilation per neurology recs Family continues to request no surgical intervention, likely moving toward comfort care Neurology, neurosurgery following, all recs appreciated Coffee ground emesis May be 2/2 [place]icia[place] tear from prior forceful, frequent vomiting Continue protonix Per GI, no role for acute intervention at this time and ok to start anticoag ulation AFib Patient reported being non-complaint with home eliquis May continue HTN Hold home BP meds, allowing for permissive HTN Hx CVA w/residual R-sided weakness Was on ASA monotherapy at home prior May continue ASA RC CAD s/p PCI Continue ASA RC No active issues DM2 Last A1c 7 Continue ISS - low DVT/GI PPX: SCD/protonix Full Code NPO Monitor in MICU Patient seen, examined with, and plan discussed with my attending Dr. Iris Ramirez D.O. IM Resident PGY-1 Pager: [phone] <Rebeca Gonzales - Last Filed: 01/12/19 14:43> Objective - Vital Signs/Intake and Output Vital Signs (last 24 hours): Temp Pulse Resp BP Pulse Ox 98.6 F 95 H 16 214/91 H 100 01/12/19 12:00 01/12/19 12:10 01/12/19 12:00 01/12/19 12:00 01/12/19 12:10 Intake and Output: 01/12/19 01/12/19 06:59 18:59 Intake Total 216 Output Total 700 Balance -484 - Medications Medications: Current Medications Amlodipine Besylate (Norvasc) 10 mg PO DAILY [facility] Last Admin: 01/10/19 10:20 Dose: Not Given Aspirin (Aspirin Supp) 600 mg RC DAILY [facility] Last Admin: 01/12/19 12:07 Dose: 600 mg Atorvastatin Calcium (Lipitor) 10 mg PO QAM [facility] Last Admin: 01/10/19 10:21 Dose: Not Given Dexamethasone (Decadron Inj) 4 mg IVP Q6 [facility] Last Admin: 01/12/19 12:06 Dose: 4 mg Sodium Chloride (Sodium Chloride 0.45%) 1,000 mls @ 50 mls/hr IV .Q20H [facility] Last Admin: 01/11/19 12:38 Dose: 50 mls/hr Levetiracetam (Keppra 500mg Ivpb) 500 mg in 100 mls @ 200 mls/hr IVPB Q12 [facility] Last Admin: 01/12/19 09:45 Dose: 200 mls/hr Propofol (Diprivan) 1,000 mg in 100 mls @ 2.286 mls/hr IV .Q24H PRN; Protocol PRN Reason: TITRATE PER MD ORDER Last Admin: 01/11/19 05:00 Dose: 5 mcg/kg/min, 2.286 mls/hr Mannitol 25 gm/ IV SUPPLIES 100 mls @ 100 mls/hr IV Q6H [facility] Last Admin: 01/12/19 14:21 Dose: 100 mls/hr Insulin Human Regular (Humulin R Low) 0 units SC Q6 [facility]; Protocol Last Admin: 01/12/19 12:06 Dose: 1 unit Meclizine HCl (Antivert) 25 mg PO Q6H [facility] Last Admin: 01/10/19 15:22 Dose: Not Given Metoprolol Succinate (Toprol Xl) 100 mg PO BRK [facility] Last Admin: 01/10/19 10:21 Dose: Not Given Ondansetron HCl (Zofran Inj) 4 mg IVP Q4H PRN PRN Reason: Nausea/Vomiting Last Admin: 01/10/19 10:19 Dose: 4 mg Pantoprazole Sodium (Protonix Inj) 40 mg IVP DAILY [facility] Last Admin: 01/12/19 09:45 Dose: 40 mg - Labs Labs: 01/12/19 05:30 01/12/19 05:30 PT 12.8 SECONDS (9.4-12.5) H 01/11/19 08:15 INR 1.13 01/11/19 08:15 APTT 32.8 Seconds (26.9-38.3) 01/11/19 08:15 Attending/Attestation - Attestation I have personally seen and examined this patient.: Yes I have fully participated in the care of the patient.: Yes I have reviewed all pertinent clinical information, including history, physical exam and plan: Yes Notes (Text): Patient seen and examined by me with resident at approximately 8:20AM on 01/12/19. Case including HPI, physical exam, and assessment and plan discussed with resident. Agree with above with following additions/corrections. Patient is an 83-year-old female with past medical history significant for atrial fibrillation, coronary artery disease status post bare metal stent pl acement, CVA with mild right-sided weakness, hypertension, hyperlipidemia, type 2 diabetes, right breast cancer status post lumpectomy, and dizziness to presented to the emergency room with complaints of dizziness, nausea, and vomiting. Patient intubated. Off sedation. Family at bedside. Patient is not opening eyes. Not moving right side today. Patient is afebrile. Physical exam: General: Intubated. Not responsive. HEENT: Patient is not opening eyes. Pupils fixed but not dialated. ET tube in p lace. Cardiovascular: Irregularly irregular rhythm. No murmurs, rubs, or gallops appreciated Pulmonary: Vent sounds heard throughout. No rhonci, rales, or wheezing appreciated. Auscultated anteriorly. Gastrointestinal: Soft, nondistended. Positive bowel sounds all 4 quadrants. No guarding. Musculoskeletal: Not moving extremities. No edema appreciated. Central nervous system: Intubated. Not responsive. Dermatologic: Skin warm and dry. Assessment and plan: Patient is an 83-year-old female with past medical history significant for atrial fibrillation, coronary artery disease status post bare metal stent placement, CVA with mild right-sided weakness, hypertension, hyperlipidemia, type 2 diabetes, right breast cancer status post lumpectomy, and dizziness to presented to the emergency room with complaints of dizziness, nausea, and vomiting. 1. Acute large left cerebellar CVA. Patient intubated, vent settings as per ICU. Continue Keppra. Continue Decadron and mannitol. Neurology recommendations appreciated. Neurosurgery recommendations appreciated. Patient's family refused surgical intervention. Continue aspirin rectally. CT brain this AM per radiologist showed intervertebral development of global acute infarction in the right cerebral hemisphere with diffuse cerebral edema, mass effect, and effacement of the right lateral ventricle and brainstem; 7 mm midline shift from right to left and subfalcine herniation; acute thrombus identified in the right middle cerebral artery and M2 branches and sylvian fissure; evolving late acute/late subacute bilateral cerebral hemisphere infarctions, worse on the left with stable obstructive hydrocephalus. Results discussed wtih family. All questions answered. MRI brain per radiologist showed an acute infarct in the inferior left cerebellar hemisphere in the distribution of the posterior inferior cerebellar artery, also involves to left cerebellar tonsil, associated edema and mass effect with swelling of the left cerebellar hemisphere, no evidence of herniation. 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 fib at time of study. Continue to monitor closely in the ICU. 2. Dizziness with persistent nausea and vomiting. Secondary to #1. Continue care as above. 3. Coffee ground emesis. GI recommendations appreciated. Continue Protonix. May have been secondary to frequent retching and emesis. H&H stable. 4. Atrial fibrillation. Patient was not taking Eliquis at home as prescribed previously. Confirmed with patient's pharmacy. Cardiology recommendations appreciated. Aspirin rectally. Rate controlled. 2-D echo as above. 5. Uncontrolled hypertension. Blood pressure medications held for now. Allow for permissive hypertension. 6. History of CVA with right-sided weakness. Continue with aspirin rectally. 7. CAD s/p stent. Continue with aspirin rectally. Cardiology recommendations appreciated. 2D echo read as above 8. DM2. Continue with insulins sliding scale. Continue to monitor accuchecks. Case was discussed in detail with the patient's family at bedside regarding current diagnosis, study results, and treatment plan. All questions answered.
--- NOTE | 2019-01-12 11:24 | RAD ---
Date of service: 01/12/2019 HISTORY: intubated COMPARISON: 01/11/2019 FINDINGS: Endotracheal tube terminates in the mid trachea. The nasogastric tube terminates in the stomach. LUNGS: The lungs are well inflated and clear. PLEURA: No pleural effusions or pneumothorax. CARDIOVASCULAR: Stable. There are aortic atherosclerotic calcifications present. OSSEOUS STRUCTURES: Within normal limits for the patient's age. VISUALIZED UPPER ABDOMEN: Normal. OTHER FINDINGS: Surgical clips in the right upper quadrant are related to prior cholecystectomy. IMPRESSION: No acute findings. Stable position of support tubes.
--- NOTE | 2019-01-12 12:51 | CP.CCUPN ---
<Theron Gomez - Last Filed: 01/12/19 12:52> CCU Subjective - Physician Review Subjective (Free Text): PGY-2 ICU progress note for Dr Cervantes Withdraws to pain stimuli b/l, pupils non-reactive to light (however she is on propofol). Intubated. Patient's 2 son's at bedside. ROS not obtainable as patient is intubated and sedated. 01/12/19 12:47 Critical Care Time Spent (in minutes): 35 CCU Objective - Vital Signs / Intake & Output Vital Signs (Last 4 hours): Vital Signs Temp Pulse Resp BP Pulse Ox 01/12/19 12:10 95 H 100 01/12/19 12:09 86 01/12/19 12:08 88 01/12/19 12:07 91 H 01/12/19 12:06 93 H 01/12/19 12:05 99 H 01/12/19 12:01 94 H 01/12/19 12:00 98.6 F 93 H 16 214/91 H 100 01/12/19 11:59 100 H 100 01/12/19 11:57 92 H 01/12/19 11:56 85 01/12/19 11:51 92 H 01/12/19 11:50 84 78 L 01/12/19 11:40 88 100 01/12/19 11:30 85 100 01/12/19 11:20 90 100 01/12/19 11:10 86 100 01/12/19 11:00 93 H 191/107 H 95 01/12/19 10:57 83 01/12/19 10:56 87 01/12/19 10:50 85 98 01/12/19 10:40 86 99 01/12/19 10:30 85 89 L 01/12/19 10:20 81 100 01/12/19 10:10 84 100 01/12/19 10:00 91 H 199/103 H 100 01/12/19 09:50 85 100 01/12/19 09:40 88 100 01/12/19 09:30 81 100 01/12/19 09:20 79 100 01/12/19 09:10 86 100 01/12/19 09:00 90 182/67 H 100 01/12/19 08:50 81 14 100 Intake and Output (Last 8hrs): Intake & Output 05/10/19 05/11/19 05/11/19 22:59 06:59 14:59 Intake Total 216 Output Total 700 Balance -484 Intake: IV 216 Left Hand 0 Left Wrist 0 Right Forearm 216 Oral 0 Tube Feeding 0 TPN/PPN 0 Blood Product 0 Lipid 0 Albumin 0 Other 0 Output: Urine 700 Urethral (Angelo) 700 Stool 0 Urine/Stool Mix 0 Emesis 0 Oral Regurgitation 0 Other 0 Other: # Voids Urethral (Angelo) 0 # Bowel Movements 0 - Physical Exam Head: Positive for: Atraumatic, Normocephalic Pupils: Positive for: Non-Reactive Extroacular Muscles: Positive for: Gaze Palsy Conjunctiva: Positive for: Normal Mouth: Positive for: Moist Mucous Membranes Respiratory/Chest: Positive for: Rales (intubated ) Cardiovascular: Positive for: Irregular Rhythm, Peripheal Pulses Present. Negative for: Murmurs, Tachycardic Abdomen: Positive for: Normal Bowel Sounds. Negative for: Distention Lower Extremity: Positive for: Edema Neurological: Positive for: Other (pt intubated and non-responsive to commands) Skin: Positive for: Warm, Dry, Normal Color Psychiatric: Negative for: Alert - Medications Active Medications: Active Medications Generic Name Dose Route Start Last Admin Trade Name Freq PRN Reason Stop Dose Admin Amlodipine Besylate 10 mg 01/09/19 10:00 01/10/19 10:20 Norvasc PO Not Given DAILY BECCA Aspirin 600 mg 01/10/19 14:45 01/12/19 12:07 Aspirin Supp RC 600 mg DAILY BECCA Administration Atorvastatin Calcium 10 mg 01/09/19 10:00 01/10/19 10:21 Lipitor PO Not Given QAM BECCA Dexamethasone 4 mg 01/11/19 12:00 01/12/19 12:06 Decadron Inj IVP 4 mg Q6 BECCA Administration Sodium Chloride 1,000 mls @ 50 mls/hr 01/10/19 15:45 01/11/19 12:38 Sodium Chloride 0.45% IV 50 mls/hr .Q20H BECCA Administration Levetiracetam 500 mg in 100 mls @ 200 mls/hr 01/11/19 10:00 01/12/19 09:45 Keppra 500mg Ivpb IVPB 200 mls/hr Q12 BECCA Administration Propofol 1,000 mg in 100 mls @ 2.286 mls/hr 01/11/19 04:43 01/11/19 05:00 Diprivan IV 5 mcg/kg/min .Q24H PRN 2.286 mls/hr TITRATE PER MD ORDER Administration Protocol 5 MCG/KG/MIN Mannitol 25 gm/ IV SUPPLIES 100 mls @ 100 mls/hr 01/11/19 14:09 01/12/19 09:04 IV 100 mls/hr Q6H BECCA Administration Insulin Human Regular 0 units 01/12/19 00:00 01/12/19 12:06 Humulin R Low SC 1 unit Q6 BECCA Administration Protocol Meclizine HCl 25 mg 01/09/19 06:30 01/10/19 15:22 Antivert PO Not Given Q6H BECCA Metoprolol Succinate 100 mg 01/09/19 11:00 01/10/19 10:21 Toprol Xl PO Not Given BRK BECCA Ondansetron HCl 4 mg 01/09/19 08:44 01/10/19 10:19 Zofran Inj IVP 4 mg Q4H PRN Administration Nausea/Vomiting Pantoprazole Sodium 40 mg 01/11/19 10:00 01/12/19 09:45 Protonix Inj IVP 40 mg DAILY BECCA Administration - Patient Studies Lab Studies: Microbiology Studies 01/10/19 20:41 MRSA Culture (Admit) - Final Naris MRSA NOT DETECTED Lab Studies 01/12/19 01/12/19 01/12/19 Range/Units 11:56 07:58 06:09 WBC (4.5-11.0) 10^3/uL RBC (3.5-6.1) 10^6/uL Hgb (12.0-16.0) g/dL Hct (36.0-48.0) % MCV (80.0-105.0) fl MCH (25.0-35.0) pg MCHC (31.0-37.0) g/dl RDW (11.5-14.5) % Plt Count (120.0-450.0) 10^3/uL MPV (7.0-11.0) fl Neut % (Auto) (50.0-68.0) % Lymph % (Auto) (22.0-35.0) % Benson % (Auto) (1.0-6.0) % Eos % (Auto) (1.5-5.0) % Baso % (Auto) (0.0-3.0) % Lymph # (Auto) (1.2-3.4) Benson # (Auto) (0.1-0.6) Eos # (Auto) (0.0-0.7) Baso # (Auto) (0.0-2.0) K/mm3 Absolute Neuts (auto) (1.4-6.5) pCO2 (35-45) mm/Hg pO2 (80-100) mm/Hg HCO3 (21-28) mmol/L ABG pH (7.35-7.45) ABG Total CO2 (22-28) mmol.L ABG O2 Saturation (95-98) % ABG O2 Content (15-23) ML/dl ABG Base Excess (-2.0-3.0) mmol/L ABG Hemoglobin (11.7-17.4) g/dL ABG Carboxyhemoglobin (0.5-1.5) % POC ABG HHb (Measured) (0-5) % ABG Methemoglobin (0.0-3.0) % ABG O2 Capacity (16-24) mL/dl Hgb O2 Saturation (95.0-98.0) % FiO2 % Sodium (132-148) mmol/L Potassium (3.6-5.0) mmol/L Chloride (98-107) mmol/L Carbon Dioxide (21-33) mmol/L Anion Gap (10-20) BUN (7-21) mg/dL Creatinine (0.7-1.2) mg/dl Est GFR ( Amer) Est GFR (Non-Af Amer) POC Glucose (mg/dL) 199 H 216 H 189 H (65-110) mg/dL Random Glucose (70-110) mg/dL Calcium (8.4-10.5) mg/dL Phosphorus (2.5-4.5) mg/dL Magnesium (1.7-2.2) mg/dL Total Bilirubin (0.2-1.3) mg/dL AST (14-36) U/L ALT (7-56) U/L Alkaline Phosphatase (38-126) U/L Total Protein (5.8-8.3) g/dL Albumin (3.0-4.8) g/dL Globulin gm/dL Albumin/Globulin Ratio (1.1-1.8) 01/12/19 01/12/19 01/12/19 Range/Units 06:00 05:30 05:30 WBC 16.7 H D (4.5-11.0) 10^3/uL RBC 5.16 (3.5-6.1) 10^6/uL Hgb 16.0 (12.0-16.0) g/dL Hct 47.7 (36.0-48.0) % MCV 92.4 (80.0-105.0) fl MCH 31.0 (25.0-35.0) pg MCHC 33.5 (31.0-37.0) g/dl RDW 14.1 (11.5-14.5) % Plt Count 166 (120.0-450.0) 10^3/uL MPV 10.2 (7.0-11.0) fl Neut % (Auto) 92.1 H (50.0-68.0) % Lymph % (Auto) 4.0 L (22.0-35.0) % Benson % (Auto) 3.9 (1.0-6.0) % Eos % (Auto) 0.0 L (1.5-5.0) % Baso % (Auto) 0.0 (0.0-3.0) % Lymph # (Auto) 0.7 L (1.2-3.4) Benson # (Auto) 0.7 H (0.1-0.6) Eos # (Auto) 0.0 (0.0-0.7) Baso # (Auto) 0.00 (0.0-2.0) K/mm3 Absolute Neuts (auto) 15.41 H (1.4-6.5) pCO2 35 (35-45) mm/Hg pO2 229.0 H (80-100) mm/Hg HCO3 24.9 (21-28) mmol/L ABG pH 7.46 H (7.35-7.45) ABG Total CO2 26.0 (22-28) mmol.L ABG O2 Saturation 99.7 H (95-98) % ABG O2 Content 22.3 (15-23) ML/dl ABG Base Excess 1.5 (-2.0-3.0) mmol/L ABG Hemoglobin 16.0 (11.7-17.4) g/dL ABG Carboxyhemoglobin 1.4 (0.5-1.5) % POC ABG HHb (Measured) 0.3 (0-5) % ABG Methemoglobin 1.3 (0.0-3.0) % ABG O2 Capacity 22.4 (16-24) mL/dl Hgb O2 Saturation 96.9 (95.0-98.0) % FiO2 60.0 % Sodium 139 (132-148) mmol/L Potassium 3.9 (3.6-5.0) mmol/L Chloride 104 (98-107) mmol/L Carbon Dioxide 27 (21-33) mmol/L Anion Gap 13 (10-20) BUN 18 (7-21) mg/dL Creatinine 0.7 (0.7-1.2) mg/dl Est GFR ( Amer) > 60 Est GFR (Non-Af Amer) > 60 POC Glucose (mg/dL) (65-110) mg/dL Random Glucose 218 H (70-110) mg/dL Calcium 8.9 (8.4-10.5) mg/dL Phosphorus 2.1 L (2.5-4.5) mg/dL Magnesium 2.4 H (1.7-2.2) mg/dL Total Bilirubin 0.8 (0.2-1.3) mg/dL AST 52 H D (14-36) U/L ALT 22 (7-56) U/L Alkaline Phosphatase 72 (38-126) U/L Total Protein 7.4 (5.8-8.3) g/dL Albumin 3.9 (3.0-4.8) g/dL Globulin 3.5 gm/dL Albumin/Globulin Ratio 1.1 (1.1-1.8) 01/12/19 01/11/19 01/11/19 Range/Units 00:21 17:32 12:38 WBC (4.5-11.0) 10^3/uL RBC (3.5-6.1) 10^6/uL Hgb (12.0-16.0) g/dL Hct (36.0-48.0) % MCV (80.0-105.0) fl MCH (25.0-35.0) pg MCHC (31.0-37.0) g/dl RDW (11.5-14.5) % Plt Count (120.0-450.0) 10^3/uL MPV (7.0-11.0) fl Neut % (Auto) (50.0-68.0) % Lymph % (Auto) (22.0-35.0) % Benson % (Auto) (1.0-6.0) % Eos % (Auto) (1.5-5.0) % Baso % (Auto) (0.0-3.0) % Lymph # (Auto) (1.2-3.4) Benson # (Auto) (0.1-0.6) Eos # (Auto) (0.0-0.7) Baso # (Auto) (0.0-2.0) K/mm3 Absolute Neuts (auto) (1.4-6.5) pCO2 (35-45) mm/Hg pO2 (80-100) mm/Hg HCO3 (21-28) mmol/L ABG pH (7.35-7.45) ABG Total CO2 (22-28) mmol.L ABG O2 Saturation (95-98) % ABG O2 Content (15-23) ML/dl ABG Base Excess (-2.0-3.0) mmol/L ABG Hemoglobin (11.7-17.4) g/dL ABG Carboxyhemoglobin (0.5-1.5) % POC ABG HHb (Measured) (0-5) % ABG Methemoglobin (0.0-3.0) % ABG O2 Capacity (16-24) mL/dl Hgb O2 Saturation (95.0-98.0) % FiO2 % Sodium (132-148) mmol/L Potassium (3.6-5.0) mmol/L Chloride (98-107) mmol/L Carbon Dioxide (21-33) mmol/L Anion Gap (10-20) BUN (7-21) mg/dL Creatinine (0.7-1.2) mg/dl Est GFR ( Amer) Est GFR (Non-Af Amer) POC Glucose (mg/dL) 184 H 242 H 234 H (65-110) mg/dL Random Glucose (70-110) mg/dL Calcium (8.4-10.5) mg/dL Phosphorus (2.5-4.5) mg/dL Magnesium (1.7-2.2) mg/dL Total Bilirubin (0.2-1.3) mg/dL AST (14-36) U/L ALT (7-56) U/L Alkaline Phosphatase (38-126) U/L Total Protein (5.8-8.3) g/dL Albumin (3.0-4.8) g/dL Globulin gm/dL Albumin/Globulin Ratio (1.1-1.8) Laboratory Results - last 24 hr 01/11/19 01/11/19 01/12/19 12:38 17:32 00:21 WBC RBC Hgb Hct MCV MCH MCHC RDW Plt Count MPV Neut % (Auto) Lymph % (Auto) Benson % (Auto) Eos % (Auto) Baso % (Auto) Lymph # (Auto) Benson # (Auto) Eos # (Auto) Baso # (Auto) Absolute Neuts (auto) pCO2 pO2 HCO3 ABG pH ABG Total CO2 ABG O2 Saturation ABG O2 Content ABG Base Excess ABG Hemoglobin ABG Carboxyhemoglobin POC ABG HHb (Measured) ABG Methemoglobin ABG O2 Capacity Hgb O2 Saturation FiO2 Sodium Potassium Chloride Carbon Dioxide Anion Gap BUN Creatinine Est GFR ( Amer) Est GFR (Non-Af Amer) POC Glucose (mg/dL) 234 H 242 H 184 H Random Glucose Calcium Phosphorus Magnesium Total Bilirubin AST ALT Alkaline Phosphatase Total Protein Albumin Globulin Albumin/Globulin Ratio 01/12/19 01/12/19 01/12/19 05:30 05:30 06:00 WBC 16.7 H D RBC 5.16 Hgb 16.0 Hct 47.7 MCV 92.4 MCH 31.0 MCHC 33.5 RDW 14.1 Plt Count 166 MPV 10.2 Neut % (Auto) 92.1 H Lymph % (Auto) 4.0 L Benson % (Auto) 3.9 Eos % (Auto) 0.0 L Baso % (Auto) 0.0 Lymph # (Auto) 0.7 L Benson # (Auto) 0.7 H Eos # (Auto) 0.0 Baso # (Auto) 0.00 Absolute Neuts (auto) 15.41 H pCO2 35 pO2 229.0 H HCO3 24.9 ABG pH 7.46 H ABG Total CO2 26.0 ABG O2 Saturation 99.7 H ABG O2 Content 22.3 ABG Base Excess 1.5 ABG Hemoglobin 16.0 ABG Carboxyhemoglobin 1.4 POC ABG HHb (Measured) 0.3 ABG Methemoglobin 1.3 ABG O2 Capacity 22.4 Hgb O2 Saturation 96.9 FiO2 60.0 Sodium 139 Potassium 3.9 Chloride 104 Carbon Dioxide 27 Anion Gap 13 BUN 18 Creatinine 0.7 Est GFR ( Amer) > 60 Est GFR (Non-Af Amer) > 60 POC Glucose (mg/dL) Random Glucose 218 H Calcium 8.9 Phosphorus 2.1 L Magnesium 2.4 H Total Bilirubin 0.8 AST 52 H D ALT 22 Alkaline Phosphatase 72 Total Protein 7.4 Albumin 3.9 Globulin 3.5 Albumin/Globulin Ratio 1.1 01/12/19 01/12/19 01/12/19 06:09 07:58 11:56 WBC RBC Hgb Hct MCV MCH MCHC RDW Plt Count MPV Neut % (Auto) Lymph % (Auto) Benson % (Auto) Eos % (Auto) Baso % (Auto) Lymph # (Auto) Benson # (Auto) Eos # (Auto) Baso # (Auto) Absolute Neuts (auto) pCO2 pO2 HCO3 ABG pH ABG Total CO2 ABG O2 Saturation ABG O2 Content ABG Base Excess ABG Hemoglobin ABG Carboxyhemoglobin POC ABG HHb (Measured) ABG Methemoglobin ABG O2 Capacity Hgb O2 Saturation FiO2 Sodium Potassium Chloride Carbon Dioxide Anion Gap BUN Creatinine Est GFR ( Amer) Est GFR (Non-Af Amer) POC Glucose (mg/dL) 189 H 216 H 199 H Random Glucose Calcium Phosphorus Magnesium Total Bilirubin AST ALT Alkaline Phosphatase Total Protein Albumin Globulin Albumin/Globulin Ratio Radiology Impressions: Radiology Impressions Chest X-Ray 01/12/19 05:30 IMPRESSION: No acute findings. Stable position of support tubes. Head CT 01/12/19 07:00 IMPRESSION: 1. Interval development of globe acute infarction in the right cerebral hemisphere with diffuse cerebral edema, mass effect and effacement of the right lateral ventricle and brainstem, 7 mm midline shift from right to left and subfalcine herniation. Acute thrombus is identified in the right middle cerebral artery and M2 branches in the sylvian fissure. 2. Evolving late acute/late subacute bilateral cerebellar hemisphere infarctions, worse on the left with stable obstructive hydrocephalus. Critical findings were discussed with the resident in the CCU on 01/12/2019 at 9:35 a.m. 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 An MRI conducted showed acute CVA in the inferior left cerebellar hemisphere with edema and mass effect. 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 01/11/19 - was intubated and sedated on propofol -neurosurgery offered neurosurgical intervention w/ explanation of risks/benefits - the family has refused; neurosurgery recommends continued aggressive medical tx and if no improvement in 48 hrs then palliative care -aspirin 600mg rc qd, mannitol 25% 100ml iv q6h, decadron 4mg ivp q6, 1/2NS 50cc/hr, keppra 500mg ivpb q12 -plavix not able to be given rc, hold plavix for now -zofran 4mg ivp q4h prn for nausea -allow permissive HTN -lipid panel shows triglycerides of 200 otherwise normal -echo 01/10/19: EF 55%, mod to severe pulm HTN, no thrombus or vegetation noted, mild concentric LV hypertrophy -MRI 01/10/19: * acute CVA in the inferior left cerebellar hemisphere with edema and mass effect -CTA head/neck 01/10/19: * unremarkable -CT head w/o contrast 01/09/19: * Age-appropriate age related neuro degenerative findings are identified as discussed above. Examination not dramatically changed compared prior brain MRI 07/18/2014. No definite acute findings as per standard CT criteria. -CT head w/o contrast 01/11/19: * diffuse swelling of left cerebellar hemisphere consistent w/ an acute infarct, the findings appear to be unchanged compared to prior MRI, there is some mass effect w/ midline shift in posterior fossa and compression of 4th ventricle, no associated hydrocephalus -CT head 01/12/19: * interval development of globe acute infarction in right cerebral hemisphere with diffuse cerebral edema, mass effect and effacement of right lateral ventricle and brainstem, 7mm midline shift from right to left and subfalcine herniation; acute thrombus is identified in right middle cerebral artery and M2 branches in sylvian fissure; evolving late acute/late subacte bilateral cerebellar hemisphere infarctions, worse on left with stable obstructive hydrocephalus -if improvement, swallow eval and treat, physical therapy eval and treat -high fall risk protocol, neuro checks q2h, aspiration precautions -palliative consulted, Mrs Markham -neurology consulted, Dr Ernst -neurosurgery consulted, Dr Cornejo GI #concern for coffee ground emesis -protonix 40mg ivp bid -seen by GI, Dr Paniagua -Per GI, no present concern for GI bleeding - patient is OK to start anticoagulation for atrial fibrillation -GI has signed off as persistent nausea/vomiting likely due to acute stroke Cardiovascular #Afib, Rate controlled -patient was not taking AO at home prior to arrival -lopressor 5mg ivp q6h prn for rate control -currently holding home toprol 100mg po qd and amlodipine 10mg po qd -cardiology consulted, Dr Hilton #Hypertensive -allow permissive hypertension for now Endocrine #DM2 -Hgba1c 7.0 -accuchecks achs -insulin sliding scale - low dose protocol -holding home metformin Infectious Disease -afebrile -no active ID issues Pulmonary #Unstable Airway -intubated on prvc 60/5/16/350 PPx: protonix 40mg ivp bid; no AO for fear of hemorrhagic conversion Dispo: This morning patient's son stated they will likely agree to DNR status but wanted to wait until rest of family arrived. Seen and discussed with Dr Cervantes <Lucho Cervantes - Last Filed: 01/12/19 14:06> CCU Objective - Vital Signs / Intake & Output Vital Signs (Last 4 hours): Vital Signs Temp Pulse Resp BP Pulse Ox 01/12/19 12:10 95 H 100 01/12/19 12:09 86 01/12/19 12:08 88 01/12/19 12:07 91 H 01/12/19 12:06 93 H 01/12/19 12:05 99 H 01/12/19 12:01 94 H 01/12/19 12:00 98.6 F 93 H 16 214/91 H 100 01/12/19 11:59 100 H 100 01/12/19 11:57 92 H 01/12/19 11:56 85 01/12/19 11:51 92 H 01/12/19 11:50 84 78 L 01/12/19 11:40 88 100 01/12/19 11:30 85 100 01/12/19 11:20 90 100 01/12/19 11:10 86 100 01/12/19 11:00 93 H 191/107 H 95 01/12/19 10:57 83 01/12/19 10:56 87 01/12/19 10:50 85 98 01/12/19 10:40 86 99 01/12/19 10:30 85 89 L 01/12/19 10:20 81 100 01/12/19 10:10 84 100 Intake and Output (Last 8hrs): Intake & Output 01/11/19 01/12/19 01/12/19 22:59 06:59 14:59 Intake Total 216 Output Total 700 Balance -484 Intake: IV 216 Left Hand 0 Left Wrist 0 Right Forearm 216 Oral 0 Tube Feeding 0 TPN/PPN 0 Blood Product 0 Lipid 0 Albumin 0 Other 0 Output: Urine 700 Urethral (Angelo) 700 Stool 0 Urine/Stool Mix 0 Emesis 0 Oral Regurgitation 0 Other 0 Other: # Voids Urethral (Angelo) 0 # Bowel Movements 0 - Medications Active Medications: Active Medications Generic Name Dose Route Start Last Admin Trade Name Freq PRN Reason Stop Dose Admin Amlodipine Besylate 10 mg 01/09/19 10:00 01/10/19 10:20 Norvasc PO Not Given DAILY BECCA Aspirin 600 mg 01/10/19 14:45 01/12/19 12:07 Aspirin Supp RC 600 mg DAILY BECCA Administration Atorvastatin Calcium 10 mg 01/09/19 10:00 01/10/19 10:21 Lipitor PO Not Given QAM BECCA Dexamethasone 4 mg 01/11/19 12:00 01/12/19 12:06 Decadron Inj IVP 4 mg Q6 BECCA Administration Sodium Chloride 1,000 mls @ 50 mls/hr 01/10/19 15:45 01/11/19 12:38 Sodium Chloride 0.45% IV 50 mls/hr .Q20H BECCA Administration Levetiracetam 500 mg in 100 mls @ 200 mls/hr 01/11/19 10:00 01/12/19 09:45 Keppra 500mg Ivpb IVPB 200 mls/hr Q12 BECCA Administration Propofol 1,000 mg in 100 mls @ 2.286 mls/hr 01/11/19 04:43 01/11/19 05:00 Diprivan IV 5 mcg/kg/min .Q24H PRN 2.286 mls/hr TITRATE PER MD ORDER Administration Protocol 5 MCG/KG/MIN Mannitol 25 gm/ IV SUPPLIES 100 mls @ 100 mls/hr 01/11/19 14:09 01/12/19 09:04 IV 100 mls/hr Q6H BECCA Administration Insulin Human Regular 0 units 01/12/19 00:00 01/12/19 12:06 Humulin R Low SC 1 unit Q6 BECCA Administration Protocol Meclizine HCl 25 mg 01/09/19 06:30 01/10/19 15:22 Antivert PO Not Given Q6H BECCA Metoprolol Succinate 100 mg 01/09/19 11:00 01/10/19 10:21 Toprol Xl PO Not Given [facility] Ondansetron HCl 4 mg 01/09/19 08:44 01/10/19 10:19 Zofran Inj IVP 4 mg Q4H PRN Administration Nausea/Vomiting Pantoprazole Sodium 40 mg 01/11/19 10:00 01/12/19 09:45 Protonix Inj IVP 40 mg DAILY BECCA Administration - Patient Studies Lab Studies: Microbiology Studies 01/10/19 20:41 MRSA Culture (Admit) - Final Naris MRSA NOT DETECTED Lab Studies 01/12/19 01/12/19 01/12/19 Range/Units 11:56 07:58 06:09 WBC (4.5-11.0) 10^3/uL RBC (3.5-6.1) 10^6/uL Hgb (12.0-16.0) g/dL Hct (36.0-48.0) % MCV (80.0-105.0) fl MCH (25.0-35.0) pg MCHC (31.0-37.0) g/dl RDW (11.5-14.5) % Plt Count (120.0-450.0) 10^3/uL MPV (7.0-11.0) fl Neut % (Auto) (50.0-68.0) % Lymph % (Auto) (22.0-35.0) % Benson % (Auto) (1.0-6.0) % Eos % (Auto) (1.5-5.0) % Baso % (Auto) (0.0-3.0) % Lymph # (Auto) (1.2-3.4) Benson # (Auto) (0.1-0.6) Eos # (Auto) (0.0-0.7) Baso # (Auto) (0.0-2.0) K/mm3 Absolute Neuts (auto) (1.4-6.5) pCO2 (35-45) mm/Hg pO2 (80-100) mm/Hg HCO3 (21-28) mmol/L ABG pH (7.35-7.45) ABG Total CO2 (22-28) mmol.L ABG O2 Saturation (95-98) % ABG O2 Content (15-23) ML/dl ABG Base Excess (-2.0-3.0) mmol/L ABG Hemoglobin (11.7-17.4) g/dL ABG Carboxyhemoglobin (0.5-1.5) % POC ABG HHb (Measured) (0-5) % ABG Methemoglobin (0.0-3.0) % ABG O2 Capacity (16-24) mL/dl Hgb O2 Saturation (95.0-98.0) % FiO2 % Sodium (132-148) mmol/L Potassium (3.6-5.0) mmol/L Chloride (98-107) mmol/L Carbon Dioxide (21-33) mmol/L Anion Gap (10-20) BUN (7-21) mg/dL Creatinine (0.7-1.2) mg/dl Est GFR ( Amer) Est GFR (Non-Af Amer) POC Glucose (mg/dL) 199 H 216 H 189 H (65-110) mg/dL Random Glucose (70-110) mg/dL Calcium (8.4-10.5) mg/dL Phosphorus (2.5-4.5) mg/dL Magnesium (1.7-2.2) mg/dL Total Bilirubin (0.2-1.3) mg/dL AST (14-36) U/L ALT (7-56) U/L Alkaline Phosphatase (38-126) U/L Total Protein (5.8-8.3) g/dL Albumin (3.0-4.8) g/dL Globulin gm/dL Albumin/Globulin Ratio (1.1-1.8) 01/12/19 01/12/19 01/12/19 Range/Units 06:00 05:30 05:30 WBC 16.7 H D (4.5-11.0) 10^3/uL RBC 5.16 (3.5-6.1) 10^6/uL Hgb 16.0 (12.0-16.0) g/dL Hct 47.7 (36.0-48.0) % MCV 92.4 (80.0-105.0) fl MCH 31.0 (25.0-35.0) pg MCHC 33.5 (31.0-37.0) g/dl RDW 14.1 (11.5-14.5) % Plt Count 166 (120.0-450.0) 10^3/uL MPV 10.2 (7.0-11.0) fl Neut % (Auto) 92.1 H (50.0-68.0) % Lymph % (Auto) 4.0 L (22.0-35.0) % Benson % (Auto) 3.9 (1.0-6.0) % Eos % (Auto) 0.0 L (1.5-5.0) % Baso % (Auto) 0.0 (0.0-3.0) % Lymph # (Auto) 0.7 L (1.2-3.4) Benson # (Auto) 0.7 H (0.1-0.6) Eos # (Auto) 0.0 (0.0-0.7) Baso # (Auto) 0.00 (0.0-2.0) K/mm3 Absolute Neuts (auto) 15.41 H (1.4-6.5) pCO2 35 (35-45) mm/Hg pO2 229.0 H (80-100) mm/Hg HCO3 24.9 (21-28) mmol/L ABG pH 7.46 H (7.35-7.45) ABG Total CO2 26.0 (22-28) mmol.L ABG O2 Saturation 99.7 H (95-98) % ABG O2 Content 22.3 (15-23) ML/dl ABG Base Excess 1.5 (-2.0-3.0) mmol/L ABG Hemoglobin 16.0 (11.7-17.4) g/dL ABG Carboxyhemoglobin 1.4 (0.5-1.5) % POC ABG HHb (Measured) 0.3 (0-5) % ABG Methemoglobin 1.3 (0.0-3.0) % ABG O2 Capacity 22.4 (16-24) mL/dl Hgb O2 Saturation 96.9 (95.0-98.0) % FiO2 60.0 % Sodium 139 (132-148) mmol/L Potassium 3.9 (3.6-5.0) mmol/L Chloride 104 (98-107) mmol/L Carbon Dioxide 27 (21-33) mmol/L Anion Gap 13 (10-20) BUN 18 (7-21) mg/dL Creatinine 0.7 (0.7-1.2) mg/dl Est GFR ( Amer) > 60 Est GFR (Non-Af Amer) > 60 POC Glucose (mg/dL) (65-110) mg/dL Random Glucose 218 H (70-110) mg/dL Calcium 8.9 (8.4-10.5) mg/dL Phosphorus 2.1 L (2.5-4.5) mg/dL Magnesium 2.4 H (1.7-2.2) mg/dL Total Bilirubin 0.8 (0.2-1.3) mg/dL AST 52 H D (14-36) U/L ALT 22 (7-56) U/L Alkaline Phosphatase 72 (38-126) U/L Total Protein 7.4 (5.8-8.3) g/dL Albumin 3.9 (3.0-4.8) g/dL Globulin 3.5 gm/dL Albumin/Globulin Ratio 1.1 (1.1-1.8) 01/12/19 01/11/19 01/11/19 Range/Units 00:21 17:32 12:38 WBC (4.5-11.0) 10^3/uL RBC (3.5-6.1) 10^6/uL Hgb (12.0-16.0) g/dL Hct (36.0-48.0) % MCV (80.0-105.0) fl MCH (25.0-35.0) pg MCHC (31.0-37.0) g/dl RDW (11.5-14.5) % Plt Count (120.0-450.0) 10^3/uL MPV (7.0-11.0) fl Neut % (Auto) (50.0-68.0) % Lymph % (Auto) (22.0-35.0) % Benson % (Auto) (1.0-6.0) % Eos % (Auto) (1.5-5.0) % Baso % (Auto) (0.0-3.0) % Lymph # (Auto) (1.2-3.4) Benson # (Auto) (0.1-0.6) Eos # (Auto) (0.0-0.7) Baso # (Auto) (0.0-2.0) K/mm3 Absolute Neuts (auto) (1.4-6.5) pCO2 (35-45) mm/Hg pO2 (80-100) mm/Hg HCO3 (21-28) mmol/L ABG pH (7.35-7.45) ABG Total CO2 (22-28) mmol.L ABG O2 Saturation (95-98) % ABG O2 Content (15-23) ML/dl ABG Base Excess (-2.0-3.0) mmol/L ABG Hemoglobin (11.7-17.4) g/dL ABG Carboxyhemoglobin (0.5-1.5) % POC ABG HHb (Measured) (0-5) % ABG Methemoglobin (0.0-3.0) % ABG O2 Capacity (16-24) mL/dl Hgb O2 Saturation (95.0-98.0) % FiO2 % Sodium (132-148) mmol/L Potassium (3.6-5.0) mmol/L Chloride (98-107) mmol/L Carbon Dioxide (21-33) mmol/L Anion Gap (10-20) BUN (7-21) mg/dL Creatinine (0.7-1.2) mg/dl Est GFR ( Amer) Est GFR (Non-Af Amer) POC Glucose (mg/dL) 184 H 242 H 234 H (65-110) mg/dL Random Glucose (70-110) mg/dL Calcium (8.4-10.5) mg/dL Phosphorus (2.5-4.5) mg/dL Magnesium (1.7-2.2) mg/dL Total Bilirubin (0.2-1.3) mg/dL AST (14-36) U/L ALT (7-56) U/L Alkaline Phosphatase (38-126) U/L Total Protein (5.8-8.3) g/dL Albumin (3.0-4.8) g/dL Globulin gm/dL Albumin/Globulin Ratio (1.1-1.8) Laboratory Results - last 24 hr 01/11/19 01/11/19 01/12/19 12:38 17:32 00:21 WBC RBC Hgb Hct MCV MCH MCHC RDW Plt Count MPV Neut % (Auto) Lymph % (Auto) Benson % (Auto) Eos % (Auto) Baso % (Auto) Lymph # (Auto) Benson # (Auto) Eos # (Auto) Baso # (Auto) Absolute Neuts (auto) pCO2 pO2 HCO3 ABG pH ABG Total CO2 ABG O2 Saturation ABG O2 Content ABG Base Excess ABG Hemoglobin ABG Carboxyhemoglobin POC ABG HHb (Measured) ABG Methemoglobin ABG O2 Capacity Hgb O2 Saturation FiO2 Sodium Potassium Chloride Carbon Dioxide Anion Gap BUN Creatinine Est GFR ( Amer) Est GFR (Non-Af Amer) POC Glucose (mg/dL) 234 H 242 H 184 H Random Glucose Calcium Phosphorus Magnesium Total Bilirubin AST ALT Alkaline Phosphatase Total Protein Albumin Globulin Albumin/Globulin Ratio 01/12/19 01/12/19 01/12/19 05:30 05:30 06:00 WBC 16.7 H D RBC 5.16 Hgb 16.0 Hct 47.7 MCV 92.4 MCH 31.0 MCHC 33.5 RDW 14.1 Plt Count 166 MPV 10.2 Neut % (Auto) 92.1 H Lymph % (Auto) 4.0 L Benson % (Auto) 3.9 Eos % (Auto) 0.0 L Baso % (Auto) 0.0 Lymph # (Auto) 0.7 L Benson # (Auto) 0.7 H Eos # (Auto) 0.0 Baso # (Auto) 0.00 Absolute Neuts (auto) 15.41 H pCO2 35 pO2 229.0 H HCO3 24.9 ABG pH 7.46 H ABG Total CO2 26.0 ABG O2 Saturation 99.7 H ABG O2 Content 22.3 ABG Base Excess 1.5 ABG Hemoglobin 16.0 ABG Carboxyhemoglobin 1.4 POC ABG HHb (Measured) 0.3 ABG Methemoglobin 1.3 ABG O2 Capacity 22.4 Hgb O2 Saturation 96.9 FiO2 60.0 Sodium 139 Potassium 3.9 Chloride 104 Carbon Dioxide 27 Anion Gap 13 BUN 18 Creatinine 0.7 Est GFR ( Amer) > 60 Est GFR (Non-Af Amer) > 60 POC Glucose (mg/dL) Random Glucose 218 H Calcium 8.9 Phosphorus 2.1 L Magnesium 2.4 H Total Bilirubin 0.8 AST 52 H D ALT 22 Alkaline Phosphatase 72 Total Protein 7.4 Albumin 3.9 Globulin 3.5 Albumin/Globulin Ratio 1.1 01/12/19 01/12/19 01/12/19 06:09 07:58 11:56 WBC RBC Hgb Hct MCV MCH MCHC RDW Plt Count MPV Neut % (Auto) Lymph % (Auto) Benson % (Auto) Eos % (Auto) Baso % (Auto) Lymph # (Auto) Benson # (Auto) Eos # (Auto) Baso # (Auto) Absolute Neuts (auto) pCO2 pO2 HCO3 ABG pH ABG Total CO2 ABG O2 Saturation ABG O2 Content ABG Base Excess ABG Hemoglobin ABG Carboxyhemoglobin POC ABG HHb (Measured) ABG Methemoglobin ABG O2 Capacity Hgb O2 Saturation FiO2 Sodium Potassium Chloride Carbon Dioxide Anion Gap BUN Creatinine Est GFR ( Amer) Est GFR (Non-Af Amer) POC Glucose (mg/dL) 189 H 216 H 199 H Random Glucose Calcium Phosphorus Magnesium Total Bilirubin AST ALT Alkaline Phosphatase Total Protein Albumin Globulin Albumin/Globulin Ratio Radiology Impressions: Radiology Impressions Chest X-Ray 01/12/19 05:30 IMPRESSION: No acute findings. Stable position of support tubes. Head CT 01/12/19 07:00 IMPRESSION: 1. Interval development of globe acute infarction in the right cerebral hemisphere with diffuse cerebral edema, mass effect and effacement of the right lateral ventricle and brainstem, 7 mm midline shift from right to left and subfalcine herniation. Acute thrombus is identified in the right middle cerebral artery and M2 branches in the sylvian fissure. 2. Evolving late acute/late subacute bilateral cerebellar hemisphere infarctions, worse on the left with stable obstructive hydrocephalus. Critical findings were discussed with the resident in the CCU on 01/12/2019 at 9:35 a.m. Critical Care Progress Note - Nutrition Nutrition: Nutrition Category Date Time Status NPO Diet [DIET] Diets 01/10/19 Lunch Ordered Attending/Attestation - Attestation I have personally seen and examined this patient.: Yes I have fully participated in the care of the patient.: Yes I have reviewed all pertinent clinical information: Yes Notes (Text): 01/12/19 14:00 83 yo femal with subfalcine herniation. full hemodynamic and ventilatory support for now, untill the rest of patient's family arrives. After lengthy conversation with family members who were present at bedside, they expressed their wishes (based on known wishes of the patient) to proceed with comfort and palliative care only once the rest of family arrive. ccm time 40 min
--- NOTE | 2019-01-12 13:19 | CP.PCM.PN ---
Subjective - Date & Time of Evaluation Date of Evaluation: 01/12/19 Time of Evaluation: 13:00 - Subjective Subjective: Neurology progress note: 83 yr old woman with now new stroke, that affects the Right hemisphere, acute in nature, that is second stroke in 4 days, etiology most likely is afib and not being on anticoagulation. She is now withdrawing right limb briskly to pain, and leg. She has a minimal reaction to light in her right eye, with left eye being unreactive. Pupils are poorly and sluggishly reactive, and there is no witnessed seizure activity. She has a gag and corneals at this time. ROS; not obtainable. Objective - Vital Signs/Intake and Output Vital Signs (last 24 hours): Temp Pulse Resp BP Pulse Ox 98.6 F 95 H 16 214/91 H 100 01/12/19 12:00 01/12/19 12:10 01/12/19 12:00 01/12/19 12:00 01/12/19 12:10 Intake and Output: 01/12/19 01/12/19 06:59 18:59 Intake Total 216 Output Total 700 Balance -484 - Medications Medications: Current Medications Amlodipine Besylate (Norvasc) 10 mg PO DAILY [facility] Last Admin: 01/10/19 10:20 Dose: Not Given Aspirin (Aspirin Supp) 600 mg RC DAILY [facility] Last Admin: 01/12/19 12:07 Dose: 600 mg Atorvastatin Calcium (Lipitor) 10 mg PO QAM [facility] Last Admin: 01/10/19 10:21 Dose: Not Given Dexamethasone (Decadron Inj) 4 mg IVP Q6 [facility] Last Admin: 01/12/19 12:06 Dose: 4 mg Sodium Chloride (Sodium Chloride 0.45%) 1,000 mls @ 50 mls/hr IV .Q20H [facility] Last Admin: 01/11/19 12:38 Dose: 50 mls/hr Levetiracetam (Keppra 500mg Ivpb) 500 mg in 100 mls @ 200 mls/hr IVPB Q12 [facility] Last Admin: 01/12/19 09:45 Dose: 200 mls/hr Propofol (Diprivan) 1,000 mg in 100 mls @ 2.286 mls/hr IV .Q24H PRN; Protocol PRN Reason: TITRATE PER MD ORDER Last Admin: 01/11/19 05:00 Dose: 5 mcg/kg/min, 2.286 mls/hr Mannitol 25 gm/ IV SUPPLIES 100 mls @ 100 mls/hr IV Q6H [facility] Last Admin: 01/12/19 09:04 Dose: 100 mls/hr Insulin Human Regular (Humulin R Low) 0 units SC Q6 [facility]; Protocol Last Admin: 01/12/19 12:06 Dose: 1 unit Meclizine HCl (Antivert) 25 mg PO Q6H [facility] Last Admin: 01/10/19 15:22 Dose: Not Given Metoprolol Succinate (Toprol Xl) 100 mg PO BRK [facility] Last Admin: 01/10/19 10:21 Dose: Not Given Ondansetron HCl (Zofran Inj) 4 mg IVP Q4H PRN PRN Reason: Nausea/Vomiting Last Admin: 01/10/19 10:19 Dose: 4 mg Pantoprazole Sodium (Protonix Inj) 40 mg IVP DAILY [facility] Last Admin: 01/12/19 09:45 Dose: 40 mg - Labs Labs: 01/12/19 05:30 01/12/19 05:30 PT 12.8 SECONDS (9.4-12.5) H 01/11/19 08:15 INR 1.13 01/11/19 08:15 APTT 32.8 Seconds (26.9-38.3) 01/11/19 08:15 Assessment and Plan - Assessment and Plan (Free Text) Assessment: 83 yr old woman with very poor prognosis, not a candidate for hemispherectomy, who is now suffering from a new large territory Right complete hemispheric stroke, and continues to have brainstem reflexes. pLan: 1. VEEG for prognosis. 2. Continue mannitol Dr. Ernst neurology
[2019-01-12] MEDS ORDERED: Morphine 2 mg/ml ISec IVP PRN (18:26)
--- NOTE | 2019-01-13 07:13 | PCM.VEEG ---
Video EEG - Procedure Start Date: 01/12/19 Start Time: 16:15 End Date: 01/12/19 End Time: 19:25 Technical Summary: DATA ACQUISITION: This was a multichannel inpatient video-EEG, a minimum of 22 channels were uti lized, performed in accordance with recommendations specified by the [place] [employer] Society (Nida Pressley et al. ACNS Guideline 1: Minimum Technical Requirements for Performing Clinical Electroencephalography. Journal of Clinical Neurophysiology 2016;33:303-7). The 10-20 electrode placement system was utilized in accordance with guidelines detailed by the International Federation of Clinical Neurophysiology (Lynne Palmer et al. The Ten-Twenty Electrode System of the International Federation. Recommendations for the Practice of Clinical Neurophysiology: Guidelines of the International Federation of Clinical Physiology 1999; EEG Suppl. 52.). DATA REVIEW / SPIKE DETECTION / DIGITAL ANALYSIS: The entire EEG was scanned and reviewed. Synchronized audio and video recording were reviewed at the time of each alarm and whenever an abnormality or suspicious activity was noted. The entire recording was analyzed utilizing an automated digital spike and seizure analysis program and all automatic spike and seizure detections were manually reviewed. A compressed spectral array was displayed and reviewed alongside the raw EEG tracings. In addition, further analysis of the EEG was performed when abnormalities were identified, including montage changes, dipole source localization, and frequency band identification. This study was attended 24 hours per day. - Interpretation Description of the study: Indication; status epilepticus and prognosis. EEG Finding during wakefulness: During the entire study was not discernible awake EEG background, during this time the EEG showed diffuse bilateral attenuation with frequencies in the 4 to 5 Hz. The EEG showed marked asymmetry with the left having higher amplitude and slower frequencies than the right, the right was more attenuated and less reactive. There was intermittent bifrontal rhythmic delta slowing at 3 to 4 Hz lasting 3 to 6 seconds mainly seen during drowsiness occasionally during wakefulness EEG Finding during sleep: Normal sleep architecture was not seen Interictal non-epileptiform abnormalities: There was continuous right hemispheric 4 to 5 Hz attenuated slowing seen during the study, there were occasional sharp waves seen, not clearly epil eptiform. NO organized seizure activity was seen Interictal epileptiform abnormalities: None Ictal epileptiform abnormalities: NOne - Impression Impression: This was an abnormal video EEG, monitoring study, due to the presence of: 1- Moderate to severe background slowing/attenuation . 2- Right hemispheric attenuated slowing. No seizures, not in status epilepticus. INTERPRETATION: The above mentioned findings are in keeping with a focal structural abnormality involving the RIGHT hemisphere, in keeping with a structural abnormality in the same area. The findings are also in keeping with a moderate non specific diffuse disturbance of cortical activity. This is in keeping with a diffuse farrell matter dysfunction. The findings do not suggest a specific etiology.
[2019-01-13 08:45] VITALS: TEMP 100.3
--- NOTE | 2019-01-13 10:44 | CP.PCM.PN ---
<Kehinde Ramirez - Last Filed: 01/13/19 12:28> Subjective - Date & Time of Evaluation Date of Evaluation: 01/13/19 Time of Evaluation: 08:15 - Subjective Subjective: Kehinde Ramirez DO, PGY-1 Hospitalist Progress Note for Dr. Iris Gonzales Patient was seen and examined at bedside this AM. She was extubated yesterday evening at the request of her family. Family is at bedside and state that she moves periodically. Objective - Vital Signs/Intake and Output Vital Signs (last 24 hours): Temp Pulse Resp BP Pulse Ox 100.3 F H 111 H 27 H 195/104 H 93 L 01/13/19 06:00 01/13/19 02:50 01/13/19 02:50 01/13/19 02:00 01/13/19 02:50 Intake and Output: 01/13/19 01/13/19 06:59 18:59 Intake Total 0 Output Total 800 Balance -800 - Medications Medications: Current Medications Amlodipine Besylate (Norvasc) 10 mg PO DAILY [facility] Last Admin: 01/10/19 10:20 Dose: Not Given Aspirin (Aspirin Supp) 600 mg RC DAILY [facility] Last Admin: 01/12/19 12:07 Dose: 600 mg Atorvastatin Calcium (Lipitor) 10 mg PO QAM [facility] Last Admin: 01/10/19 10:21 Dose: Not Given Dexamethasone (Decadron Inj) 4 mg IVP Q6 [facility] Last Admin: 01/12/19 12:06 Dose: 4 mg Sodium Chloride (Sodium Chloride 0.45%) 1,000 mls @ 50 mls/hr IV .Q20H [facility] Last Admin: 01/11/19 12:38 Dose: 50 mls/hr Levetiracetam (Keppra 500mg Ivpb) 500 mg in 100 mls @ 200 mls/hr IVPB Q12 [facility] Last Admin: 01/12/19 09:45 Dose: 200 mls/hr Mannitol 25 gm/ IV SUPPLIES 100 mls @ 100 mls/hr IV Q6H [facility] Last Admin: 01/12/19 14:21 Dose: 100 mls/hr Insulin Human Regular (Humulin R Low) 0 units SC Q6 [facility]; Protocol Last Admin: 01/12/19 12:06 Dose: 1 unit Meclizine HCl (Antivert) 25 mg PO Q6H [facility] Last Admin: 01/10/19 15:22 Dose: Not Given Metoprolol Succinate (Toprol Xl) 100 mg PO BRK [facility] Last Admin: 01/10/19 10:21 Dose: Not Given Morphine Sulfate (Morphine) 2 mg IVP Q4H PRN PRN Reason: Pain, severe (8-10) Ondansetron HCl (Zofran Inj) 4 mg IVP Q4H PRN PRN Reason: Nausea/Vomiting Last Admin: 01/10/19 10:19 Dose: 4 mg Pantoprazole Sodium (Protonix Inj) 40 mg IVP DAILY [facility] Last Admin: 01/12/19 09:45 Dose: 40 mg - Labs Labs: 01/12/19 05:30 01/12/19 05:30 PT 12.8 SECONDS (9.4-12.5) H 01/11/19 08:15 INR 1.13 01/11/19 08:15 APTT 32.8 Seconds (26.9-38.3) 01/11/19 08:15 - Constitutional Appears: Other (now extubated and off sedation) - Head Exam Head Exam: ATRAUMATIC, NORMOCEPHALIC - Eye Exam Eye Exam: absent: EOMI, PERRL (pupils sluggish, only minimally reactive) Additional comments: not opening eyes spontaneously - ENT Exam ENT Exam: Mucous Membranes Moist - Neck Exam Neck Exam: absent: Lymphadenopathy - Respiratory Exam Respiratory Exam: Rhonchi (coarse breath sounds b/l). absent: Rales, Wheezes - Cardiovascular Exam Cardiovascular Exam: Tachycardia, Irregular Rhythm. absent: Gallop, Rubs, Murmur - GI/Abdominal Exam GI & Abdominal Exam: Soft. absent: Distended, Guarding - Extremities Exam Extremities Exam: absent: Pedal Edema - Neurological Exam Additional comments: now off sedation and extubated, not opening eyes spontaneously - Skin Skin Exam: Dry, Intact, Warm Assessment and Plan - Assessment and Plan (Free Text) Assessment: 83 yo F with PMH of AFib (and non-compliance with eliquis), CAD (s/p PCI), CVA (w/residual R-sided weakness), HTN, HLD, DM2 (last A1c 7.0), and breast CA (s/p lumpectomy) originally presented to ED with a complaint of dizziness, nausea/vomiting, and worsened R-sided weakness/instability. Code stroke was called. She was found to have acute large L cerebellar CVA on initial head CT. Cerebral edema continued to worsen, prompting her immediate intubation and transfer to MICU. Plan: Acute L cerebellar CVA Repeat head CT showed interval development of globe acute infarction in R cerebral hemisphere w/diffuse cerebral edema Head CT also showed worsened 7 mm midline shift with acute thrombus identified in R MCA and M2 branches in the sylvian fissure Patient was extubated yesterday evening at the request of her family Now transitioning to comfort care, morphine 2 mg IVP q4h PRN for pain, respiratory distress TTE shoed EF of 55-60%, moderate to severe pulm HTN, TR but not concerning for thrombosis Continue mannitol per neurology recs Neurology, neurosurgery following, all recs appreciated Coffee ground emesis May be 2/2 Leticia[place] tear from prior forceful, frequent vomiting Continue protonix Transitioning to comfort care, no role for acute GI intervention at this time AFib Patient reported being non-complaint with home eliquis Continues to be in AFib, but now transitioning to comfort care HTN Hold home BP meds, allowing for permissive HTN Hx CVA w/residual R-sided weakness Was on ASA monotherapy at home prior and admitted to being non-complaint with eliquis for AFib May continue ASA RC CAD s/p PCI Continue ASA RC No active issues DM2 Last A1c 7 Continue ISS - low DVT/GI PPX: SCD/protonix Full Code NPO Monitor in MICU Patient seen, examined with, and plan discussed with my attending Dr. Iris Ramirez D.O. IM Resident PGY-1 Pager: [phone] <Rebeca Gonzales R - Last Filed: 01/13/19 16:01> Objective - Vital Signs/Intake and Output Vital Signs (last 24 hours): Temp Pulse Resp BP Pulse Ox 100.3 F H 129 H 32 H 210/131 H 90 L 01/13/19 06:00 01/13/19 14:00 01/13/19 14:00 01/13/19 14:00 01/13/19 14:00 Intake and Output: 01/13/19 01/13/19 06:59 18:59 Intake Total 0 Output Total 800 350 Balance -800 -350 - Medications Medications: Current Medications Amlodipine Besylate (Norvasc) 10 mg PO DAILY [facility] Last Admin: 01/10/19 10:20 Dose: Not Given Aspirin (Aspirin Supp) 600 mg RC DAILY [facility] Last Admin: 01/13/19 11:26 Dose: Not Given Atorvastatin Calcium (Lipitor) 10 mg PO QAM [facility] Last Admin: 01/10/19 10:21 Dose: Not Given Dexamethasone (Decadron Inj) 4 mg IVP Q6 [facility] Last Admin: 01/12/19 12:06 Dose: 4 mg Sodium Chloride (Sodium Chloride 0.45%) 1,000 mls @ 50 mls/hr IV .Q20H [facility] Last Admin: 01/11/19 12:38 Dose: 50 mls/hr Levetiracetam (Keppra 500mg Ivpb) 500 mg in 100 mls @ 200 mls/hr IVPB Q12 [facility] Last Admin: 01/12/19 09:45 Dose: 200 mls/hr Mannitol 25 gm/ IV SUPPLIES 100 mls @ 100 mls/hr IV Q6H [facility] Last Admin: 01/12/19 14:21 Dose: 100 mls/hr Insulin Human Regular (Humulin R Low) 0 units SC Q6 [facility]; Protocol Last Admin: 01/12/19 12:06 Dose: 1 unit Meclizine HCl (Antivert) 25 mg PO Q6H [facility] Last Admin: 01/10/19 15:22 Dose: Not Given Metoprolol Succinate (Toprol Xl) 100 mg PO BRK [facility] Last Admin: 01/10/19 10:21 Dose: Not Given Morphine Sulfate (Morphine) 2 mg IVP Q4H PRN PRN Reason: Pain, severe (8-10) Ondansetron HCl (Zofran Inj) 4 mg IVP Q4H PRN PRN Reason: Nausea/Vomiting Last Admin: 01/10/19 10:19 Dose: 4 mg Pantoprazole Sodium (Protonix Inj) 40 mg IVP DAILY [facility] Last Admin: 01/12/19 09:45 Dose: 40 mg - Labs Labs: 01/12/19 05:30 01/12/19 05:30 PT 12.8 SECONDS (9.4-12.5) H 01/11/19 08:15 INR 1.13 01/11/19 08:15 APTT 32.8 Seconds (26.9-38.3) 01/11/19 08:15 Attending/Attestation - Attestation I have personally seen and examined this patient.: Yes I have fully participated in the care of the patient.: Yes I have reviewed all pertinent clinical information, including history, physical exam and plan: Yes Notes (Text): Patient seen and examined by me with resident at approximately 8:15AM on 01/13/19. Case including HPI, physical exam, and assessment and plan discussed with resident. Agree with above with following additions/corrections. Patient is an 83-year-old female with past medical history significant for atrial fibrillation, coronary artery disease status post bare metal stent placement, CVA with mild right-sided weakness, hypertension, hyperlipidemia, type 2 diabetes, right breast cancer status post lumpectomy, and dizziness to presented to the emergency room with complaints of dizziness, nausea, and vomiting. Patient extubated last night per family's request. Patient is comfort care. Patient resting comfortably. Unresponsive. Physical exam: General: Resting comfortable. Not responsive. HEENT: Patient is not opening eyes. Pupils sluggish. Cardiovascular: Tachycardic. Irregularly irregular rhythm. No murmurs, rubs, or gallops appreciated Pulmonary: Some gurgling and coarse breath sounds auscultated anteriorly. Gastrointestinal: Soft, nondistended. Positive bowel sounds all 4 quadrants. No guarding. Musculoskeletal: Not moving extremities. No edema appreciated. Central nervous system: Unresponsive. Dermatologic: Skin warm and dry. Assessment and plan: Patient is an 83-year-old female with past medical history significant for atrial fibrillation, coronary artery disease status post bare metal stent placement, CVA with mild right-sided weakness, hypertension, hy perlipidemia, type 2 diabetes, right breast cancer status post lumpectomy, and dizziness to presented to the emergency room with complaints of dizziness, nausea, and vomiting. 1. Acute large left cerebellar CVA. Medications held as requested by family. Patient comfort care. Continue with morphine as needed. Neurology recommendations appreciated. Neurosurgery recommendations appreciated. Patient's family refused surgical intervention. CT brain this AM per radiologist showed intervertebral development of global acute infarction in the right cerebral hemisphere with diffuse cerebral edema, mass effect, and effacement of the right lateral ventricle and brainstem; 7 mm midline shift from right to left and subfalcine herniation; acute thrombus identified in the right middle cerebral artery and M2 branches and sylvian fissure; evolving late acute/late subacute bilateral cerebral hemisphere infarctions, worse on the left with stable obstructive hydrocephalus. MRI brain per radiologist showed an acute infarct in the inferior left cerebellar hemisphere in the distribution of the posterior inf erior cerebellar artery, also involves to left cerebellar tonsil, associated edema and mass effect with swelling of the left cerebellar hemisphere, no evidence of herniation. 2-D echo per civilian technician showed left ventricle is normal size, mild concentric left ventricular hypertrophy, left ventricular function is normal, EF 55-60%, mild aortic regurgitation, mitral regurgitation is mild to moderate, moderate tricuspid regurgitation, moderate to severe pulmonary hypertension, no pericardial effusion, no thrombus or vegetation noted, patient in A. fib at time of study. 2. Dizziness with persistent nausea and vomiting. Secondary to #1. 3. Coffee ground emesis. GI recommendations appreciated. Medications held. 4. Atrial fibrillation. Patient was not taking Eliquis at home as prescribed previously. Confirmed with patient's pharmacy, noncomplaint with other medications as well. Cardiology recommendations appreciated. 2-D echo as above. 5. Uncontrolled hypertension. Medications held as requested by family 6. History of CVA with right-sided weakness. Medications held as requested by family 7. CAD s/p stent. Cardiology recommendations appreciated. 2D echo read as above 8. DM2. Medications held as requested by family 9. Patient DNR. Family requesting comfort care only. Palliative care following. Case was discussed in detail with the patient's family at bedside. All questions answered.
[2019-01-13 11:37] VITALS: RESP 32
--- NOTE | 2019-01-13 12:55 | CP.CCUPN ---
<Theron Gomez - Last Filed: 01/13/19 12:47> CCU Subjective - Physician Review Subjective (Free Text): PGY-2 ICU progress note for Dr Cervantes Patient with dolls eyes, no corneal reflex, gag reflex. Family at bedside. Extubated yesterday as family requested. ROS not obtainable. 01/13/19 12:47 CCU Objective - Vital Signs / Intake & Output Vital Signs (Last 4 hours): Vital Signs Pulse Resp BP Pulse Ox 01/13/19 11:30 115 H 32 H 01/13/19 11:20 120 H 32 H 01/13/19 11:10 117 H 32 H 93 L 01/13/19 11:00 117 H 31 H 202/105 H 93 L 01/13/19 10:50 110 H 32 H 01/13/19 10:40 117 H 31 H 93 L 01/13/19 10:30 115 H 31 H 94 L 01/13/19 10:20 119 H 01/13/19 10:10 107 H 31 H 01/13/19 10:00 112 H 30 H 215/116 H 01/13/19 09:50 123 H 30 H 01/13/19 09:40 111 H 30 H 01/13/19 09:30 109 H 31 H 01/13/19 09:20 113 H 32 H 01/13/19 09:10 129 H 28 H 01/13/19 09:00 114 H 29 H 209/95 H 94 L 01/13/19 08:50 111 H 32 H 92 L Intake and Output (Last 8hrs): Intake & Output 01/12/19 01/13/19 01/13/19 22:59 06:59 14:59 Intake Total 300 0 Output Total 560 800 Balance -260 -800 Intake: IV 300 IVPB 300 Oral 0 Output: Urine 560 800 Urethral (Angelo) 560 800 - Physical Exam Physical Exam Limitations: Positive for: Altered Mental Status Head: Positive for: Atraumatic, Normocephalic Pupils: Positive for: Non-Reactive Extroacular Muscles: Positive for: Gaze Palsy Conjunctiva: Positive for: Normal Mouth: Positive for: Dry Respiratory/Chest: Positive for: Rales (intubated ) Cardiovascular: Positive for: Irregular Rhythm, Peripheal Pulses Present. Negative for: Murmurs, Tachycardic Abdomen: Positive for: Other (hypoactive bowel sounds). Negative for: Distention Lower Extremity: Positive for: Edema Neurological: Positive for: Other (pt intubated and non-responsive to pain, dolls eyes, no corneal or gag reflex). Negative for: GCS=15 Skin: Positive for: Warm, Dry, Cold Psychiatric: Negative for: Alert - Medications Active Medications: Active Medications Generic Name Dose Route Start Last Admin Trade Name Freq PRN Reason Stop Dose Admin Amlodipine Besylate 10 mg 01/09/19 10:00 01/10/19 10:20 Norvasc PO Not Given DAILY [facility] Aspirin 600 mg 01/10/19 14:45 01/13/19 11:26 Aspirin Supp RC Not Given DAILY [facility] Atorvastatin Calcium 10 mg 01/09/19 10:00 01/10/19 10:21 Lipitor PO Not Given QAM [facility] Dexamethasone 4 mg 01/11/19 12:00 01/12/19 12:06 Decadron Inj IVP 4 mg Q6 BECCA Administration Sodium Chloride 1,000 mls @ 50 mls/hr 01/10/19 15:45 01/11/19 12:38 Sodium Chloride 0.45% IV 50 mls/hr .Q20H BECCA Administration Levetiracetam 500 mg in 100 mls @ 200 mls/hr 01/11/19 10:00 01/12/19 09:45 Keppra 500mg Ivpb IVPB 200 mls/hr Q12 [facility] Administration Mannitol 25 gm/ IV SUPPLIES 100 mls @ 100 mls/hr 01/11/19 14:09 01/12/19 14:21 IV 100 mls/hr Q6H [facility] Administration Insulin Human Regular 0 units 01/12/19 00:00 01/12/19 12:06 Humulin R Low SC 1 unit Q6 [facility] Administration Protocol Meclizine HCl 25 mg 01/09/19 06:30 01/10/19 15:22 Antivert PO Not Given Q6H [facility] Metoprolol Succinate 100 mg 01/09/19 11:00 01/10/19 10:21 Toprol Xl PO Not Given BRK [facility] Morphine Sulfate 2 mg 01/12/19 18:26 Morphine IVP Q4H PRN Pain, severe (8-10) Ondansetron HCl 4 mg 01/09/19 08:44 05/09/19 10:19 Zofran Inj IVP 4 mg Q4H PRN Administration Nausea/Vomiting Pantoprazole Sodium 40 mg 01/11/19 10:00 01/12/19 09:45 Protonix Inj IVP 40 mg DAILY [facility] Administration - Patient Studies Lab Studies: Microbiology Studies 01/10/19 20:41 MRSA Culture (Admit) - Final Naris MRSA NOT DETECTED Fingerstick Blood Sugar Results: 199 Review of Systems - Review of Systems Systems not reviewed;Unavailable: Altered Mental Status Critical Care Progress Note - Nutrition Nutrition: Nutrition Category Date Time Status NPO Diet [DIET] Diets 01/10/19 Lunch Ordered Assessment/Plan - Assessment and Plan (Free Text) Plan: Mrs Arellano is a 83 year old female with a PMHx of Afib (not on anticoagulation), CAD s/p BM LAD stent on ASA/plavix, 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 An MRI conducted showed acute CVA in the inferior left cerebellar hemisphere with edema and mass effect. 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 - was intubated and sedated on propofol -neurosurgery offered neurosurgical intervention w/ explanation of risks/benefits - the family has refused; neurosurgery recommends continued aggressive medical tx and if no improvement in 48 hrs then palliative care -patient requested extubation yesterday 01/12/19 and only comfort measures such as morphine 2mg ivp if there is indication of pain or suffering -discontinued at family's request: aspirin 600mg rc qd, mannitol 25% 100ml iv q6h, decadron 4mg ivp q6, 1/2NS 50cc/hr, keppra 500mg ivpb q12 -lipid panel shows triglycerides of 200 otherwise normal -echo 01/10/19: EF 55%, mod to severe pulm HTN, no thrombus or vegetation noted, mild concentric LV hypertrophy -MRI 01/10/19: * acute CVA in the inferior left cerebellar hemisphere with edema and mass effect -CTA head/neck 01/10/19: * unremarkable -CT head w/o contrast 01/09/19: * Age-appropriate age related neuro degenerative findings are identified as discussed above. Examination not dramatically changed compared prior brain MRI 07/18/2014. No definite acute findings as per standard CT criteria. -CT head w/o contrast 01/11/19: * diffuse swelling of left cerebellar hemisphere consistent w/ an acute infarct, the findings appear to be unchanged compared to prior MRI, there is some mass effect w/ midline shift in posterior fossa and compression of 4th ventricle, no associated hydrocephalus -CT head 01/12/19: * interval development of globe acute infarction in right cerebral hemisphere with diffuse cerebral edema, mass effect and effacement of right lateral ventricle and brainstem, 7mm midline shift from right to left and subfalcine herniation; acute thrombus is identified in right middle cerebral artery and M2 branches in sylvian fissure; evolving late acute/late subacte bilateral cerebellar hemisphere infarctions, worse on left with stable obstructive hydrocephalus -palliative consulted, Mrs Markham -neurology consulted, Dr Ernst -neurosurgery consulted, Dr Cornejo GI #concern for coffee ground emesis -discontinued at family's request: protonix 40mg ivp bid -seen by GI, Dr Paniagua -Per GI, no present concern for GI bleeding - patient is OK to start anticoagulation for atrial fibrillation -GI has signed off as persistent nausea/vomiting likely due to acute stroke Cardiovascular #Afib, Rate controlled -patient was not taking AO at home prior to arrival -currently holding home toprol 100mg po qd and amlodipine 10mg po qd -cardiology consulted, Dr Hilton #Hypertensive -allow permissive hypertension for now Endocrine #DM2 -Hgba1c 7.0 -discontinued tx at family's request Infectious Disease -afebrile -no active ID issues Pulmonary #Unstable Airway -extubated 01/12/2019 Dispo: On 01/12/19 family requested terminal extubation - they stated they only want comfort measures and want patient to pass peacefully - morphine 2mg ivp on standby if indication of suffering or discomfort. As patient is now comfort care only, order has been placed to transfer to med/surg. Seen and discussed with Dr Cervantes <Lucho Cervantes - Last Filed: 01/13/19 18:00> CCU Objective - Vital Signs / Intake & Output Vital Signs (Last 4 hours): Vital Signs Pulse Resp BP Pulse Ox 01/13/19 14:00 129 H 32 H 210/131 H 90 L Intake and Output (Last 8hrs): Intake & Output 01/13/19 01/13/19 01/13/19 06:59 14:59 22:59 Intake Total 0 Output Total 800 350 Balance -800 -350 Intake: Oral 0 Output: Urine 800 Urethral (Angelo) 800 Stool 350 Other: # Bowel Movements 0 - Medications Active Medications: Active Medications Generic Name Dose Route Start Last Admin Trade Name Freq PRN Reason Stop Dose Admin Amlodipine Besylate 10 mg 01/09/19 10:00 01/10/19 10:20 Norvasc PO Not Given DAILY [facility] Aspirin 600 mg 01/10/19 14:45 01/13/19 11:26 Aspirin Supp RC Not Given DAILY [facility] Atorvastatin Calcium 10 mg 01/09/19 10:00 01/10/19 10:21 Lipitor PO Not Given QAM [facility] Dexamethasone 4 mg 01/11/19 12:00 01/12/19 12:06 Decadron Inj IVP 4 mg Q6 [facility] Administration Sodium Chloride 1,000 mls @ 50 mls/hr 01/10/19 15:45 01/11/19 12:38 Sodium Chloride 0.45% IV 50 mls/hr .Q20H [facility] Administration Levetiracetam 500 mg in 100 mls @ 200 mls/hr 01/11/19 10:00 01/12/19 09:45 Keppra 500mg Ivpb IVPB 200 mls/hr Q12 [facility] Administration Mannitol 25 gm/ IV SUPPLIES 100 mls @ 100 mls/hr 01/11/19 14:09 01/12/19 14:21 IV 100 mls/hr Q6H [facility] Administration Insulin Human Regular 0 units 01/12/19 00:00 01/12/19 12:06 Humulin R Low SC 1 unit Q6 [facility] Administration Protocol Meclizine HCl 25 mg 01/09/19 06:30 01/10/19 15:22 Antivert PO Not Given Q6H [facility] Metoprolol Succinate 100 mg 01/09/19 11:00 01/10/19 10:21 Toprol Xl PO Not Given BRK [facility] Morphine Sulfate 2 mg 01/12/19 18:26 Morphine IVP Q4H PRN Pain, severe (8-10) Ondansetron HCl 4 mg 01/09/19 08:44 01/10/19 10:19 Zofran Inj IVP 4 mg Q4H PRN Administration Nausea/Vomiting Pantoprazole Sodium 40 mg 01/11/19 10:00 01/12/19 09:45 Protonix Inj IVP 40 mg DAILY BECCA Administration Critical Care Progress Note - Nutrition Nutrition: Nutrition Category Date Time Status NPO Diet [DIET] Diets 01/10/19 Lunch Ordered Attending/Attestation - Attestation I have personally seen and examined this patient.: Yes I have fully participated in the care of the patient.: Yes I have reviewed all pertinent clinical information: Yes Notes (Text): 01/13/19 17:57 dnr/dni, comfort care, terminally extubated yesterday. ok to downgrade to [facility]
[2019-01-13 14:34] VITALS: BP 210/131; PULSE 129; O2SAT 90
--- NOTE | 2019-01-14 06:42 | CP.PCM.PN ---
Subjective - Date & Time of Evaluation Date of Evaluation: 01/14/19 Time of Evaluation: 06:15 - Subjective Subjective: No distress, unresponsive to verbal stimuli,family at bedside Reason for consultation and follow up: Cardiac follow up, history of coronary artery disease, history of atrial fibrillation, admitted for stroke, intubated for respiratory distress, DNR Seen and examined by me and Dr. Hilton Objective - Vital Signs/Intake and Output Vital Signs (last 24 hours): Temp Pulse Resp BP Pulse Ox 100.3 F H 129 H 32 H 210/131 H 90 L 01/13/19 06:00 01/13/19 14:00 01/13/19 14:00 01/13/19 14:00 01/13/19 14:00 Intake and Output: 01/13/19 01/14/19 18:59 06:59 Intake Total 200 Output Total 350 40 Balance -350 160 - Medications Medications: Current Medications Amlodipine Besylate (Norvasc) 10 mg PO DAILY [facility] Last Admin: 01/10/19 10:20 Dose: Not Given Aspirin (Aspirin Supp) 600 mg RC DAILY [facility] Last Admin: 01/13/19 11:26 Dose: Not Given Atorvastatin Calcium (Lipitor) 10 mg PO QAM [facility] Last Admin: 01/10/19 10:21 Dose: Not Given Dexamethasone (Decadron Inj) 4 mg IVP Q6 [facility] Last Admin: 01/12/19 12:06 Dose: 4 mg Sodium Chloride (Sodium Chloride 0.45%) 1,000 mls @ 50 mls/hr IV .Q20H [facility] Last Admin: 01/11/19 12:38 Dose: 50 mls/hr Levetiracetam (Keppra 500mg Ivpb) 500 mg in 100 mls @ 200 mls/hr IVPB Q12 [facility] Last Admin: 01/12/19 09:45 Dose: 200 mls/hr Mannitol 25 gm/ IV SUPPLIES 100 mls @ 100 mls/hr IV Q6H [facility] Last Admin: 01/12/19 14:21 Dose: 100 mls/hr Insulin Human Regular (Humulin R Low) 0 units SC Q6 [facility]; Protocol Last Admin: 01/12/19 12:06 Dose: 1 unit Meclizine HCl (Antivert) 25 mg PO Q6H [facility] Last Admin: 01/10/19 15:22 Dose: Not Given Metoprolol Succinate (Toprol Xl) 100 mg PO BRK [facility] Last Admin: 01/10/19 10:21 Dose: Not Given Morphine Sulfate (Morphine) 2 mg IVP Q4H PRN PRN Reason: Pain, severe (8-10) Ondansetron HCl (Zofran Inj) 4 mg IVP Q4H PRN PRN Reason: Nausea/Vomiting Last Admin: 01/10/19 10:19 Dose: 4 mg Pantoprazole Sodium (Protonix Inj) 40 mg IVP DAILY [facility] Last Admin: 01/12/19 09:45 Dose: 40 mg - Labs Labs: 01/12/19 05:30 01/12/19 05:30 PT 12.8 SECONDS (9.4-12.5) H 01/11/19 08:15 INR 1.13 01/11/19 08:15 APTT 32.8 Seconds (26.9-38.3) 01/11/19 08:15 - Constitutional Appears: Non-toxic, No Acute Distress - Head Exam Head Exam: NORMAL INSPECTION, NORMOCEPHALIC - ENT Exam ENT Exam: Mucous Membranes Dry - Respiratory Exam Respiratory Exam: Decreased Breath Sounds, NORMAL BREATHING PATTERN - Cardiovascular Exam Cardiovascular Exam: +S1, +S2 - GI/Abdominal Exam GI & Abdominal Exam: Soft, Normal Bowel Sounds - Neurological Exam Additional comments: unresponsive to verbal and painful stimuli - Skin Skin Exam: Dry, Warm Assessment and Plan - Assessment and Plan (Free Text) Assessment: An 83 year old female who came in to the ER due to dizziness and altered mental status. MRI of the brain showed acute infarct in the inferior left cerebral hemisphere and distribution of posterior cerebral artery. History of coronary artery disease, bare metal stent in the LAD (04/2018). She was put on Aspirin and Eliquis, Non compliant with medications. History of atrial fibrillation, di abetes,cholecystectomy , breast cancer post right lumpectomy, hypertension,hyperlipidemia, diabetes, CVA with mild right sided weakness. Neuro on consult. Echo done and showed Mild concentric LVH, LVEF 55-60%, mild AR,mild to moderate MR, moderate TR, RVSP 61 mmHg, moderate to severe pulmonary hypertension. no thrombus or vegetation. Atrial fibrillation. Patient had respiratory distress thus intubated and admitted to ICU. Neurosurgery evaluated patient and not a surgical candidate. Family decided DNR. Extubated and transferred to Medical unit. Supportive care. Family at bedside. Plan: No distress Unresponsive to pain and verbal stimuli Family at bedside, spoke at length prognosis of patient DNR Supportive care Change medications to IV Continue current treatment Poor prognosis Will sign off and follow up as needed Plan and treatment discussed with Dr. Hilton
--- NOTE | 2019-01-14 08:00 | CP.PCM.PRO ---
Pronouncement of Note - Clinical Findings Physical Exam: No Response Verbal/Painful Stimuli, Absent Peripheral Puls es{Carotid & Femoral}, Absent Heart & Breath Sounds, Pupils Fixed & Dilated, Absence of Vital Signs - Pronouncement Time Time of Pronouncement of : 07:49 Additional Comments: Estimated time of , family notified nursing some time after patient stopped visibly breathing - Notifications Pronouncement Notifications: Family Notified (at bedside), Atending Notified L[employer] D[employer]er Notified: Yes - Autopsy Autopsy Requested: No - [place] [id number]
--- NOTE | 2019-01-14 13:37 | CP.PCM.PN ---
Subjective - Date & Time of Evaluation Date of Evaluation: 01/14/19 Time of Evaluation: 08:00 - Subjective Subjective: Agonal breathing end of life Objective - Vital Signs/Intake and Output Vital Signs (last 24 hours): Temp Pulse Resp BP Pulse Ox 100.3 F H 129 H 32 H 210/131 H 90 L 01/13/19 06:00 01/13/19 14:00 01/13/19 14:00 01/13/19 14:00 01/13/19 14:00 Intake and Output: 01/14/19 01/14/19 06:59 18:59 Intake Total 200 Output Total 40 Balance 160 - Labs Labs: 01/12/19 05:30 01/12/19 05:30 PT 12.8 SECONDS (9.4-12.5) H 01/11/19 08:15 INR 1.13 01/11/19 08:15 APTT 32.8 Seconds (26.9-38.3) 01/11/19 08:15 - Constitutional Appears: Chronically Ill - Eye Exam Pupil Exam: Fixed - ENT Exam ENT Exam: Mucous Membranes Dry - Respiratory Exam Respiratory Exam: Decreased Breath Sounds Additional comments: irregular - Cardiovascular Exam Cardiovascular Exam: Bradycardia - GI/Abdominal Exam GI & Abdominal Exam: Hypoactive Bowel Sounds - Extremities Exam Additional comments: decreased pulses - Skin Skin Exam: Dry, Pallor Assessment and Plan - Assessment and Plan (Free Text) Assessment: 83 year old female with hsotu of coronary artery disease, s/p LAD stent,atrial fibrillation, diabetes,cholecystectomy, breast cancer s/p right lumpectomy, hypertension,hyperlipidemia, diabetes, CVA with mild right sided weakness who is admitted with AMS,HTN. MRI of the brain Patient had respiratory distress and was intubated Neurosurgery evaluated patient and not a surgical candidate. Family decided DNR with terminal extubation on 01/12. She was transferred to medical floor with comfort care in place Family at bedside Explained that patient was very near end of life. Signs of impending explained. Family is expecting and accepting of this outcome. A few minutes later patient . End of life counseling, psychosocial support provided. called at family's request. Time spent with family in end of life counseling, 20 minutes
--- NOTE | 2019-01-14 13:50 | CP.PCM.DIS ---
<Alfredo Johansen - Last Filed: 01/14/19 16:22> Provider - Provider Date of Admission: 01/10/19 14:14 Attending physician: Rebeca Gonzales DO Primary care physician: Teagan Pearce MD Consults: 01/09/19 10:04 Cardiology Consult Routine Comment: Consulting Provider: Jie Hilton Consulting Physician: Jie Hilton Reason for Consult: hx of afib, s/p stent, on plavix Gastroenterology Consult Routine Comment: Consulting Provider: Rukhsana Paniagua Consulting Physician: Rukhsana Paniagua Reason for Consult: coffee ground emesis 01/09/19 12:17 Neurology Consult Routine Comment: Consulting Provider: Jennifer Ernst Consulting Physician: Jennifer Ernst Reason for Consult: dizziness, nausea, vomiting 01/09/19 23:04 Nursing Referral for Wound Care Routine Comment: Physician Instructions: Reason For Exam: protocol 01/10/19 14:30 Critical Care Consult Routine Comment: Consulting Provider: Mary Miller Consulting Physician: Mary Miller Reason for Consult: lrg cerebellar infarct 01/10/19 14:31 Consult [Physician Consult] Routine Comment: Consulting Provider: Mary Miller Consulting Physician: Mary Miller Reason for Consult: icu eval for large cerebellar stroke 01/10/19 14:37 Physician Consult Routine Comment: Consulting Provider: Ferdinand Cornejo Consulting Physician: Ferdinand Cornejo Reason for Consult: cerebellar infarct 01/11/19 08:08 Palliative Care Consult Routine Comment: Consulting Provider: Angela Markham Physician Instructions: Reason For Exam: cerebellar stroke, brain herniation 01/11/19 09:49 Palliative Care Consult Routine Comment: Consulting Provider: Angela Markham Physician Instructions: Reason For Exam: goals of care discussion 01/14/19 07:23 Consult [Physician Consult] Routine Comment: Consulting Provider: Angela Markham Consulting Physician: Angela Markham Reason for Consult: comfort vs hospice care Time Spent in preparation of Discharge (in minutes): 45 Hospital Course - Lab Results Lab Results: Micro Results 01/10/19 20:41 Naris MRSA Culture (Admit) - Final MRSA NOT DETECTED Most Recent Lab Values WBC 16.7 10^3/uL (4.5-11.0) H D 01/12/19 05:30 RBC 5.16 10^6/uL (3.5-6.1) 01/12/19 05:30 Hgb 16.0 g/dL (12.0-16.0) 01/12/19 05:30 Hct 47.7 % (36.0-48.0) 01/12/19 05:30 MCV 92.4 fl (80.0-105.0) 01/12/19 05:30 MCH 31.0 pg (25.0-35.0) 01/12/19 05:30 MCHC 33.5 g/dl (31.0-37.0) 01/12/19 05:30 RDW 14.1 % (11.5-14.5) 01/12/19 05:30 Plt Count 166 10^3/uL (120.0-450.0) 01/12/19 05:30 MPV 10.2 fl (7.0-11.0) 01/12/19 05:30 Neut % (Auto) 92.1 % (50.0-68.0) H 01/12/19 05:30 Lymph % (Auto) 4.0 % (22.0-35.0) L 01/12/19 05:30 [place] % (Auto) 3.9 % (1.0-6.0) 01/12/19 05:30 Eos % (Auto) 0.0 % (1.5-5.0) L 01/12/19 05:30 Baso % (Auto) 0.0 % (0.0-3.0) 01/12/19 05:30 Lymph # (Auto) 0.7 (1.2-3.4) L 01/12/19 05:30 [place] # (Auto) 0.7 (0.1-0.6) H 01/12/19 05:30 Eos # (Auto) 0.0 (0.0-0.7) 01/12/19 05:30 Baso # (Auto) 0.00 K/mm3 (0.0-2.0) 01/12/19 05:30 Absolute Neuts (auto) 15.41 (1.4-6.5) H 01/12/19 05:30 Neutrophils % (Manual) 91 % (50.0-70.0) H 01/10/19 06:30 Lymphocytes % (Manual) 9 % (22.0-35.0) L 01/10/19 06:30 Monocytes % (Manual) TEST NOT PERFORMED 01/10/19 06:30 Platelet Evaluation Normal (NORMAL) 01/10/19 06:30 PT 12.8 SECONDS (9.4-12.5) H 01/11/19 08:15 INR 1.13 01/11/19 08:15 APTT 32.8 Seconds (26.9-38.3) 01/11/19 08:15 pCO2 35 mm/Hg (35-45) 01/12/19 06:00 pO2 229.0 mm/Hg (80-100) H 01/12/19 06:00 HCO3 24.9 mmol/L (21-28) 01/12/19 06:00 ABG pH 7.46 (7.35-7.45) H 01/12/19 06:00 ABG Total CO2 26.0 mmol.L (22-28) 01/12/19 06:00 ABG O2 Saturation 99.7 % (95-98) H 01/12/19 06:00 ABG O2 Content 22.3 ML/dl (15-23) 01/12/19 06:00 ABG Base Excess 1.5 mmol/L (-2.0-3.0) 01/12/19 06:00 ABG Hemoglobin 16.0 g/dL (11.7-17.4) 01/12/19 06:00 ABG Carboxyhemoglobin 1.4 % (0.5-1.5) 01/12/19 06:00 POC ABG HHb (Measured) 0.3 % (0-5) 01/12/19 06:00 ABG Methemoglobin 1.3 % (0.0-3.0) 01/12/19 06:00 ABG O2 Capacity 22.4 mL/dl (16-24) 01/12/19 06:00 Hgb O2 Saturation 96.9 % (95.0-98.0) 01/12/19 06:00 FiO2 60.0 % 01/12/19 06:00 Sodium 139 mmol/L (132-148) 01/12/19 05:30 Potassium 3.9 mmol/L (3.6-5.0) 01/12/19 05:30 Chloride 104 mmol/L (98-107) 01/12/19 05:30 Carbon Dioxide 27 mmol/L (21-33) 01/12/19 05:30 Anion Gap 13 (10-20) 01/12/19 05:30 BUN 18 mg/dL (7-21) 01/12/19 05:30 Creatinine 0.7 mg/dl (0.7-1.2) 01/12/19 05:30 Est GFR ( Amer) > 60 01/12/19 05:30 Est GFR (Non-Af Amer) > 60 01/12/19 05:30 POC Glucose (mg/dL) 199 mg/dL (65-110) H 01/12/19 11:56 Random Glucose 218 mg/dL (70-110) H 01/12/19 05:30 Hemoglobin A1c 7.0 % (4.2-6.5) H 01/11/19 05:30 Calcium 8.9 mg/dL (8.4-10.5) 01/12/19 05:30 Phosphorus 2.1 mg/dL (2.5-4.5) L 01/12/19 05:30 Magnesium 2.4 mg/dL (1.7-2.2) H 01/12/19 05:30 Total Bilirubin 0.8 mg/dL (0.2-1.3) 01/12/19 05:30 AST 52 U/L (14-36) H D 01/12/19 05:30 ALT 22 U/L (7-56) 01/12/19 05:30 Alkaline Phosphatase 72 U/L (38-126) 01/12/19 05:30 Troponin I 0.02 ng/mL 01/09/19 17:45 Total Protein 7.4 g/dL (5.8-8.3) 01/12/19 05:30 Albumin 3.9 g/dL (3.0-4.8) 01/12/19 05:30 Globulin 3.5 gm/dL 01/12/19 05:30 Albumin/Globulin Ratio 1.1 (1.1-1.8) 01/12/19 05:30 Triglycerides 253 mg/dL (35-160) H 01/11/19 05:30 Cholesterol 143 mg/dL (130-200) 01/11/19 05:30 LDL Cholesterol Direct 91 mg/dL (0-129) 01/11/19 05:30 HDL Cholesterol 38 mg/dL (29-60) 01/11/19 05:30 Free T4 1.13 ng/dL (0.78-2.19) 01/09/19 03:27 TSH 3rd Generation 0.69 mIU/mL (0.46-4.68) 01/11/19 05:30 Urine Color Straw (YELLOW) 01/09/19 05:39 Urine Appearance Clear (CLEAR) 01/09/19 05:39 Urine pH 7.0 (4.7-8.0) 01/09/19 05:39 Ur Specific [place] 1.020 (1.005-1.035) 01/09/19 05:39 Urine Protein 100 mg/dL (<30 mg/dL) H 01/09/19 05:39 Urine Glucose (UA) 100 mg/dL (NEGATIVE) H 01/09/19 05:39 Urine Ketones Negative mg/dL (NEGATIVE) 01/09/19 05:39 Urine Blood Small (NEGATIVE) H 01/09/19 05:39 Urine Nitrate Negative (NEGATIVE) 01/09/19 05:39 Urine Bilirubin Negative (NEGATIVE) 01/09/19 05:39 Urine Urobilinogen 0.2 E.U./dL (<1 E.U./dL) 01/09/19 05:39 Ur Leukocyte Esterase Negative Tae/uL (NEGATIVE) 01/09/19 05:39 Urine RBC 0 - 2 /hpf (0-2) 01/09/19 05:39 Urine WBC 0 - 2 /hpf (0-6) 01/09/19 05:39 Ur Epithelial Cells 1 - 3 /hpf (0-5) 01/09/19 05:39 Urine Bacteria Few /hpf (NONE) 01/09/19 05:39 Influenza Typ A,B (EIA) Negative for flu a/b (NEGATIVE) 01/09/19 05:39 - Hospital Course Hospital Course: 83 year old female with a PMHx of Afib (not on anticoagulation), CAD s/p BM LAD stent on ASA/plavix, 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 An MRI conducted showed acute CVA in the inferior left cerebellar hemisphere with edema and mass effect. Echo 01/10/19 showed EF 55%, mod to severe pulm HTN, no thrombus or vegetation noted, mild concentric LV hypertrophyPatient got cl inically worsened manager package 01/11/19 - was intubated and sedated on propofol. Patient was transferred to ICU for close observation. Neurosurgery, Dr Cornejo, offered neurosurgical intervention w/ explanation of risks/benefits - the family has refused; neurosurgery recommends continued aggressive medical tx and if no improvement in 48 hrs then palliative care. Family requested extubation yesterday 01/12/19 and only comfort measures such as morphine 2mg ivp if there is indication of pain or suffering. She was followed by neurologist, Dr Ernst, pin chaser, , Dr Hilton as well. Palliative care was following, Mrs Markham. Family at bedside Explained that patient was very near end of life. Signs of impending explained. Family is expecting and accepting of this outcome. A few minutes later patient . End of life counseling, psychosocial support provided. Blue Print Control Clerk called at family's request. Discharge Exam - Head Exam Head Exam: NORMAL INSPECTION, NORMOCEPHALIC - Additional Findings Additional findings: patient Discharge Plan - Follow Up Plan Condition: GOOD Disposition: WITH WITHOUT AUTOPSY Referrals: Teagan Pearce MD [Primary Care Provider] - <Indy Dwyer - Last Filed: 01/14/19 17:01> Provider - Provider Date of Admission: 01/10/19 14:14 Attending physician: Rebeca Gonzales DO Primary care physician: Teagan Pearce MD Consults: 01/09/19 10:04 Cardiology Consult Routine Comment: Consulting Provider: Jie Hilton Consulting Physician: Jie Hilton Reason for Consult: hx of afib, s/p stent, on plavix Gastroenterology Consult Routine Comment: Consulting Provider: Rukhsana Paniagua Consulting Physician: Rukhsana Paniagua Reason for Consult: coffee ground emesis 01/09/19 12:17 Neurology Consult Routine Comment: Consulting Provider: Jennifer Ernst Consulting Physician: Jennifer Ernst Reason for Consult: dizziness, nausea, vomiting 01/09/19 23:04 Nursing Referral for Wound Care Routine Comment: Physician Instructions: Reason For Exam: protocol 01/10/19 14:30 Critical Care Consult Routine Comment: Consulting Provider: Mary Miller Consulting Physician: Mary Miller Reason for Consult: lrg cerebellar infarct 01/10/19 14:31 Consult [Physician Consult] Routine Comment: Consulting Provider: Mary Miller Consulting Physician: Mary Miller Reason for Consult: icu eval for large cerebellar stroke 01/10/19 14:37 Physician Consult Routine Comment: Consulting Provider: Ferdinand Cornejo Consulting Physician: Ferdinand Cornejo Reason for Consult: cerebellar infarct 01/11/19 08:08 Palliative Care Consult Routine Comment: Consulting Provider: Angela Markham Physician Instructions: Reason For Exam: cerebellar stroke, brain herniation 01/11/19 09:49 Palliative Care Consult Routine Comment: Consulting Provider: Angela Markham Physician Instructions: Reason For Exam: goals of care discussion 01/14/19 07:23 Consult [Physician Consult] Routine Comment: Consulting Provider: Angela Markham Consulting Physician: Angela Markham Reason for Consult: comfort vs hospice care Hospital Course - Lab Results Lab Results: Micro Results 01/10/19 20:41 Naris MRSA Culture (Admit) - Final MRSA NOT DETECTED Most Recent Lab Values WBC 16.7 10^3/uL (4.5-11.0) H D 01/12/19 05:30 RBC 5.16 10^6/uL (3.5-6.1) 01/12/19 05:30 Hgb 16.0 g/dL (12.0-16.0) 01/12/19 05:30 Hct 47.7 % (36.0-48.0) 01/12/19 05:30 MCV 92.4 fl (80.0-105.0) 01/12/19 05:30 MCH 31.0 pg (25.0-35.0) 01/12/19 05:30 MCHC 33.5 g/dl (31.0-37.0) 01/12/19 05:30 RDW 14.1 % (11.5-14.5) 01/12/19 05:30 Plt Count 166 10^3/uL (120.0-450.0) 01/12/19 05:30 MPV 10.2 fl (7.0-11.0) 01/12/19 05:30 Neut % (Auto) 92.1 % (50.0-68.0) H 01/12/19 05:30 Lymph % (Auto) 4.0 % (22.0-35.0) L 01/12/19 05:30 [place] % (Auto) 3.9 % (1.0-6.0) 01/12/19 05:30 Eos % (Auto) 0.0 % (1.5-5.0) L 01/12/19 05:30 Baso % (Auto) 0.0 % (0.0-3.0) 01/12/19 05:30 Lymph # (Auto) 0.7 (1.2-3.4) L 01/12/19 05:30 [place] # (Auto) 0.7 (0.1-0.6) H 01/12/19 05:30 Eos # (Auto) 0.0 (0.0-0.7) 01/12/19 05:30 Baso # (Auto) 0.00 K/mm3 (0.0-2.0) 01/12/19 05:30 Absolute Neuts (auto) 15.41 (1.4-6.5) H 01/12/19 05:30 Neutrophils % (Manual) 91 % (50.0-70.0) H 01/10/19 06:30 Lymphocytes % (Manual) 9 % (22.0-35.0) L 01/10/19 06:30 Monocytes % (Manual) TEST NOT PERFORMED 01/10/19 06:30 Platelet Evaluation Normal (NORMAL) 01/10/19 06:30 PT 12.8 SECONDS (9.4-12.5) H 01/11/19 08:15 INR 1.13 01/11/19 08:15 APTT 32.8 Seconds (26.9-38.3) 01/11/19 08:15 pCO2 35 mm/Hg (35-45) 01/12/19 06:00 pO2 229.0 mm/Hg (80-100) H 01/12/19 06:00 HCO3 24.9 mmol/L (21-28) 01/12/19 06:00 ABG pH 7.46 (7.35-7.45) H 01/12/19 06:00 ABG Total CO2 26.0 mmol.L (22-28) 01/12/19 06:00 ABG O2 Saturation 99.7 % (95-98) H 01/12/19 06:00 ABG O2 Content 22.3 ML/dl (15-23) 01/12/19 06:00 ABG Base Excess 1.5 mmol/L (-2.0-3.0) 01/12/19 06:00 ABG Hemoglobin 16.0 g/dL (11.7-17.4) 01/12/19 06:00 ABG Carboxyhemoglobin 1.4 % (0.5-1.5) 01/12/19 06:00 POC ABG HHb (Measured) 0.3 % (0-5) 01/12/19 06:00 ABG Methemoglobin 1.3 % (0.0-3.0) 01/12/19 06:00 ABG O2 Capacity 22.4 mL/dl (16-24) 01/12/19 06:00 Hgb O2 Saturation 96.9 % (95.0-98.0) 01/12/19 06:00 FiO2 60.0 % 01/12/19 06:00 Sodium 139 mmol/L (132-148) 01/12/19 05:30 Potassium 3.9 mmol/L (3.6-5.0) 01/12/19 05:30 Chloride 104 mmol/L (98-107) 01/12/19 05:30 Carbon Dioxide 27 mmol/L (21-33) 01/12/19 05:30 Anion Gap 13 (10-20) 01/12/19 05:30 BUN 18 mg/dL (7-21) 01/12/19 05:30 Creatinine 0.7 mg/dl (0.7-1.2) 01/12/19 05:30 Est GFR ( Amer) > 60 01/12/19 05:30 Est GFR (Non-Af Amer) > 60 01/12/19 05:30 POC Glucose (mg/dL) 199 mg/dL (65-110) H 01/12/19 11:56 Random Glucose 218 mg/dL (70-110) H 01/12/19 05:30 Hemoglobin A1c 7.0 % (4.2-6.5) H 01/11/19 05:30 Calcium 8.9 mg/dL (8.4-10.5) 01/12/19 05:30 Phosphorus 2.1 mg/dL (2.5-4.5) L 01/12/19 05:30 Magnesium 2.4 mg/dL (1.7-2.2) H 01/12/19 05:30 Total Bilirubin 0.8 mg/dL (0.2-1.3) 01/12/19 05:30 AST 52 U/L (14-36) H D 01/12/19 05:30 ALT 22 U/L (7-56) 01/12/19 05:30 Alkaline Phosphatase 72 U/L (38-126) 01/12/19 05:30 Troponin I 0.02 ng/mL 01/09/19 17:45 Total Protein 7.4 g/dL (5.8-8.3) 01/12/19 05:30 Albumin 3.9 g/dL (3.0-4.8) 01/12/19 05:30 Globulin 3.5 gm/dL 01/12/19 05:30 Albumin/Globulin Ratio 1.1 (1.1-1.8) 01/12/19 05:30 Triglycerides 253 mg/dL (35-160) H 01/11/19 05:30 Cholesterol 143 mg/dL (130-200) 01/11/19 05:30 LDL Cholesterol Direct 91 mg/dL (0-129) 01/11/19 05:30 HDL Cholesterol 38 mg/dL (29-60) 01/11/19 05:30 Free T4 1.13 ng/dL (0.78-2.19) 01/09/19 03:27 TSH 3rd Generation 0.69 mIU/mL (0.46-4.68) 01/11/19 05:30 Urine Color Straw (YELLOW) 01/09/19 05:39 Urine Appearance Clear (CLEAR) 01/09/19 05:39 Urine pH 7.0 (4.7-8.0) 01/09/19 05:39 Ur Specific [place] 1.020 (1.005-1.035) 01/09/19 05:39 Urine Protein 100 mg/dL (<30 mg/dL) H 01/09/19 05:39 Urine Glucose (UA) 100 mg/dL (NEGATIVE) H 01/09/19 05:39 Urine Ketones Negative mg/dL (NEGATIVE) 01/09/19 05:39 Urine Blood Small (NEGATIVE) H 01/09/19 05:39 Urine Nitrate Negative (NEGATIVE) 01/09/19 05:39 Urine Bilirubin Negative (NEGATIVE) 01/09/19 05:39 Urine Urobilinogen 0.2 E.U./dL (<1 E.U./dL) 01/09/19 05:39 Ur Leukocyte Esterase Negative Tae/uL (NEGATIVE) 01/09/19 05:39 Urine RBC 0 - 2 /hpf (0-2) 01/09/19 05:39 Urine WBC 0 - 2 /hpf (0-6) 01/09/19 05:39 Ur Epithelial Cells 1 - 3 /hpf (0-5) 01/09/19 05:39 Urine Bacteria Few /hpf (NONE) 01/09/19 05:39 Influenza Typ A,B (EIA) Negative for flu a/b (NEGATIVE) 01/09/19 05:39 Attending/Attestation - Attestation I have personally seen and examined this patient.: No I have fully participated in the care of the patient.: Yes I have reviewed all pertinent clinical information, including history, physical exam and plan: Yes Notes (Text): 01/14/19 16:57 Attending note; I was called by the resident about the patient's expiration. Patient was on comfort care. Family by the bedside. Informed by the resident and palliative care nurse. Patient is an 83-year-old female with past medical history significant for atrial fibrillation, coronary artery disease status post bare metal stent placement, CVA with mild right-sided weakness, hypertension, hyperlipidemia, type 2 diabetes, right breast cancer status post lumpectomy, and dizziness to presented to the emergency room with complaints of dizziness, nausea, and vomiting. 1. Acute large left cerebellar CVA. Medications held as requested by family. Patient comfort care since yesterday. palliative care evaluation appreciated. Patient in hospital today. Pronounced by the emergency management consultant resident. EDRS completed. Psychological support provided. family by the bedside.
--- NOTE | 2019-01-14 16:16 | CP.PCM.PN ---
Subjective - Date & Time of Evaluation Date of Evaluation: 01/11/19 Time of Evaluation: 13:00 - Subjective Subjective: Patient is now in ICU, intubated but moving right arm and leg briskly. No seizure activity noted. ON exam: OFf sedation: PERRL. Left sided neglect. +corneals bl, dolls eyes minimal, weak gag. Moving right arm and leg briskly to pain +2 dtr ul and ll bl. Toes downgoing. NO clonus. Objective - Vital Signs/Intake and Output Vital Signs (last 24 hours): Temp Pulse Resp BP Pulse Ox 100.3 F H 129 H 32 H 210/131 H 90 L 01/13/19 06:00 01/13/19 14:00 01/13/19 14:00 01/13/19 14:00 01/13/19 14:00 Intake and Output: 01/14/19 01/14/19 06:59 18:59 Intake Total 200 Output Total 40 Balance 160 - Labs Labs: 01/12/19 05:30 01/12/19 05:30 PT 12.8 SECONDS (9.4-12.5) H 01/11/19 08:15 INR 1.13 01/11/19 08:15 APTT 32.8 Seconds (26.9-38.3) 01/11/19 08:15 Assessment and Plan - Assessment and Plan (Free Text) Assessment: 83 yr old woman with progressing cerebellar infarct and coffee grounds. PLan; 1. We cannot restart anticoagulation due to coffee grounds at this time. 2. COntinue mannitol and hyperventilation. PRogrnosis guarded. > ruslan
--- NOTE | 2019-01-14 16:24 | CP.PCM.PN ---
Subjective - Date & Time of Evaluation Date of Evaluation: 01/13/19 Time of Evaluation: 13:00 - Subjective Subjective: Patient has agonal breathing, and now has no corneals, no dolls eyes and no gag, and is off sedation. CT head reviewed: shows new Large right heimspheric stroke, VEEG : reviewed, shows occasional sharps and right sided slowing. On exam: agonal breathing, PUpils 3mm sluggishly to light, no facial droop. no dolls eyes no corneals, no gag. +1 dtr ul and ll bl. TOes downgoing. No clonus. Objective - Vital Signs/Intake and Output Vital Signs (last 24 hours): Temp Pulse Resp BP Pulse Ox 100.3 F H 129 H 32 H 210/131 H 90 L 01/13/19 06:00 01/13/19 14:00 01/13/19 14:00 01/13/19 14:00 01/13/19 14:00 Intake and Output: 01/14/19 01/14/19 06:59 18:59 Intake Total 200 Output Total 40 Balance 160 - Labs Labs: 01/12/19 05:30 01/12/19 05:30 PT 12.8 SECONDS (9.4-12.5) H 01/11/19 08:15 INR 1.13 01/11/19 08:15 APTT 32.8 Seconds (26.9-38.3) 01/11/19 08:15 Assessment and Plan - Assessment and Plan (Free Text) Assessment: CT Head: shows subfalcine herniation in left cerebellum and transtentorial herniation of right hemisphere. 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 PLan; 1.Family to discuss comfort care. Extremley poor prognois. DR. mercer
== END 2019-01-14 07:49 | DRG 64 ==
LOC: ED 03:03 → OBSVTOIN 05:54 → INTOOBSV 05:54 → ERH 05:54 → 3RNO 07:12 → 2RNO 10:30 → OBSVTOIN 01-10 14:14 → ICU 01-10 15:46 → 5RNO 01-13 14:24
PROVIDERS: ADMIT Internal Medicine; ATTEND Hospitalist
PROC: 0BH17EZ Insertion of Endotracheal Airway into Trachea, Via Natural or Artificial Opening (ICD-10-PCS; principal; 2019-01-11)
PROC: 5A1945Z Respiratory Ventilation, 24-96 Consecutive Hours (ICD-10-PCS; 2019-01-11)
DX: I63.311 Cerebral infarction due to thrombosis of right middle cerebral artery (principal); G93.6 Cerebral edema; R40.20 Unspecified coma; G93.5 Compression of brain; I69.351 Hemiplegia and hemiparesis following cerebral infarction affecting right dominant side; G91.1 Obstructive hydrocephalus; I48.91 Unspecified atrial fibrillation; I25.10 Atherosclerotic heart disease of native coronary artery without angina pectoris; I11.0 Hypertensive heart disease with heart failure; E11.9 Type 2 diabetes mellitus without complications; E87.6 Hypokalemia; I16.0 Hypertensive urgency; R47.01 Aphasia; I27.20 Pulmonary hypertension, unspecified; E78.5 Hyperlipidemia, unspecified; I50.9 Heart failure, unspecified; I08.1 Rheumatic disorders of both mitral and tricuspid valves; R29.715 NIHSS score 15; R06.03 Acute respiratory distress; Z66 Do not resuscitate; Z51.5 Encounter for palliative care; E66.9 Obesity, unspecified; Z68.28 Body mass index [BMI] 28.0-28.9, adult; Z91.14 Patient's other noncompliance with medication regimen; Z91.19 Patient's noncompliance with other medical treatment and regimen; Z85.3 Personal history of malignant neoplasm of breast; Z79.02 Long term (current) use of antithrombotics/antiplatelets; Z95.1 Presence of aortocoronary bypass graft; Z95.5 Presence of coronary angioplasty implant and graft; Z96.653 Presence of artificial knee joint, bilateral